=== PATIENT | male | born 1945 | race Caucasian/White ===

== ENCOUNTER → 2016-09-11 | Outpatient (CLI) | payer OTHER ==
[~2016-09-11] MED LIST: ACT/35 PO; ASPI81TA82 PO; CALC-20 PO; FINA5TAB PO; HYDR25TA4 PO; MULT-506 PO; OMEG10007 PO; SIMV20TA2 PO; TAMS0.4C59 PO
[2016-09-11 13:09] LABS: ALT/SGPT 21 U/L (12-78); BLOOD UREA NITROGEN 7 mg/dl (7-18); BUN/CREATININE RATIO 10.6 (10-20); CALCIUM 8.9 mg/dl (8.5-10.1); CARBON DIOXIDE 30 mmol/L (21-32); CHLORIDE 98 mmol/L (98-107); CHOLESTEROL 126 mg/dl (0-200); GLUCOSE 91 mg/dl (70-99); SODIUM 134 mmol/L (136-145)
[2016-09-11 13:13] LABS: ALB/GLOB RATIO 1.1 (0.9-2); ALKALINE PHOSPHATASE 44 U/L (45-117); AST/SGOT 21 U/L (15-37); CHOLESTEROL/HDL RATIO 2.4; HDL CHOLESTEROL 53 mg/dl; LDL CHOLESTEROL CALCULATED 59 mg/dl; TRIGLYCERIDES 71 mg/dl (0-150); VERY LOW DENSITY LIPOPROT CALC 14 mg/dl
== END | disposition home or self-care (01) ==
LOC: C.LABPVFM 07:01
PROVIDERS: ATTEND Family Medicine
DX: E78.5 Hyperlipidemia, unspecified (principal); I10 Essential (primary) hypertension; M85.80 Other specified disorders of bone density and structure, unspecified site; E87.1 Hypo-osmolality and hyponatremia

== ENCOUNTER → 2016-10-23 | Outpatient (CLI) | payer OTHER ==
[2016-10-23 13:39] LABS: BLOOD UREA NITROGEN 8 mg/dl (7-18); BUN/CREATININE RATIO 9.8 (10-20); CREATININE 0.81 mg/dl (0.60-1.40)
[2016-10-23 13:45] LABS: PROSTATE SPECIFIC ANTIGEN 0.441 ng/ml (0.000-4.000)
--- NOTE | 2016-10-27 11:46 | CODING QUERY MEDICAL NECESSITY ---
CQSUPPORTING DIAGNOSIS NEEDED A supporting diagnosis is required for the test/procedure performed on this patient in order for us to be reimbursed by the patient's insurance. Please provide a supporting diagnosis for the following test/procedure listed below next to the test name along with your signature. *If there is no additional diagnosis for this patient that would support the following test/procedure please document that below next to the test/procedure. Test(s)/Procedure(s) that require a supporting diagnosis: DOS 10/23/16 PROSTATE SPECIFIC Provider Signature: Date: Thank you Suzanna Walker [employer] Once completed, please kindly fax back to [phone] For questions please call [phone]
== END | disposition home or self-care (01) ==
LOC: C.LABPVFM 09:04
PROVIDERS: ATTEND Neuromusculoskeletal Medicine & OMM
DX: R39.198 Other difficulties with micturition (principal); Z12.5 Encounter for screening for malignant neoplasm of prostate

== ENCOUNTER → 2016-11-27 | Outpatient (CLI) | payer OTHER | END | disposition home or self-care (01) | LOC: C.LABPVFM 10:37 | PROVIDERS: ATTEND Family Medicine | DX: J02.9 Acute pharyngitis, unspecified (principal) ==

== ENCOUNTER → 2017-03-21 | Outpatient (CLI) | payer OTHER ==
[2017-03-21 13:04] LABS: ALT/SGPT 21 U/L (12-78); AST/SGOT 20 U/L (15-37); BLOOD UREA NITROGEN 8 mg/dl (7-18); BUN/CREATININE RATIO 10.3 (10-20); CALCIUM 8.9 mg/dl (8.5-10.1); CARBON DIOXIDE 28 mmol/L (21-32); CHLORIDE 100 mmol/L (98-107); CREATININE 0.74 mg/dl (0.60-1.40); GLUCOSE 88 mg/dl (70-99); POTASSIUM 4.1 mmol/L (3.5-5.1); SODIUM 134 mmol/L (136-145)
[2017-03-21 13:06] LABS: ALB/GLOB RATIO 0.9 (0.9-2); ALKALINE PHOSPHATASE 43 U/L (45-117); CHOLESTEROL 117 mg/dl (0-200); CHOLESTEROL/HDL RATIO 2.1; HDL CHOLESTEROL 57 mg/dl; LDL CHOLESTEROL CALCULATED 46 mg/dl; TRIGLYCERIDES 68 mg/dl (0-150); VERY LOW DENSITY LIPOPROT CALC 14 mg/dl
== END | disposition home or self-care (01) ==
LOC: C.LABPVFM 07:22
PROVIDERS: ATTEND Family Medicine
DX: R06.00 Dyspnea, unspecified (principal)

== ENCOUNTER → 2017-09-24 | Outpatient (CLI) | payer OTHER ==
[2017-09-24 13:35] LABS: ALBUMIN 3.8 gm/dl (3.4-5.0); ALT/SGPT 21 U/L (12-78); AST/SGOT 20 U/L (15-37); BLOOD UREA NITROGEN 13 mg/dl (7-18); CALCIUM 9.2 mg/dl (8.5-10.1); CARBON DIOXIDE 30 mmol/L (21-32); CREATININE 0.84 mg/dl (0.60-1.40); GLUCOSE 79 mg/dl (70-99); POTASSIUM 4.4 mmol/L (3.5-5.1); SODIUM 134 mmol/L (136-145)
[2017-09-24 13:46] LABS: ALKALINE PHOSPHATASE 44 U/L (45-117); TOTAL PROTEIN 7.4 gm/dl (6.4-8.2)
== END | disposition home or self-care (01) ==
LOC: C.LABPVFM 07:58
PROVIDERS: ATTEND Family Medicine
DX: M85.80 Other specified disorders of bone density and structure, unspecified site (principal); I10 Essential (primary) hypertension; E87.1 Hypo-osmolality and hyponatremia

== ENCOUNTER → 2017-10-30 | Outpatient (CLI) | payer OTHER ==
[2017-10-30 13:24] LABS: BLOOD UREA NITROGEN 9 mg/dl (7-18); CARBON DIOXIDE 28 mmol/L (21-32); CREATININE 0.83 mg/dl (0.60-1.40); GLUCOSE 106 mg/dl (70-99); POTASSIUM 4.2 mmol/L (3.5-5.1); SODIUM 133 mmol/L (136-145)
== END | disposition home or self-care (01) ==
LOC: C.LABPVFM 09:49
PROVIDERS: ATTEND Urology
DX: R39.198 Other difficulties with micturition (principal); I10 Essential (primary) hypertension; M85.80 Other specified disorders of bone density and structure, unspecified site; E03.9 Hypothyroidism, unspecified; R06.00 Dyspnea, unspecified; E87.1 Hypo-osmolality and hyponatremia; R79.89 Other specified abnormal findings of blood chemistry

== ENCOUNTER 2024-03-14 10:23 | Inpatient (IN) ==
--- NOTE | 2024-03-14 10:51 | Emergency Department Note ---
History of Present Illness General Chief complaint: Syncope (Near Syncope) Stated complaint: SYNCOPE, FALL Time Seen by Provider: 03/14/24 10:37 Source: patient, family (Daughter and did show up and I talked to them at length), RN notes reviewed and old records reviewed (08/03/23- [facility]- Mild MR, Mild ) Mode of arrival: EMS Limitations: no limitations History of Present Illness This patient is a 78-year-old male who comes in after having a syncopal episode. He is not exactly sure what happened. He was putting some cereal way and was on the ground he had no trauma he said he eased down he feels fine at present no chest pain or shortness of breath no blood or melena stool. he did have blood in his stool in the past and is scheduled for colonoscopy in the rust.e he is on aspirin but no other blood thinners .no recent illness or fever or chills . no headache ,neck pain or stiffness no abdominal pain. No urinary symptoms. No focal numbness or weakness Home Medications Medication Instructions Recorded Confirmed Type calcium carbonate (Calcium 600) 600 mg PO BID 02/25/19 03/11/24 History multivitamin 1 tab PO DAILY 02/25/19 03/11/24 History cholecalciferol (vitamin D3) 10 800 units PO BID #30 caps 04/04/19 03/11/24 Rx mcg (400 unit) capsule nystatin 100,000 unit/gram topical 1 applic topical TID PRN Jock itch 02/15/21 03/11/24 Rx powder #60 grams diclofenac sodium 1 % topical gel 2 g topical QID #100 grams 12/01/21 03/11/24 Rx (Arthritis Pain (diclofenac)) ketoconazole 2 % topical cream 1 applic topical BID PRN jock itch 11/10/22 03/11/24 Rx #60 grams psyllium husk 0.4 gram capsule 0.4 g PO QDL 03/23/23 03/11/24 History (Metamucil) simvastatin 20 mg tablet 20 mg PO QPM #90 tabs 07/11/23 03/11/24 Rx memantine 10 mg tablet 10 mg PO BID #180 tabs 09/21/23 03/11/24 Rx fluticasone propionate 50 2 spray intranasal DAILY PRN 12/05/23 03/11/24 History mcg/actuation nasal Congestion spray,suspension (Flonase Allergy Relief) peg 3350-sod sulf,[id number] See Rx Instructions PO .COMPLEX #2 03/07/24 Rx 178.7-7.3-0.5-1.12-0.9 gram oral mL soln (Suflave) amlodipine 5 mg tablet 5 mg PO QAM 03/11/24 03/11/24 History donepezil 5 mg tablet 5 mg PO QAM 03/11/24 03/11/24 History finasteride 5 mg tablet 5 mg PO QAM 03/11/24 03/11/24 History levothyroxine 88 mcg tablet 88 mcg PO QAM 03/11/24 03/11/24 History lisinopril 10 mg tablet 10 mg PO QAM 03/11/24 03/11/24 History tamsulosin 0.4 mg capsule 0.4 mg PO HS 03/11/24 03/11/24 History Allergies Allergy/AdvReac Type Severity Reaction Status Date / Time azithromycin [From Zithromax] Allergy Unknown Unknown Verified 03/11/24 08:32 ciprofloxacin AdvReac Mild Diarrhea Verified 03/11/24 08:33 codeine AdvReac Mild Hallucinati Verified 03/11/24 08:33 ng Past Med/Surg History Problem List (Updated 03/14/24 @ 14:47 by López Pretty MD) Diaphoresis (Acute) History of aortic valvular stenosis (Acute) COVID-19 virus antibody negative (Acute) Syncope (Acute) Tremor Memory impairment of gradual onset Arthritis of both hands Allergic rhinitis Vitamin D deficiency Benign localized prostatic hyperplasia with lower urinary tract symptoms (LUTS) Hearing loss History of squamous cell carcinoma in situ Hyponatremia Murmur Tinea cruris Osteoporosis Hypothyroidism Dyslipidemia Benign hypertension Medical History Hearing loss Memory impairment of gradual onset HTN (hypertension) Dyslipidemia Hypothyroidism Murmur pt unaware Tremor Osteoporosis BPH (benign prostatic hyperplasia) Cyclic citrullinated peptide (CCP) antibody positive Surgical History History of colonoscopy History of tooth extraction History of squamous cell carcinoma excision Hx of hernia repair Hx of adenoidectomy Hx of tonsillectomy Family History Grandfather (Paternal) Colorectal cancer Father Myocardial infarction Mother Cancer Denies family history of Ovarian cancer Prostate cancer Breast cancer Social History Smoking Status: Never smoker Second Hand Exposure: No; Do You Dip or Chew Tobacco: No; Hx Alcohol Use: No Hx Substance Use: No Preferred Language: Beninese Communication Ability: Effective Visual Impairment: Limited Hearing Ability: Normal Coordinator Cardiopulmonary Services Required: No Beliefs That Will Affect Care: None marital status: Current Living Situation: Spouse current occupational status: retired How many Children do You have: 1 Feels Safe at Home: Yes Childhood Exposure to Second-Hand Smoke: Yes Diet: regular caffeine: No during the past year weight has: remained stable Dental Care, Regularly: Yes Physical Activity Frequency: 3-4 Times per Week Seatbelt Use: always Sunscreen Use: Yes Assistive Devices: Glasses Review of Systems A total of 10 systems reviewed and were otherwise negative Physical Exam Vital Signs Vital Signs - 24 hr 03/14/24 10:31 03/14/24 10:46 03/14/24 10:48 Temperature 36.4 C L Temperature Source Oral Pulse Rate 66 70 Pulse Rate from SpO2 Sensor 70 Respiratory Rate 15 18 Respiratory Effort / Characteristics Non-Labored Spontaneous Respiratory Depth Normal Blood Pressure 156/74 H Blood Pressure Mean 101 Pulse Oximetry 98 97 100 Oxygen Delivery Method Room Air Room Air Sepsis Recent Fever Within 48 Hours No Sepsis New/Unexplained Change in Mental Status N/A Sepsis Action Taken by Nursing No Action Required 03/14/24 11:00 03/14/24 11:01 03/14/24 11:21 Temperature Temperature Source Pulse Rate 69 63 Pulse Rate from SpO2 Sensor 73 64 Respiratory Rate 19 19 Respiratory Effort / Characteristics Respiratory Depth Blood Pressure 136/107 H Blood Pressure Mean 115 Pulse Oximetry 97 96 Oxygen Delivery Method Sepsis Recent Fever Within 48 Hours Sepsis New/Unexplained Change in Mental Status Sepsis Action Taken by Nursing 03/14/24 11:30 03/14/24 11:33 03/14/24 12:00 Temperature Temperature Source Pulse Rate 62 72 Pulse Rate from SpO2 Sensor 61 70 Respiratory Rate 14 16 Respiratory Effort / Characteristics Respiratory Depth Blood Pressure 121/64 Blood Pressure Mean 95 Pulse Oximetry 98 99 Oxygen Delivery Method Sepsis Recent Fever Within 48 Hours Sepsis New/Unexplained Change in Mental Status Sepsis Action Taken by Nursing 03/14/24 12:00 03/14/24 12:00 03/14/24 12:02 Temperature Temperature Source Pulse Rate 71 Pulse Rate from SpO2 Sensor Respiratory Rate Respiratory Effort / Characteristics Respiratory Depth Blood Pressure 148/78 H 148/78 H Blood Pressure Mean 91 91 Pulse Oximetry Oxygen Delivery Method Sepsis Recent Fever Within 48 Hours Sepsis New/Unexplained Change in Mental Status Sepsis Action Taken by Nursing 03/14/24 12:24 03/14/24 12:30 03/14/24 12:39 Temperature Temperature Source Pulse Rate 76 73 Pulse Rate from SpO2 Sensor 76 72 Respiratory Rate 23 17 Respiratory Effort / Characteristics Respiratory Depth Blood Pressure 140/84 Blood Pressure Mean 101 Pulse Oximetry 98 99 Oxygen Delivery Method Sepsis Recent Fever Within 48 Hours Sepsis New/Unexplained Change in Mental Status Sepsis Action Taken by Nursing 03/14/24 12:48 03/14/24 12:59 03/14/24 13:00 Temperature Temperature Source Pulse Rate 73 Pulse Rate from SpO2 Sensor 75 Respiratory Rate 17 Respiratory Effort / Characteristics Respiratory Depth Blood Pressure 155/77 H 149/86 H Blood Pressure Mean 117 89 Pulse Oximetry 98 Oxygen Delivery Method Sepsis Recent Fever Within 48 Hours Sepsis New/Unexplained Change in Mental Status Sepsis Action Taken by Nursing 03/14/24 13:09 Temperature Temperature Source Pulse Rate 79 Pulse Rate from SpO2 Sensor 79 Respiratory Rate 18 Respiratory Effort / Characteristics Respiratory Depth Blood Pressure Blood Pressure Mean Pulse Oximetry 97 Oxygen Delivery Method Sepsis Recent Fever Within 48 Hours Sepsis New/Unexplained Change in Mental Status Sepsis Action Taken by Nursing General: Well developed well nourished older male who appears in no acute distress, breathing comfortably on room air. Normal speech HEENT: Normal cephalic atraumatic. Pupils are equal round and reactive to light. Sclera anicteric. Extraocular movements are intact. Oropharynx is pink with moist mucous membranes. No swelling of the mouth lips or tongue. Neck: Supple with a midline trachea. No meningeal signs or stiffness, no JVD or bruits. No Stridor. Chest: Clear to auscultation bilaterally. No wheezes or rhonchi. No increased work of breathing. Heart: Regular rate and rhythm.he does have a 2 out of 6 systolic murmur heard in the right sternal border Abdomen: Soft nontender, nondistended without rebound guarding or rigidity. Extremities: No cyanosis clubbing or edema. No calf tenderness or assymetry Spine/Back. Non tender to palpation. No CVA tenderness Skin: Good turgor without rashes. Neurologic exam: Cranial nerves two through 12 are intact. Motor and sensation are intact and symmetrical throughout. Course Administered Medications Discontinued Medications Sodium Chloride (Nss) 500 mls @ 999 mls/hr IV .Q31M ONE Stop: 03/14/24 13:05 Last Infusion: 03/14/24 13:27 Dose: Infused Documented By: Admin: 03/14/24 12:41 Dose: 999 mls/hr Documented By: ROSANNE Medical Decision Making Differential Diagnosis Syncope, arrhythmia, valvular heart disease, anemia, dehydration Medical Records Attestation: I reviewed the patient's medical records. Home Medications Current Medication List: was personally reviewed by me Laboratory Data Attestation: I reviewed the patient's lab results. 03/14/24 10:37 03/14/24 10:37 Lab Results 03/14/24 03/14/24 03/14/24 Range/Units 10:37 11:00 12:25 WBC 10.64 (4.8-10.8) K/ul RBC 4.62 L (4.70-6.10) M/uL Hgb 14.7 (14.0-18.0) g/dl Hct 43.1 (42.0-52.0) % MCV 93.3 (80.0-100.0) fL MCH 31.8 (25.0-34.0) pg MCHC 34.1 (32.0-36.0) g/dL RDW Std Deviation 45.4 (36.4-46.3) fL RDW Coeff of Tiny 13.3 (11.5-14.5) % Plt Count 248 (130-400) K/uL MPV 10.0 (9.4-12.4) fL Immature Gran % (Auto) 0.8 % Neut % (Auto) 80.5 % Lymph % (Auto) 8.0 % [place] % (Auto) 8.4 % Eos % (Auto) 1.9 % Baso % (Auto) 0.4 % Neut # (Auto) 8.58 H (1.40-6.50) K/uL Lymph # (Auto) 0.85 L (1.20-3.40) K/uL [place] # (Auto) 0.89 H (0.11-0.59) K/uL Eos # (Auto) 0.20 (0.00-0.50) K/uL Baso # (Auto) 0.04 (0.00-0.20) K/uL Immature Gran # (Auto) 0.08 (0.01-0.20) K/uL Sodium 132 L (136-145) mmol/L Potassium 4.1 (3.5-5.1) mmol/L Chloride 97 L (98-107) mmol/L Carbon Dioxide 28 (21-32) mmol/L Anion Gap 7 (3-11) BUN 13 (6-23) mg/dl Creatinine 0.93 (0.6-1.4) mg/dl Est Cr Clr Drug Dosing 62.3 ml/min eGFR 83.53 BUN/Creatinine Ratio 14.0 (10-20) Glucose 117 H (70-99(Fasting)) mg/dl Calcium 9.6 (8.6-10.3) mg/dl Total Bilirubin 0.6 (0.2-1.0) mg/dl AST 17 (13-39) U/L ALT 10 (7-52) U/L Alkaline Phosphatase 47 (34-104) U/L Troponin I High Sens 7.0 (0-20) pg/ml B-Natriuretic Peptide 69 (0-100) pg/ml Total Protein 7.4 (6.0-8.3) gm/dl Albumin 4.3 (3.4-5.0) gm/dl Globulin 3.1 (2.5-4.0) gm/dl Albumin/Globulin Ratio 1.4 (0.9-2) Lipase 6 L (11-82) U/L TSH 11.715 H (0.300-4.500) uIu/ml Free T4 0.89 (0.61-1.60) ng/dl Adenovirus (PCR) Not Detected (NotDetected) B. pertussis DNA (PCR) Not Detected (NotDetected) B.parapertussis DNA PCR Not Detected (NotDetected) C. pneumoniae DNA (PCR) Not Detected (NotDetected) Coronavirus OC43 (PCR) Not Detected (NotDetected) Coronavirus HKU1 (PCR) Not Detected (NotDetected) Coronavirus 229E (PCR) Not Detected (NotDetected) SARS-CoV-2 (PCR) Not Detected (NotDetected) Coronavirus NL63 (PCR) Not Detected (NotDetected) Human Metapneumovir PCR Not Detected (NotDetected) Influenza Type A (PCR) Not Detected (NotDetected) Influenza Type B (PCR) Not Detected (NotDetected) M. pneumoniae (PCR) Not Detected (NotDetected) Parainfluenza 1 (PCR) Not Detected (NotDetected) Parainfluenza 2 (PCR) Not Detected (NotDetected) Parainfluenza 3 (PCR) Not Detected (NotDetected) Parainfluenza 4 (PCR) Not Detected (NotDetected) RSV (PCR) Not Detected (NotDetected) Entero/Rhino (PCR) Not Detected (NotDetected) 03/14/24 Range/Units 12:30 WBC (4.8-10.8) K/ul RBC (4.70-6.10) M/uL Hgb (14.0-18.0) g/dl Hct (42.0-52.0) % MCV (80.0-100.0) fL MCH (25.0-34.0) pg MCHC (32.0-36.0) g/dL RDW Std Deviation (36.4-46.3) fL RDW Coeff of Tiny (11.5-14.5) % Plt Count (130-400) K/uL MPV (9.4-12.4) fL Immature Gran % (Auto) % Neut % (Auto) % Lymph % (Auto) % [place] % (Auto) % Eos % (Auto) % Baso % (Auto) % Neut # (Auto) (1.40-6.50) K/uL Lymph # (Auto) (1.20-3.40) K/uL [place] # (Auto) (0.11-0.59) K/uL Eos # (Auto) (0.00-0.50) K/uL Baso # (Auto) (0.00-0.20) K/uL Immature Gran # (Auto) (0.01-0.20) K/uL Sodium (136-145) mmol/L Potassium (3.5-5.1) mmol/L Chloride (98-107) mmol/L Carbon Dioxide (21-32) mmol/L Anion Gap (3-11) BUN (6-23) mg/dl Creatinine (0.6-1.4) mg/dl Est Cr Clr Drug Dosing ml/min eGFR BUN/Creatinine Ratio (10-20) Glucose (70-99(Fasting)) mg/dl Calcium (8.6-10.3) mg/dl Total Bilirubin (0.2-1.0) mg/dl AST (13-39) U/L ALT (7-52) U/L Alkaline Phosphatase (34-104) U/L Troponin I High Sens 8.0 (0-20) pg/ml B-Natriuretic Peptide (0-100) pg/ml Total Protein (6.0-8.3) gm/dl Albumin (3.4-5.0) gm/dl Globulin (2.5-4.0) gm/dl Albumin/Globulin Ratio (0.9-2) Lipase (11-82) U/L TSH (0.300-4.500) uIu/ml Free T4 (0.61-1.60) ng/dl Adenovirus (PCR) (NotDetected) B. pertussis DNA (PCR) (NotDetected) B.parapertussis DNA PCR (NotDetected) C. pneumoniae DNA (PCR) (NotDetected) Coronavirus OC43 (PCR) (NotDetected) Coronavirus HKU1 (PCR) (NotDetected) Coronavirus 229E (PCR) (NotDetected) SARS-CoV-2 (PCR) (NotDetected) Coronavirus NL63 (PCR) (NotDetected) Human Metapneumovir PCR (NotDetected) Influenza Type A (PCR) (NotDetected) Influenza Type B (PCR) (NotDetected) M. pneumoniae (PCR) (NotDetected) Parainfluenza 1 (PCR) (NotDetected) Parainfluenza 2 (PCR) (NotDetected) Parainfluenza 3 (PCR) (NotDetected) Parainfluenza 4 (PCR) (NotDetected) RSV (PCR) (NotDetected) Entero/Rhino (PCR) (NotDetected) Imaging Data Attestation: I personally reviewed and interpreted this imaging study as follows: My Impression: Chest x-rayno acute infiltrate, failure, pneumothorax seen Head CTno hemorrhage or mass effect seen Radiologist's Impression: Chest X-Ray 03/14/24 10:46 XR chest 1V portable HISTORY: 78 years-old Male Chest pain, nonspecific COMPARISON: 09/27/2012 TECHNIQUE: AP view of the chest FINDINGS: Cardiomediastinal and hilar silhouettes are within normal limits. Atherosclerosis of the aorta. No pneumothorax, pleural effusion or airspace consolidation. Spondylitic spurring of the spine. IMPRESSION: No acute process. ACT 112: Negative or not required by law. The above report was generated using voice recognition software. It may contain grammatical, syntax or spelling errors. Electronically signed by: Jarred Quintanilla M.D. 03/14/2024 12:[address] 03/14/24 12:35 CT head/brain wo con CLINICAL HISTORY: 78 years-old Male with syncope/fall. Acute head trauma TECHNIQUE: Multiple axial CT images of the head were obtained without contrast. A dose lowering technique was utilized adhering to the principles of ALARA. CT DOSE: 547.75 mGy.cm COMPARISON: None. FINDINGS: No acute intracranial hemorrhage, midline shift, intracranial mass, hydrocephalus, territorial ischemia or abnormal extra-axial collection. Involutional changes with probable mild chronic microvascular ischemic disease. The calvarium is intact. The paranasal sinuses, mastoid air cells, and middle ear cavities are clear. IMPRESSION: No acute intracranial abnormality or calvarial fracture. ACT 112: Negative or not required by law. The above report was generated using voice recognition software. It may contain grammatical, syntax or spelling errors. Electronically signed by: Jarred Quintanilla M.D. 03/14/2024 1:36 PM ECG Data Attestation: I personally reviewed and interpreted this ECG as follows: Indication: + syncope Rate (beats per minute): 72 Rhythm: + normal sinus ECG Intervals/blocks: + Normal QRS, + Normal QT and + Normal IL ECG [place]: + Normal ECG ST segments: + Normal ST segments ECG Findings: no PACs or no PVCs Comparison ECG Date: from (10/27/2012) Change: no significant change Additional Comments: EKG #2: Normal sinus rhythm rate of 70 no acute ischemic changes or ectopy no change compared EKG #1 MDM Narrative This patient comes in as described above. He was placed in room A10. He apparently had a syncopal episode he is asymptomatic he looks well. IV access established he was given gentle rehydration with a 500 cc normal saline bolus. Multiple blood testing was obtained EKG shows no ischemic changes or ectopy. He had no trauma. He has no headache he is on no blood thinners. His initial EKG was unremarkable he was stable on the personnel monitor. His second EKG shows no change compared to the first his initial troponin was negative we ordered a second. He has no significant electrolyte or metabolic abnormality. His family showed up and said that he was very diaphoretic after this happened and they are not sure about trauma or not so we did order CAT scan of his head. He does have a normal neurologic exam and is on no blood thinners. CAT scan of his head was unremarkable. Bio fire was also negative. Second EKG was unchanged compared to first troponin was also negative. Talking to family he was very diaphoretic after passing out he was shaky I do not think is likely seizure. Reviewing the echo, he he did have an echo earlier this year which showed mild aortic stenosis and mild MR which makes valvular heart disease less likely but still possible. I do think given his age and his comorbidities he would benefit from observation and monitoring. I have consulted Dr. Beckham , and the [facility] hospitalist team, to see this patient in the ER for these measures. Continuous cardiac monitoring: Orders placed in EMR for continuous cardiac monitoring: Upon my evaluation patient was noted to be in normal sinus rhythm rate 72 Impression & Plan Syncope, COVID-19 virus antibody negative, History of aortic valvular stenosis, Diaphoresis Discharge Plan Visit Data Chief Complaint: Syncope (Near Syncope) Stated Complaint: SYNCOPE, FALL ED Provider: López Pretty Discharge Problem: Syncope, COVID-19 virus antibody negative, History of aortic valvular stenosis, Diaphoresis Forms Stand Alone Forms: My [facility] Prescriptions Prescriptions: No Action cholecalciferol (vitamin D3) 400 unit capsule 800 units PO BID Qty: 30 0RF nystatin 100,000 unit/gram powder 1 applic TOP TID PRN (Reason: Jock itch) Qty: 60 11RF ketoconazole 2 % cream 1 applic topical BID PRN (Reason: jock itch) Qty: 60 11RF simvastatin 20 mg tablet 20 mg PO QPM Qty: 90 3RF Suflave 178.7-7.3-0.5 gram recon soln See Rx Instructions PO .COMPLEX Qty: 2 0RF Rx Instructions: orally; TAKE FIRST DOSE AT 6 PM AND SECOND DOSE 6 HOURS PRIOR TO PROCEDURE BIN: [id number] PCN: [id number] GROUP: [id number] psyllium husk [Metamucil] 0.4 gram capsule 0.4 g PO QDL memantine 10 mg tablet 10 mg PO BID Qty: 180 3RF fluticasone propionate [Flonase Allergy Relief] 50 mcg/actuation spray,suspension 2 spray intranasal DAILY PRN (Reason: Congestion) Rx Instructions: administer into each nostril calcium carbonate [Calcium 600] 600 mg calcium (1,500 mg) tablet 600 mg PO BID multivitamin tablet 1 tab PO DAILY diclofenac sodium [Arthritis Pain (diclofenac)] 1 % gel 2 g topical QID Qty: 100 5RF Rx Instructions: apply to single elbow, wrist or hand; for hand includes palm/fingers/back of hand donepezil 5 mg tablet 5 mg PO QAM amlodipine 5 mg tablet 5 mg PO QAM Rx Instructions: TAKE 1 TABLET EVERY MORNING levothyroxine 88 mcg tablet 88 mcg PO QAM tamsulosin 0.4 mg capsule 0.4 mg PO HS Rx Instructions: Take 30 minutes after a meal lisinopril 10 mg tablet 10 mg PO QAM finasteride 5 mg tablet 5 mg PO QAM Referrals Referrals: Gigi Smiley DO [Primary Care Provider] - Discharge Problem: Syncope Qualifiers: Syncope type: unspecified Qualified Code(s): R55 - Syncope and collapse
[2024-03-14 11:13] LABS: Basophils # (auto) 0.04 K/uL (0.00-0.20); Basophils % (auto) 0.4 %; Eosinophils % (auto) 1.9 %; Hematocrit (blood only) 43.1 % (42.0-52.0); Hemoglobin 14.7 g/dl (14.0-18.0); Immature Granulocytes # (auto) 0.08 K/uL (0.01-0.20); Immature Granulocytes % (auto) 0.8 %; Lymphocytes # (auto) 0.85 K/uL (1.20-3.40); Mean Corpuscular Hemoglobin 31.8 pg (25.0-34.0); Mean Corpuscular Hgb Conc 34.1 g/dL (32.0-36.0); Mean Corpuscular Volume 93.3 fL (80.0-100.0); Monocytes # (auto) 0.89 K/uL (0.11-0.59); Monocytes % (auto) 8.4 %; Neutrophils # (auto) 8.58 K/uL (1.40-6.50); Neutrophils % (auto) 80.5 %; Platelet Count 248 K/uL (130-400); RDW Coefficient of Variation 13.3 % (11.5-14.5); RDW Standard Deviation 45.4 fL (36.4-46.3); Red Blood Count 4.62 M/uL (4.70-6.10); White Blood Count 10.64 K/ul (4.8-10.8)
[2024-03-14 11:30] LABS: Albumin Globulin Ratio 1.4 (0.9-2); Albumin Level 4.3 gm/dl (3.4-5.0); Bilirubin,Total 0.6 mg/dl (0.2-1.0); Calcium 9.6 mg/dl (8.6-10.3); Creatinine Clr Calc Pharmacy 62.3 ml/min; Globulin 3.1 gm/dl (2.5-4.0); Potassium 4.1 mmol/L (3.5-5.1); Total Protein 7.4 gm/dl (6.0-8.3)
[2024-03-14 11:45] LABS: Thyroid Stimulating Hormone 11.715 uIu/ml (0.300-4.500)
--- NOTE | 2024-03-14 12:03 | XRay Report ---
XR chest 1V portable HISTORY: 78 years-old Male Chest pain, nonspecific COMPARISON: 09/27/2012 TECHNIQUE: AP view of the chest FINDINGS: Cardiomediastinal and hilar silhouettes are within normal limits. Atherosclerosis of the aorta. No pn eumothorax, pleural effusion or airspace consolidation. Spondylitic spurring of the spine. IMPRESSION: No acute process. ACT 112: Negative or not required by law. The above report was generated using voice recognition software. It may contain grammatical, syntax o r spelling errors. Electronically signed by: Jarred Quintanilla M.D. 03/14/2024 12:02 PM
[2024-03-14 12:19] LABS: T4 Free Thyroxine 0.89 ng/dl (0.61-1.60)
[2024-03-14] MEDS: SODIUM CHLORIDE 0.9% 500 ML IV ONE (12:41)
--- NOTE | 2024-03-14 13:37 | CT Scan Report ---
CT head/brain wo con CLINICAL HISTORY: 78 years-old Male with syncope/fall. Acute head trauma TECHNIQUE: Multiple axial CT images of the head were obtained without contrast. A dose lowering tech nique was utilized adhering to the principles of ALARA. CT DOSE: 547.75 mGy.cm COMPARISON: None. FINDINGS: No acute intracranial hemorrhage, midline shift, intracranial mass, hydrocephalus, territorial ischem ia or abnormal extra-axial collection. Involutional changes with probable mild chronic microvascular ischemic disease. The calvarium is intact. The paranasal sinuses, mastoid air cells, and middle ear cavities are clear . IMPRESSION: No acute intracranial abnormality or calvarial fracture. ACT 112: Negative or not required by law. The above report was generated using voice recognition software. It may contain grammatical, syntax o r spelling errors. Electronically signed by: Jarred Quintanilla M.D. 03/14/2024 1:36 PM
[2024-03-14 13:41] LABS: Adenovirus PCR Not Detected (NotDetected); Bordetella parapertussis PCR Not Detected (NotDetected); Bordetella pertussis PCR Not Detected (NotDetected); Chlamydia pneumoniae PCR Not Detected (NotDetected); Coronavirus 229E PCR Not Detected (NotDetected); Coronavirus CoV-2 (COVID19)PCR Not Detected (NotDetected); Coronavirus HKU1 PCR Not Detected (NotDetected); Coronavirus NL63 PCR Not Detected (NotDetected); Coronavirus OC43PCR Not Detected (NotDetected); Human Metapneumovirus PCR Not Detected (NotDetected); Influenza A PCR Not Detected (NotDetected); Influenza B PCR Not Detected (NotDetected); Mycoplasma pneumoniae PCR Not Detected (NotDetected); Parainfluenza Virus 1 PCR Not Detected (NotDetected); Parainfluenza Virus 2 PCR Not Detected (NotDetected); Parainfluenza Virus 3 PCR Not Detected (NotDetected); Parainfluenza Virus 4 PCR Not Detected (NotDetected); Respiratory Syncytial VirusPCR Not Detected (NotDetected); Rhinovirus/Enterovirus PCR Not Detected (NotDetected)
--- NOTE | 2024-03-14 14:09 | History & Physical Report ---
Date of Service March 14, 2024 Assessment & Plan (1) Syncope: Plan: No symptoms prior and appears back to his normal self. Somewhat concerning for cardiac arrhythmia. Plan to monitor overnight on telemetry but if no abnormal rhythm consider monitoring analyst as outpatient. Murmur on exam although this has been present for many years with only mild aortic stenosis on echo in July - due to new syncope however we will repeat this Continue his usual antihypertensives with amlodipine, lisinopril - monitor for orthostatics in a.m. Plan Hypothyroidism - TSH elevated but free T4 normal, continue his usual levothyro xine VTE prophylaxis - SCDs Diet - regular Disposition - observation to med/tele Admission and Anticipated Discharge Date Admission Date: March 14, 2024 History of Present Illness Chief Complaint: Syncope Primary Care Provider: Gigi Smiley DO Randall Bailey is a 78 year old male who presents to the ER following a syncopal event earlier today. He is unsure exactly what happened. He was at a countertop in his kitchen. He felt fine prior to the event but does not remember falling to the ground. No lightheadedness, shortness of breath or chest pain prior to f alling. He woke up on the floor and was found by his . No postictal phase. No seizure-like activity noticed by his . He is currently feeling back to his normal self. Allergies Allergy/AdvReac Type Severity Reaction Status Date / Time azithromycin [From Zithromax] Allergy Unknown Unknown Verified 03/11/24 08:32 ciprofloxacin AdvReac Mild Diarrhea Verified 03/11/24 08:33 codeine AdvReac Mild Hallucinati Verified 03/11/24 08:33 ng Home Medications Medication Instructions Recorded Confirmed Type calcium carbonate (Calcium 600) 600 mg PO BID 02/25/19 03/11/24 History multivitamin 1 tab PO DAILY 02/25/19 03/11/24 History cholecalciferol (vitamin D3) 10 800 units PO BID #30 caps 04/04/19 03/11/24 Rx mcg (400 unit) capsule nystatin 100,000 unit/gram topical 1 applic topical TID PRN Jock itch 02/15/21 03/11/24 Rx powder #60 grams diclofenac sodium 1 % topical gel 2 g topical QID #100 grams 12/01/21 03/11/24 Rx (Arthritis Pain (diclofenac)) ketoconazole 2 % topical cream 1 applic topical BID PRN jock itch 11/10/2207/04 Rx #60 grams psyllium husk 0.4 gram capsule 0.4 g PO QDL 03/23/23 03/11/24 History (Metamucil) simvastatin 20 mg tablet 20 mg PO QPM #90 tabs 07/11/23 03/11/24 Rx memantine 10 mg tablet 10 mg PO BID #180 tabs 09/21/23 03/11/24 Rx fluticasone propionate 50 2 spray intranasal DAILY PRN 12/05/23 03/11/24 History mcg/actuation nasal Congestion spray,suspension (Flonase Allergy Relief) peg 3350-sod sulf,[id number] See Rx Instructions PO .COMPLEX #2 03/07/24 Rx 178.7-7.3-0.5-1.12-0.9 gram oral mL soln (Suflave) amlodipine 5 mg tablet 5 mg PO QAM 03/11/24 03/11/24 History donepezil 5 mg tablet 5 mg PO QAM 03/11/24 03/11/24 History finasteride 5 mg tablet 5 mg PO QAM 03/11/24 03/11/24 History levothyroxine 88 mcg tablet 88 mcg PO QAM 03/11/24 03/11/24 History lisinopril 10 mg tablet 10 mg PO QAM 03/11/24 03/11/24 History tamsulosin 0.4 mg capsule 0.4 mg PO HS 03/11/24 03/11/24 History Past Med/Surg History Problem List (Updated 03/14/24 @ 22:40 by Gurwinder Beckham MD) Diaphoresis (Acute) History of aortic valvular stenosis (Acute) Syncope (Acute) Tremor Memory impairment of gradual onset Arthritis of both hands Allergic rhinitis Vitamin D deficiency Benign localized prostatic hyperplasia with lower urinary tract symptoms (LUTS) Hearing loss History of squamous cell carcinoma in situ Hyponatremia Murmur Tinea cruris Osteoporosis Hypothyroidism Dyslipidemia Benign hypertension Medical History Hearing loss Memory impairment of gradual onset HTN (hypertension) Dyslipidemia Hypothyroidism Murmur pt unaware Tremor Osteoporosis BPH (benign prostatic hyperplasia) Cyclic citrullinated peptide (CCP) antibody positive Surgical History History of colonoscopy History of tooth extraction History of squamous cell carcinoma excision Hx of hernia repair Hx of adenoidectomy Hx of tonsillectomy Family History Grandfather (Paternal) Colorectal cancer Father Myocardial infarction Mother Cancer Denies family history of Ovarian cancer Prostate cancer Breast cancer Social History Smoking Status: Never smoker Second Hand Exposure: No; Do You Dip or Chew Tobacco: No; Hx Alcohol Use: No Hx Substance Use: No Preferred Language: Maltese Communication Ability: Effective Visual Impairment: Limited Hearing Ability: Normal Relationship Executive Required: No Beliefs That Will Affect Care: None marital status: Current Living Situation: Spouse current occupational status: retired How many Children do You have: 1 Other Information That Helps Us Care for You: No Feels Safe at Home: Yes Safety Concerns: Feels Safe At This Time Childhood Exposure to Second-Hand Smoke: Yes Diet: regular caffeine: No during the past year weight has: remained stable Dental Care, Regularly: Yes Physical Activity Frequency: 3-4 Times per Week Seatbelt Use: always Sunscreen Use: Yes Assistive Devices: Glasses Review of Systems Review of Systems: All systems reviewed & are unremarkable except as noted in HPI & below Physical Exam Constitutional: WD/WN, vitals as above Eyes: PERRL, conjunctivae normal, anicteric sclerae ENMT: external ear and nose normal, oropharynx normal Respiratory: normal respiratory effort, lungs clear to auscultation Cardiovascular: Rate/Rhythm: regular rate and regular rhythm Heart Sounds: + murmur (GIANCARLO loudest in LUSB) Gastrointestinal (Abdomen): normal bowel sounds, soft, nontender, no hepatosplenomegaly Musculoskeletal: no cyanosis or clubbing, extremities motor strength 5/5 Skin: no rashes, warm and dry Neurologic: moves all extremities and awake; not confused Psychiatric: A+Ox3, euthymic affect Results & Data Results & Data Vital Signs (Past 12 Hours) Vital Signs Temp Pulse Resp BP Pulse Ox O2 Del Method 03/14/24 13:09 79 18 97 03/14/24 13:00 149/86 H 10/04/24 12:59 155/77 H 03/14/24 12:48 73 17 98 03/14/24 12:39 73 17 99 03/14/24 12:30 140/84 03/14/24 12:24 76 23 98 03/14/24 12:02 71 03/14/24 12:00 148/78 H 03/14/24 12:00 148/78 H 03/14/24 12:00 72 16 99 03/14/24 11:33 62 14 98 03/14/24 11:30 121/64 03/14/24 11:21 63 19 96 03/14/24 11:01 136/107 H 03/14/24 11:00 69 19 97 03/14/24 10:48 70 18 100 03/14/24 10:46 97 Room Air 03/14/24 10:31 36.4 C L 66 15 156/74 H 98 Room Air Laboratory Results Abnormal lab results 03/14/24 Range/Units 10:37 RBC 4.62 L (4.70-6.10) M/uL Neut # (Auto) 8.58 H (1.40-6.50) K/uL Lymph # (Auto) 0.85 L (1.20-3.40) K/uL Churchill # (Auto) 0.89 H (0.11-0.59) K/uL Sodium 132 L (136-145) mmol/L Chloride 97 L (98-107) mmol/L Glucose 117 H (70-99(Fasting)) mg/dl Lipase 6 L (11-82) U/L TSH 11.715 H (0.300-4.500) uIu/ml Diagnostic Findings CT head/brain wo con CLINICAL HISTORY: 78 years-old Male with syncope/fall. Acute head trauma TECHNIQUE: Multiple axial CT images of the head were obtained without contrast. A dose lowering technique was utilized adhering to the principles of ALARA. CT DOSE: 547.75 mGy.cm COMPARISON: None. FINDINGS: No acute intracranial hemorrhage, midline shift, intracranial mass, hydrocephal us, territorial ischemia or abnormal extra-axial collection. Involutional changes with probable mild chronic microvascular ischemic disease. The calvarium is intact. The paranasal sinuses, mastoid air cells, and middle ear cavities are clear. IMPRESSION: No acute intracranial abnormality or calvarial fracture. XR chest 1V portable HISTORY: 78 years-old Male Chest pain, nonspecific COMPARISON: 09/27/2012 TECHNIQUE: AP view of the chest FINDINGS: Cardiomediastinal and hilar silhouettes are within normal limits. Atherosclerosis of the aorta. No pneumothorax, pleural effusion or airspace consolidation. Spondylitic spurring of the spine. IMPRESSION: No acute process. Medications Administered ER medications given: Normal saline 500 mg bolus ECG Rate (beats per minute): 72 Rhythm: normal sinus Findings: no acute ischemic change Comparison ECG Date: from (September 27, 2012) Change: no significant change Code Status & VTE Plan Code Status Full VTE Prophylaxis Plan VTE Prophylaxis will be ordered: Yes PG Care Time/CCT Total # of Minutes Spent Total Time Spent with Patient: Total time spent is greater than 50% in coordination of care (as documented) at patient's floor/unit and/or counseling patient: Coding Level of Care Code 32948 INT INP/OBS CARE 2/55MIN Diagnoses Syncope, unspecified syncope type R55 Syncope type: unspecified (1) Syncope Syncope type: unspecified Qualified Code(s): R55 - Syncope and collapse
[2024-03-14] MEDS: FINASTERIDE 5 MG TAB PO STA (15:55)
[2024-03-14] MEDS: amLODIPine BESYLATE 5 MG TAB PO STA (15:55)
[2024-03-14] MEDS: lisinopril 10 MG TAB PO STA (15:55)
[2024-03-14 16:07] LABS: Appearance Urine Cloudy (Clear); Bacteria Urine Automated None Seen (None Seen); Bilirubin Urine Negative (Negative); Blood Urine Negative (Negative); Color Urine Yellow; Epithelial Cell Urine Auto 0-2 /hpf (0-2); Glucose Urine UA Negative (Negative); Hyaline Casts Urine Present /lpf (None Presnt); Ketones Urine 1+ (Negative); Leukocyte Esterase Urine Negative (Negative); Nitrite Urine Negative (Negative); Protein Urine Trace (Negative); Specific Gravity Urine 1.013 (1.000-1.030); Urobilinogen Urine Negative (Negative); WBC Urine Automated 0-5 /hpf (0-5); pH Urine 8.5 (4.5-7.5)
[2024-03-14 16:17] LABS: Troponin I High Sensitivity 8.8 pg/ml (0-20)
[2024-03-14] MEDS: ACETAMINOPHEN 325 MG TAB PO PRN (18:18)
--- NOTE | 2024-03-14 18:40 | Electrocardiogram Report ---
Test Reason : Blood Pressure : */* mmHG Vent. Rate : 72 BPM Atrial Rate : 72 BPM P-R Int : 164 ms QRS Dur : 86 ms QT Int : 422 ms P-R-T Axes : 68 65 61 degrees QTcB Int : 462 ms Normal sinus rhythm Possible Left atrial enlargement Borderline ECG Confirmed by Reji Lopez ([id number]) on 03/14/2024 6:40:30 PM Referred By: REFERRED SELF Confirmed By: Reji Lopez
--- NOTE | 2024-03-14 18:45 | Electrocardiogram Report ---
Test Reason : Blood Pressure : */* mmHG Vent. Rate : 69 BPM Atrial Rate : 69 BPM P-R Int : 160 ms QRS Dur : 88 ms QT Int : 430 ms P-R-T Axes : 57 48 53 degrees QTcB Int : 460 ms Normal sinus rhythm Normal ECG When compared with ECG of 14-Mar-2024 10:41, (unconfirmed) No significant change was found Confirmed by Reji Lopez ([id number]) on 03/14/2024 6:45:06 PM Referred By: REFERRED SELF Confirmed By: Reji Lopez
[2024-03-14] MEDS: MEMANTINE HCL 10 MG TAB PO SCH (23:49)
[2024-03-14] MEDS: SIMVASTATIN 20 MG TAB PO SCH (23:49)
[2024-03-14] MEDS: TAMSULOSIN HCL 0.4 MG CAP PO SCH (23:49)
[2024-03-15] MEDS: LEVOTHYROXINE SODIUM 88 MCG TABLET PO SCH (05:37)
[2024-03-15] MEDS: FINASTERIDE 5 MG TAB PO SCH (07:45)
[2024-03-15] MEDS: lisinopril 10 MG TAB PO SCH (07:45)
[2024-03-15] MEDS: amLODIPine BESYLATE 5 MG TAB PO SCH (07:45)
[2024-03-15] MEDS: DONEPEZIL HCL 5 MG TAB PO SCH (07:45)
[2024-03-15] MEDS: DICLOFENAC SOD 1% GEL 100 GM TUBE EXT SCH (07:47)
[2024-03-15 09:30] LABS: Partial Thromboplastin Ratio 1.1; Partial Thromboplastin Time 30 Seconds (21-31); Prothrombin Time 11.1 Seconds (9.0-12.0)
[2024-03-15 09:34] LABS: D Dimer 520 ug/L FEU (0-500)
--- NOTE | 2024-03-15 11:49 | Hospitalist Progress Note ---
Date of Service March 15, 2024 Assessment & Plan (1) Syncope: (2) History of aortic valvular stenosis: (3) Benign hypertension: (4) Dyslipidemia: (5) Hypothyroidism: (6) Memory impairment of gradual onset: (7) Benign localized prostatic hyperplasia with lower urinary tract symptoms (LUTS): Plan 78-year-old male with past medical history of memory impairment, hypertension, hypothyroidism, BPH, aortic stenosis, hyperlipidemia presents to the ED after syncopal episode at home where he was found on the ground but does not member falling to the ground. He was found by his . #Syncope #Essential hypertension #Hyperlipidemia #Aortic stenosis Chest x-ray did not show any evidence of infection CT head was unremarkable EKG with no ischemic changes Troponin negative 2D echo done: Results pending Orthostatic vital signs were checked this morning: Patient is orthostatic Continue orthostatic vital signs 3 times daily for now Check D-dimer: If D-dimer elevated then will need CTA of the chest given syncope symptoms Hold amlodipine 5 mg daily for now Continue lisinopril 10 mg p.o. daily with hold parameters for orthostatic vital signs Continue statin Check B12 Continue telemetry monitoring: So far no events noted PT consult #Hypothyroidism Outpatient registered pharmacy technician is Dr. Moyer TSH is 11.715 Free T4 is 0.89 Continue levothyroxine 88 mcg daily Outpatient follow-up with registered pharmacy technician Dr. Moyer to recheck outpatient TFTs and adjust medication doses #Memory impairment Continue Namenda and Aricept Supportive care from nursing staff #BPH Continue Proscar 5 mg p.o. daily and Flomax 0.4 mg p.o. nightly Flomax can also cause orthostatic hypotension Monitor vital signs CODE STATUS: Full code DVT prophylaxis: Start Lovenox 40 mg subcutaneous daily Await PT consult for recommendations for discharge planning Discharge planning likely in the next 24 to 48 hours based on clinical improvement and PT recommendations and further testing Care plan discussed with patient, nursing staff Admission and Anticipated Discharge Date Admission Date: March 14, 2024 Subjective Patient seen and examined H&P reviewed Labs reviewed Radiology reviewed Telemetry reviewed Patient was orthostatic this morning with systolic blood pressure 164 lying down and standing systolic blood pressure 124 Patient currently feels better Denies any fever, chills headache, dizziness, lightheadedness, chest pain, shortness of breath, nausea, vomiting, diarrhea, abdominal pain, urinary symptoms Social history: Patient lives at home with his . Independent of ADLs. Does not drive. Denies tobacco use and alcohol use Review of Systems Review of Systems: As per HPI Physical Exam Physical Exam: General: No acute distress Psych: Awake and alert HEENT: Anicteric sclera, moist oral mucosa CVS: Regular rate and rhythm, systolic murmur audible Lungs: Bilateral air entry, no wheezing noted Abdomen: Soft, nontender, no rebound, no guarding Ext: No lower extremity edema, no calf tenderness Neuro: No focal motor deficits noted, able to move all 4 extremities Results & Data Results & Data Vital Signs (Past 12 Hours) Vital Signs Temp Pulse Pulse Resp BP Pulse Ox O2 Del Method 03/15/24 11:41 36.4 C L 74 18 144/67 H 98 Room Air 03/15/24 08:45 61 03/15/24 07:58 36.7 C 71 16 150/78 H 99 Room Air 03/15/24 02:17 36.5 C 60 18 132/78 98 Room Air 03/14/24 23:57 69 Laboratory Results Laboratory Results - last 24 hr 03/14/24 03/14/24 03/14/24 10:37 12:25 12:30 PT INR APTT PTT Ratio D-Dimer Total Creatine Kinase Troponin I High Sens 8.0 Free T4 0.89 Urine Color Urine Appearance Urine pH Ur Specific Huggins Urine Protein Urine Glucose (UA) Urine Ketones Urine Blood Urine Nitrite Urine Bilirubin Urine Urobilinogen Ur Leukocyte Esterase Urine WBC (Auto) Urine RBC (Auto) U Hyaline Cast (Auto) U Epithel Cells (Auto) Urine Bacteria (Auto) Hyaline Casts Adenovirus (PCR) Not Detected B. pertussis DNA (PCR) Not Detected B.parapertussis DNA PCR Not Detected C. pneumoniae DNA (PCR) Not Detected Coronavirus OC43 (PCR) Not Detected Coronavirus HKU1 (PCR) Not Detected Coronavirus 229E (PCR) Not Detected SARS-CoV-2 (PCR) Not Detected Coronavirus NL63 (PCR) Not Detected Human Metapneumovir PCR Not Detected Influenza Type A (PCR) Not Detected Influenza Type B (PCR) Not Detected M. pneumoniae (PCR) Not Detected Parainfluenza 1 (PCR) Not Detected Parainfluenza 2 (PCR) Not Detected Parainfluenza 3 (PCR) Not Detected Parainfluenza 4 (PCR) Not Detected RSV (PCR) Not Detected Entero/Rhino (PCR) Not Detected 03/14/24 03/14/24 03/15/24 15:00 15:36 08:33 PT 11.1 INR 1.0 APTT 30 PTT Ratio 1.1 D-Dimer 520 H* Total Creatine Kinase 90 Troponin I High Sens 8.8 Free T4 Urine Color Yellow Urine Appearance Cloudy A Urine pH 8.5 H Ur Specific Huggins 1.013 Urine Protein Trace H Urine Glucose (UA) Negative Urine Ketones 1+ H Urine Blood Negative Urine Nitrite Negative Urine Bilirubin Negative Urine Urobilinogen Negative Ur Leukocyte Esterase Negative Urine WBC (Auto) 0-5 Urine RBC (Auto) 3-5 H U Hyaline Cast (Auto) 11-20 H U Epithel Cells (Auto) 0-2 Urine Bacteria (Auto) None Seen Hyaline Casts Present A Adenovirus (PCR) B. pertussis DNA (PCR) B.parapertussis DNA PCR C. pneumoniae DNA (PCR) Coronavirus OC43 (PCR) Coronavirus HKU1 (PCR) Coronavirus 229E (PCR) SARS-CoV-2 (PCR) Coronavirus NL63 (PCR) Human Metapneumovir PCR Influenza Type A (PCR) Influenza Type B (PCR) M. pneumoniae (PCR) Parainfluenza 1 (PCR) Parainfluenza 2 (PCR) Parainfluenza 3 (PCR) Parainfluenza 4 (PCR) RSV (PCR) Entero/Rhino (PCR) Diagnostic Findings Chest X-Ray 03/14/24 10:46 XR chest 1V portable HISTORY: 78 years-old Male Chest pain, nonspecific COMPARISON: 09/27/2012 TECHNIQUE: AP view of the chest FINDINGS: Cardiomediastinal and hilar silhouettes are within normal limits. Atherosclerosis of the aorta. No pneumothorax, pleural effusion or airspace consolidation. Spondylitic spurring of the spine. IMPRESSION: No acute process. ACT 112: Negative or not required by law. The above report was generated using voice recognition software. It may contain grammatical, syntax or spelling errors. Electronically signed by: Jarred Quintanilla M.D. 03/14/2024 12:[address] 03/14/24 12:35 CT head/brain wo con CLINICAL HISTORY: 78 years-old Male with syncope/fall. Acute head trauma TECHNIQUE: Multiple axial CT images of the head were obtained without contrast. A dose lowering technique was utilized adhering to the principles of ALARA. CT DOSE: 547.75 mGy.cm COMPARISON: None. FINDINGS: No acute intracranial hemorrhage, midline shift, intracranial mass, hydrocephalus, territorial ischemia or abnormal extra-axial collection. Involutional changes with probable mild chronic microvascular ischemic disease. The calvarium is intact. The paranasal sinuses, mastoid air cells, and middle ear cavities are clear. IMPRESSION: No acute intracranial abnormality or calvarial fracture. ACT 112: Negative or not required by law. The above report was generated using voice recognition software. It may contain grammatical, syntax or spelling errors. Electronically signed by: Jarred Quintanilla M.D. 03/14/2024 1:36 PM PG Care Time/CCT Total # of Minutes Spent Total Time Spent with Patient: Total time spent is greater than 50% in coordination of care (as documented) at patient's floor/unit and/or counseling patient: Coding Level of Care Code 83092 SUB INP/OBS CARE 3/50MIN Diagnoses Syncope, unspecified syncope type R55 Syncope type: unspecified History of aortic valvular stenosis Z86.79 Benign hypertension I10 Dyslipidemia E78.5 Hypothyroidism E03.9 Memory impairment of gradual onset R41.3 Benign localized prostatic hyperplasia with lower urinary tract symptoms (LUTS) N40.1 (1) Syncope Syncope type: unspecified Qualified Code(s): R55 - Syncope and collapse
[2024-03-15] MEDS: OPTIRAY 320 125ml IV ONE ×2 (12:14→22:00)
--- NOTE | 2024-03-15 12:34 | CT Scan Report ---
CT ANGIOGRAPHY OF THE CHEST, PULMONARY EMBOLUS PROTOCOL CLINICAL HISTORY: syncope, elevated d dimer ?PE COMPARISON STUDY: Chest radiograph March 14, 2024. TECHNIQUE: Following IV administration of 112 mL of Optiray, helical axial images of the chest were o btained utilizing the pulmonary embolus protocol. Maximal intensity projections and sagittal and cor onal reformats were viewed on an independent 3D workstation. IV contrast was administered without co mplication. Automated exposure control was utilized for the study. A dose lowering technique was ut ilized adhering to the principles of ALARA. CT DOSE: 518.71 mGy.cm FINDINGS: No pulmonary emboli are identified. There is no thoracic aortic dissection. There is no pe ricardial effusion. Moderate aortic valvular calcification is present. There is mild coronary calcifi cation. Prominent mediastinal and hilar lymph nodes are partially calcified. These are likely benign. There is no pneumothorax or pleural effusion. No consolidation to suggest pneumonia. Multiple scatte red calcified pulmonary nodules are benign. There are no suspicious pulmonary nodules. No acute rib o r thoracic spine fracture is identified. Visualized portions of the upper abdomen are unremarkable. IMPRESSION: 1. No pulmonary emboli identified. 2. No acute intrathoracic findings. 3. Evidence for a previous granulomatous process. ACT 112: Negative or not required by law. Electronically signed by: Deng Castaneda M.D. 03/15/2024 12:32 PM
--- NOTE | 2024-03-15 19:18 | XCELERA ---
[id number] \\[id number]
--- NOTE | 2024-03-15 22:02 | Communication Note ---
Date of Service: March 15, 2024 Stroke alert called 2129. Randall is a 78M w/ PMH of HTN, HLD, hypothyroidism, hyponatremia, BPH w/ LUTs, progressive memory impairment, aortic stenosis, and tremor. HPI: Patient presented for unwitnessed syncopal event, CT head negative on presentation. Orthostasis noted on vitals. CTA chest obtained d/t elevated d- dimer in setting of syncope, was negative 03/15. Echocardiogram w/ EF 55-60%, grade II diastolic dysfunction, and mild aortic stenosis. Nursing noted right sided upper and lower extremity weakness with pinpoint pupils and left facial droop. Patient denies symptoms, states he has no new concerns, denies cheat pain, dyspnea, headaches, vision changes, or difficulty speaking. Exam 2129: Pleasant, fluent speech w/o confusion. Heart RRR w/o MRG, lungs CTAB. Strength 5/5 in upper and lower extremities. No pronator drift. Unable to follow commands fully to complete CN exam, could not smile or hold air in cheeks. No obvious facial asymmetry. No tongue deviation. Pupils constricted bilaterally with minimal accommodation. Exam 2229: Pleasant, fluent speech w/o confusion, AO x 3+. Heart RRR w/o MRG, lungs CTAB. Strength 5/5 in upper and lower extremities. No pronator drift. CN II-XII intact, negative cerebellar testing. No obvious facial asymmetry. No tongue deviation. Pupils constricted bilaterally with full accommodation. Assessment/Plan: - CT Head/CTA Head/CTA Neck obtained - all w/o acute anomaly - CBC, CMP, PT/INR, Magnesium obtained - CT Head w/o acute abnormality per STAT Rad, though MRI Brain recommended d/t artifact if ongoing sx - Suspect patient groggy/disoriented from sleep when originally examined, known baseline dementia - Examination above not c/w stroke, though continue Q4h neuro checks, MRI Brain ordered routine given artifact on CT Scans - Patient followed in ICU for 2 hours then returned to med-telemetry Resident Activity Tracking Resident Involvement: Resident Care Provided Care Provided: [facility] Medicine
--- NOTE | 2024-03-15 22:35 | CT Scan Report ---
Exam(s): CT HEAD Without Contrast EXAM: CT Head Without Intravenous Contrast CLINICAL HISTORY: Reason for exam: new right weakness. TECHNIQUE: Axial computed tomography images of the head/brain without intravenous contrast. CTDI is 44 mGy and DLP is 774 mGy-cm. Automated exposure control was utilized for the study. A dose lowering technique was utilized adhering to the principles of ALARA. COMPARISON: CT brain: 03/14/2024 FINDINGS: Image diagnostic quality reduced due to motion artifact. Brain: Again noted a 1.2 cm rounded focal zone with decreased attenuation in the left basal ganglia/old infarct (series 4 image 98). There is no acute intracranial hemorrhage, mass-effect or midline shift. Reynoso-white matter differentiation is maintained. Moderate cortical atrophy with widening of the extra-axial spaces and ventricular dilatation. Areas of decreased attenuation within the white matter tracts, most likely from chronic microvascular disease. Bones/joints: Unremarkable. No acute fracture. Soft tissues: Unremarkable. Sinuses: Unremarkable as visualized. No acute sinusitis. Mastoid air cells: Unremarkable as visualized. No mastoid effusion. Other findings: . Atherosclerotic intracranial arteries. IMPRESSION: No definite acute intracranial abnormality noted. If there is continued clinical concern for an acute CVA, recommend brain MRI exam.. Chronic involutional and ischemic changes of the brain. Old lacunar infarct in the left basal ganglia Communications: Call Doctor Stroke Electronically signed by: Arleen Mendez MD, DABR 03/15/24 22:34 PM
--- NOTE | 2024-03-15 22:50 | CT Scan Report ---
Exam(s): CTA HEAD With Contrast IV Amt: 118 cc opti 320 EXAM: CT Angiography Head With Intravenous Contrast CLINICAL HISTORY: Reason for exam: new weakness, stroke alert. TECHNIQUE: Axial computed tomographic angiography images of the head with intravenous contrast. CTDI is 45 mGy and DLP is 774 mGy-cm. Automated exposure control was utilized for the study. A dose lowering technique was utilized adhering to the principles of ALARA. MIP reconstructed images were created and reviewed. CONTRAST: Patient received 118 cc opti 320 of IV contrast COMPARISON: No relevant prior studies available. FINDINGS: The dural venous sinuses are patent. Right internal carotid artery: No acute findings. Intracranial segment is patent with no significant stenosis. No aneurysm. Right anterior cerebral artery: Unremarkable. No occlusion or significant stenosis. No aneurysm. Right middle cerebral artery: Unremarkable. No occlusion or significant stenosis. No aneurysm. Right posterior cerebral artery: Unremarkable. No occlusion or significant stenosis. No aneurysm. Right vertebral artery: Unremarkable as visualized. Left internal carotid artery: No acute findings. Intracranial segment is patent with no significant stenosis. No aneurysm. Left anterior cerebral artery: Unremarkable. No occlusion or significant stenosis. No aneurysm. Left middle cerebral artery: Unremarkable. No occlusion or significant stenosis. No aneurysm. Left posterior cerebral artery: Unremarkable. No occlusion or significant stenosis. No aneurysm. Left vertebral artery: Unremarkable as visualized. Basilar artery: Unremarkable. No occlusion or significant stenosis. No aneurysm. IMPRESSION: Negative CT angiogram of the head. Communications: Verify Receipt Call Doctor Stroke Electronically signed by: Asia Cedeño MD 03/15/24 22:49 PM
--- NOTE | 2024-03-15 22:52 | CT Scan Report ---
Exam(s): CTA NECK With Contrast IV Amt: 118 cc opti 320 EXAM: CT Angiography Neck With Intravenous Contrast CLINICAL HISTORY: Reason for exam: new weakness, stroke alert. TECHNIQUE: Routine carotid CT angiography protocol was performed with intravenous contrast. NASCET criteria using the distal ICAs for comparison were used for evaluation of stenoses. CTDI is 45 mGy and DLP is 774 mGy-cm. Automated exposure control was utilized for the study. A dose lowering technique was utilized adhering to the principles of ALARA. MIP reconstructed images were created and reviewed. CONTRAST: Patient received 118 cc opti 320 of IV contrast COMPARISON: None. FINDINGS: VASCULATURE: Right common carotid artery: Unremarkable. No occlusion or significant stenosis. No dissection. Right internal carotid artery: Unremarkable. Extracranial segment is patent with no occlusion or significant stenosis. No dissection. Right external carotid artery: Unremarkable. No occlusion. Right vertebral artery: Unremarkable. No occlusion or significant stenosis. No dissection. Left common carotid artery: Unremarkable. No occlusion or significant stenosis. No dissection. Left internal carotid artery: Unremarkable. Extracranial segment is patent with no occlusion or significant stenosis. No dissection. Left external carotid artery: Unremarkable. No occlusion. Left vertebral artery: Unremarkable. No occlusion or significant stenosis. No dissection. NECK: Bones/joints: Unremarkable. No acute fracture. Soft tissues: Prominent mediastinal lymph nodes. Lung apices: Clear. CAROTID STENOSIS REFERENCE USING NASCET CRITERIA: % ICA stenosis = (1 - narrowest ICA diameter/diameter of distal cervical ICA) x 100. Mild - <50% stenosis. Moderate - 50-69% stenosis. Severe - 70-94% stenosis. Near occlusion - 95-99% stenosis. Occluded - 100% stenosis. IMPRESSION: Negative CTA neck. Communications: Verify Receipt Call Doctor Stroke Electronically signed by: Asia Cedeño MD 03/15/24 22:51 PM
[2024-03-15 22:54] LABS: Hematocrit (blood only) 39.9 % (42.0-52.0); Hemoglobin 13.6 g/dl (14.0-18.0); Mean Corpuscular Hemoglobin 31.3 pg (25.0-34.0); Mean Corpuscular Hgb Conc 34.1 g/dL (32.0-36.0); Mean Corpuscular Volume 91.7 fL (80.0-100.0); Mean Platelet Volume 9.9 fL (9.4-12.4); Platelet Count 243 K/uL (130-400); RDW Coefficient of Variation 13.2 % (11.5-14.5); RDW Standard Deviation 44.5 fL (36.4-46.3); Red Blood Count 4.35 M/uL (4.70-6.10); White Blood Count 8.93 K/ul (4.8-10.8)
[2024-03-15 23:09] LABS: Albumin Globulin Ratio 1.4 (0.9-2); Albumin Level 3.9 gm/dl (3.4-5.0); BUN Creatinine Ratio 18.8 (10-20); Bilirubin,Total 0.6 mg/dl (0.2-1.0); Calcium 8.8 mg/dl (8.6-10.3); Creatinine Clr Calc Pharmacy 60.4 ml/min; Globulin 2.8 gm/dl (2.5-4.0); Magnesium 1.9 mg/dl (1.7-2.4); Potassium 3.9 mmol/L (3.5-5.1); Total Protein 6.7 gm/dl (6.0-8.3)
[2024-03-15 23:23] LABS: Prothrombin Time 11.3 Seconds (9.0-12.0)
[2024-03-16 06:15] LABS: BUN Creatinine Ratio 18.9 (10-20); Calcium 8.9 mg/dl (8.6-10.3); Creatinine Clr Calc Pharmacy 64.4 ml/min; Magnesium 2.1 mg/dl (1.7-2.4); Potassium 3.7 mmol/L (3.5-5.1)
[2024-03-16 07:06] LABS: Estimated Average Glucose 108 mg/dl; Hemoglobin A1C 5.4 % (4.5-5.6)
[2024-03-16 07:47] VITALS: RESP 18
[2024-03-16] MEDS: ENOXAPARIN INJ 40 MG/0.4 ML SYR SQ SCH (07:54)
[2024-03-16] MEDS: ASPIRIN 81 MG ECTAB PO SCH (08:29)
[2024-03-16 08:45] LABS: Chol HDL Ratio 3.2 (0-5)
--- NOTE | 2024-03-16 09:24 | Magnetic Resonance Report ---
MRI OF THE BRAIN WITHOUT CONTRAST CLINICAL HISTORY: Syncopal episode. COMPARISON STUDY: MRI of the brain March 30, 2023. Head CT and CTA of the head March 15, 2024. TECHNIQUE: Utilizing a 1.5 Stephany magnet and dedicated coil, multiplanar, multiecho imaging of the bra in was performed without IV contrast. FINDINGS: There are no foci of restricted diffusion to suggest acute infarct. No acute intracranial h emorrhage, midline shift or mass effect is present. Mild ventricular dilatation is due to atrophy. Th is is unchanged since MRI of March 30, 2023. The appearance of the brain is unchanged. No intracran ial masses are identified on unenhanced exam. Mild white matter T2 hyperintense foci are unchanged si nce previous MRI and suggest mild small vessel disease. Calvarial signal is normal. There are no extr a-axial collections. Basal cisterns are patent. Prominent perivascular space within the left basal ga nglia is incidentally noted. IMPRESSION: 1. No acute intracranial findings. 2. No change in appearance of the brain since MRI of March 30, 2023. ACT 112: Negative or not required by law. Electronically signed by: Deng Castaneda M.D. 03/16/2024 9:21 AM
--- NOTE | 2024-03-16 12:06 | Hospitalist Progress Note ---
Date of Service March 16, 2024 Assessment & Plan (1) Syncope: (2) History of aortic valvular stenosis: (3) Benign hypertension: (4) Dyslipidemia: (5) Hypothyroidism: (6) Memory impairment of gradual onset: (7) Benign localized prostatic hyperplasia with lower urinary tract symptoms (LUTS): Plan 78-year-old male with past medical history of memory impairment, hypertension, hypothyroidism, BPH, aortic stenosis, hyperlipidemia presents to the ED after syncopal episode at home where he was found on the ground but does not member falling to the ground. He was found by his . #Syncope #Essential hypertension #Hyperlipidemia # Mild aortic stenosis #Mild mitral regurgitation Chest x-ray did not show any evidence of infection CT head was unremarkable EKG with no ischemic changes Troponin negative 2D echo showed left ventricular systolic function is normal, grade 2 diastolic dysfunction, the left atrium is mildly dilated, mild aortic stenosis, mild mitral regurgitation Orthostatic vital signs were checked this morning: Patient is orthostatic Continue orthostatic vital signs 3 times daily for now D-dimer was elevated: CT of the chest did not show any evidence of PE CT of the head, CTA of the head and neck, MRI of the brain were unremarkable for CVA Hold amlodipine 5 mg daily for now Reduce lisinopril to 5 mg daily with hold parameters for orthostatic vital signs Continue statin B12 683 Continue telemetry monitoring: So far no events noted PT consult #Hypothyroidism Outpatient assembler insulator is Dr. Moyer TSH is 11.715 Free T4 is 0.89 Continue levothyroxine 88 mcg daily Outpatient follow-up with assembler insulator Dr. Moyer to recheck outpatient TFTs and adjust medication doses #Memory impairment Continue Namenda and Aricept Supportive care from nursing staff #BPH Continue Proscar 5 mg p.o. daily and Flomax 0.4 mg p.o. nightly Flomax can also cause orthostatic hypotension Monitor vital signs CODE STATUS: Full code DVT prophylaxis: Continue Lovenox 40 mg subcutaneous daily Await PT consult for recommendations for discharge planning Discharge planning likely in the next 24 hours based on clinical improvement and PT recommendations I suspect patient may need home health for discharge: Spoke with case management in person Care plan discussed with patient, nursing staff, message left for patient's Kathryn Bailey ([phone]) on voicemail Admission and Anticipated Discharge Date Admission Date: March 14, 2024 Subjective Patient seen and examined Overnight events reviewed Labs and radiology reviewed with patient Patient had a stroke alert called: CTA of the head and neck and MRI of the brain were unremarkable Patient reports improvement in his dizziness. Blood pressure medications were held as he is still orthostatic He is awaiting physical therapy consult Denies any chest pain, shortness of breath, nausea, vomiting, diarrhea, Haroon pain Tolerating oral diet Physical Exam Physical Exam: General: No acute distress Psych: Awake and alert, oriented to place and person HEENT: Anicteric sclera, moist oral mucosa CVS: Regular rate and rhythm, systolic murmur audible Lungs: Bilateral air entry, no wheezing noted Abdomen: Soft, nontender, no rebound, no guarding Ext: No lower extremity edema, no calf tenderness Neuro: No focal motor deficits noted, able to move all 4 extremities Results & Data Results & Data Vital Signs (Past 12 Hours) Vital Signs Temp Pulse Pulse Resp BP Pulse Ox O2 Del Method 03/16/24 11:19 36.4 C L 71 18 124/70 97 Room Air 03/16/24 07:46 36.6 C 66 18 122/73 96 Room Air 03/16/24 07:15 58 L 03/16/24 02:28 36.5 C 67 16 135/69 98 Room Air 03/16/24 01:20 76 Laboratory Results Laboratory Results - last 24 hr 03/15/24 03/15/24 03/16/24 21:44 22:40 05:19 WBC 8.93 RBC 4.35 L Hgb 13.6 L Hct 39.9 L MCV 91.7 MCH 31.3 MCHC 34.1 RDW Std Deviation 44.5 RDW Coeff of Tiny 13.2 Plt Count 243 MPV 9.9 PT 11.3 INR 1.0 Sodium 126 L 128 L Potassium 3.9 3.7 Chloride 95 L 97 L Carbon Dioxide 24 25 Anion Gap 7 6 BUN 18 17 Creatinine 0.96 0.90 Est Cr Clr Drug Dosing 60.4 64.4 eGFR 80.40 86.88 BUN/Creatinine Ratio 18.8 18.9 Glucose 94 89 POC Glucose 96 Estimat Average Glucose 108 Hemoglobin A1c 5.4 Calcium 8.8 8.9 Magnesium 1.9 2.1 Total Bilirubin 0.6 AST 25 ALT 12 Alkaline Phosphatase 44 Total Protein 6.7 Albumin 3.9 Globulin 2.8 Albumin/Globulin Ratio 1.4 Triglycerides 55 Cholesterol 158 LDL Cholesterol, Calc 97 VLDL Cholesterol, Calc 11 HDL Cholesterol 50 Cholesterol/HDL Ratio 3.2 Vitamin B12 683 Diagnostic Findings Chest CTA 03/15/24 11:49 CT ANGIOGRAPHY OF THE CHEST, PULMONARY EMBOLUS PROTOCOL CLINICAL HISTORY: syncope, elevated d dimer ?PE COMPARISON STUDY: Chest radiograph March 14, 2024. TECHNIQUE: Following IV administration of 112 mL of Optiray, helical axial images of the chest were obtained utilizing the pulmonary embolus protocol. Maximal intensity projections and sagittal and coronal reformats were viewed on an independent 3D workstation. IV contrast was administered without complication. Automated exposure control was utilized for the study. A dose lowering technique was utilized adhering to the principles of ALARA. CT DOSE: 518.71 mGy.cm FINDINGS: No pulmonary emboli are identified. There is no thoracic aortic dissection. There is no pericardial effusion. Moderate aortic valvular calcification is present. There is mild coronary calcification. Prominent mediastinal and hilar lymph nodes are partially calcified. These are likely benign. There is no pneumothorax or pleural effusion. No consolidation to suggest pneumonia. Multiple scattered calcified pulmonary nodules are benign. There are no suspicious pulmonary nodules. No acute rib or thoracic spine fracture is identified. Visualized portions of the upper abdomen are unremarkable. IMPRESSION: 1. No pulmonary emboli identified. 2. No acute intrathoracic findings. 3. Evidence for a previous granulomatous process. ACT 112: Negative or not required by law. Electronically signed by: Deng Castaneda M.D. 03/15/2024 12:32 PM Brain MRI 03/15/24 21:49 MRI OF THE BRAIN WITHOUT CONTRAST CLINICAL HISTORY: Syncopal episode. COMPARISON STUDY: MRI of the brain March 30, 2023. Head CT and CTA of the head March 15, 2024. TECHNIQUE: Utilizing a 1.5 Stephany magnet and dedicated coil, multiplanar, multiecho imaging of the brain was performed without IV contrast. FINDINGS: There are no foci of restricted diffusion to suggest acute infarct. No acute intracranial hemorrhage, midline shift or mass effect is present. Mild ventricular dilatation is due to atrophy. This is unchanged since MRI of March 30, 2023. The appearance of the brain is unchanged. No intracranial masses are identified on unenhanced exam. Mild white matter T2 hyperintense foci are unc hanged since previous MRI and suggest mild small vessel disease. Calvarial signal is normal. There are no extra-axial collections. Basal cisterns are patent. Prominent perivascular space within the left basal ganglia is incidentally noted. IMPRESSION: 1. No acute intracranial findings. 2. No change in appearance of the brain since MRI of March 30, 2023. ACT 112: Negative or not required by law. Electronically signed by: Deng Castaneda M.D. 03/16/2024 9:[address] 03/15/24 21:49 CR Exam(s): CT HEAD Without Contrast EXAM: CT Head Without Intravenous Contrast CLINICAL HISTORY: Reason for exam: new right weakness. TECHNIQUE: Axial computed tomography images of the head/brain without intravenous contrast. CTDI is 44 mGy and DLP is 774 mGy-cm. Automated exposure control was utilized for the study. A dose lowering technique was utilized adhering to the principles of ALARA. COMPARISON: CT brain: 03/14/2024 FINDINGS: Image diagnostic quality reduced due to motion artifact. Brain: Again noted a 1.2 cm rounded focal zone with decreased attenuation in the left basal ganglia/old infarct (series 4 image 98). There is no acute intracranial hemorrhage, mass-effect or midline shift. Reynoso-white matter differentiation is maintained. Moderate cortical atrophy with widening of the extra-axial spaces and ventricular dilatation. Areas of decreased attenuation within the white matter tracts, most likely from chronic microvascular disease. Bones/joints: Unremarkable. No acute fracture. Soft tissues: Unremarkable. Sinuses: Unremarkable as visualized. No acute sinusitis. Mastoid air cells: Unremarkable as visualized. No mastoid effusion. Other findings: . Atherosclerotic intracranial arteries. IMPRESSION: No definite acute intracranial abnormality noted. If there is continued clinical concern for an acute CVA, recommend brain MRI exam.. Chronic involutional and ischemic changes of the brain. Old lacunar infarct in the left basal ganglia Communications: Call Doctor Stroke Electronically signed by: Arleen Mendez MD, DABR 03/15/24 22:34 PM Head CTA 03/15/24 21:49 CR Exam(s): CTA HEAD With Contrast IV Amt: 118 cc opti 320 EXAM: CT Angiography Head With Intravenous Contrast CLINICAL HISTORY: Reason for exam: new weakness, stroke alert. TECHNIQUE: Axial computed tomographic angiography images of the head with intravenous contrast. CTDI is 45 mGy and DLP is 774 mGy-cm. Automated exposure control was utilized for the study. A dose lowering technique was utilized adhering to the principles of ALARA. MIP reconstructed images were created and reviewed. CONTRAST: Patient received 118 cc opti 320 of IV contrast COMPARISON: No relevant prior studies available. FINDINGS: The dural venous sinuses are patent. Right internal carotid artery: No acute findings. Intracranial segment is patent with no significant stenosis. No aneurysm. Right anterior cerebral artery: Unremarkable. No occlusion or significant stenosis. No aneurysm. Right middle cerebral artery: Unremarkable. No occlusion or significant stenosis. No aneurysm. Right posterior cerebral artery: Unremarkable. No occlusion or significant stenosis. No aneurysm. Right vertebral artery: Unremarkable as visualized. Left internal carotid artery: No acute findings. Intracranial segment is patent with no significant stenosis. No aneurysm. Left anterior cerebral artery: Unremarkable. No occlusion or significant stenosis. No aneurysm. Left middle cerebral artery: Unremarkable. No occlusion or significant stenosis. No aneurysm. Left posterior cerebral artery: Unremarkable. No occlusion or significant stenosis. No aneurysm. Left vertebral artery: Unremarkable as visualized. Basilar artery: Unremarkable. No occlusion or significant stenosis. No aneurysm. IMPRESSION: Negative CT angiogram of the head. Communications: Verify Receipt Call Doctor Stroke Electronically signed by: Asia Cedeño MD 03/15/24 22:49 PM Neck CTA 03/15/24 21:49 CR Exam(s): CTA NECK With Contrast IV Amt: 118 cc opti 320 EXAM: CT Angiography Neck With Intravenous Contrast CLINICAL HISTORY: Reason for exam: new weakness, stroke alert. TECHNIQUE: Routine carotid CT angiography protocol was performed with intravenous contrast. NASCET criteria using the distal ICAs for comparison were used for evaluation of stenoses. CTDI is 45 mGy and DLP is 774 mGy-cm. Automated exposure control was utilized for the study. A dose lowering technique was utilized adhering to the principles of ALARA. MIP reconstructed images were created and reviewed. CONTRAST: Patient received 118 cc opti 320 of IV contrast COMPARISON: None. FINDINGS: VASCULATURE: Right common carotid artery: Unremarkable. No occlusion or significant stenosis. No dissection. Right internal carotid artery: Unremarkable. Extracranial segment is patent with no occlusion or significant stenosis. No dissection. Right external carotid artery: Unremarkable. No occlusion. Right vertebral artery: Unremarkable. No occlusion or significant stenosis. No dissection. Left common carotid artery: Unremarkable. No occlusion or significant stenosis. No dissection. Left internal carotid artery: Unremarkable. Extracranial segment is patent with no occlusion or significant stenosis. No dissection. Left external carotid artery: Unremarkable. No occlusion. Left vertebral artery: Unremarkable. No occlusion or significant stenosis. No dissection. NECK: Bones/joints: Unremarkable. No acute fracture. Soft tissues: Prominent mediastinal lymph nodes. Lung apices: Clear. CAROTID STENOSIS REFERENCE USING NASCET CRITERIA: % ICA stenosis = (1 - narrowest ICA diameter/diameter of distal cervical ICA) x 100. Mild - <50% stenosis. Moderate - 50-69% stenosis. Severe - 70-94% stenosis. Near occlusion - 95-99% stenosis. Occluded - 100% stenosis. IMPRESSION: Negative CTA neck. Communications: Verify Receipt Call Doctor Stroke Electronically signed by: Asia Cedeño MD 03/15/24 22:51 PM PG Care Time/CCT Total # of Minutes Spent Total Time Spent with Patient: Total time spent is greater than 50% in coordination of care (as documented) at patient's floor/unit and/or counseling patient: Coding Level of Care Code 36630 SUB INP/OBS CARE 3/50MIN Diagnoses Syncope, unspecified syncope type R55 Syncope type: unspecified History of aortic valvular stenosis Z86.79 Benign hypertension I10 Dyslipidemia E78.5 Hypothyroidism E03.9 Memory impairment of gradual onset R41.3 Benign localized prostatic hyperplasia with lower urinary tract symptoms (LUTS) N40.1 (1) Syncope Syncope type: unspecified Qualified Code(s): R55 - Syncope and collapse
--- NOTE | 2024-03-16 14:11 | Electrocardiogram Report ---
Test Reason : Blood Pressure : */* mmHG Vent. Rate : 77 BPM Atrial Rate : 77 BPM P-R Int : 164 ms QRS Dur : 90 ms QT Int : 394 ms P-R-T Axes : 72 59 56 degrees QTcB Int : 445 ms Normal sinus rhythm Normal ECG When compared with ECG of 14-Mar-2024 12:30, Nonspecific T wave abnormality no longer evident in Anterior leads Confirmed by Nando Naik ([id number]) on 03/16/2024 2:10:40 PM Referred By: REFERRED SELF Confirmed By: Nando Naik
[2024-03-17] MEDS ORDERED: lisinopril 5 MG TAB PO SCH (09:00)
--- NOTE | 2024-03-17 10:45 | Hospitalist Progress Note ---
Date of Service March 17, 2024 Assessment & Plan (1) Syncope: (2) History of aortic valvular stenosis: (3) Benign hypertension: (4) Dyslipidemia: (5) Hypothyroidism: (6) Memory impairment of gradual onset: (7) Benign localized prostatic hyperplasia with lower urinary tract symptoms (LUTS): Plan 78-year-old male with past medical history of memory impairment, hypertension, hypothyroidism, BPH, aortic stenosis, hyperlipidemia presents to the ED after syncopal episode at home where he was found on the ground but does not member falling to the ground. He was found by his . #Syncope #Essential hypertension #Hyperlipidemia # Mild aortic stenosis #Mild mitral regurgitation Chest x-ray did not show any evidence of infection CT head was unremarkable EKG with no ischemic changes Troponin negative 2D echo showed left ventricular systolic function is normal, grade 2 diastolic dysfunction, the left atrium is mildly dilated, mild aortic stenosis, mild mitral regurgitation Orthostatic vital signs were checked this morning: Patient is orthostatic Continue orthostatic vital signs 3 times daily for now D-dimer was elevated: CT of the chest did not show any evidence of PE CT of the head, CTA of the head and neck, MRI of the brain were unremarkable for CVA Hold amlodipine 5 mg daily for now Reduce lisinopril to 5 mg daily with hold parameters for orthostatic vital signs Continue statin B12 683 Continue telemetry monitoring: So far no events noted PT consult #Hypothyroidism Outpatient spot welder line is Dr. Moyer TSH is 11.715 Free T4 is 0.89 Continue levothyroxine 88 mcg daily Outpatient follow-up with spot welder line Dr. Moyer to recheck outpatient TFTs and adjust medication doses #Memory impairment Continue Namenda and Aricept Supportive care from nursing staff #BPH Continue Proscar 5 mg p.o. daily and Flomax 0.4 mg p.o. nightly Flomax can also cause orthostatic hypotension Monitor vital signs CODE STATUS: Full code DVT prophylaxis: Continue Lovenox 40 mg subcutaneous daily Await PT consult for recommendations for discharge planning Discharge planning likely in the next 24 hours based on clinical improvement and PT recommendations I suspect patient may need home health for discharge: Spoke with case management in person Care plan discussed with patient, nursing staff, message left for patient's Kathryn Bailey ([phone]) on voicemail Admission and Anticipated Discharge Date Admission Date: March 16, 2024 Physical Exam Physical Exam: General: No acute distress Psych: Awake and alert, oriented to place and person HEENT: Anicteric sclera, moist oral mucosa CVS: Regular rate and rhythm, systolic murmur audible Lungs: Bilateral air entry, no wheezing noted Abdomen: Soft, nontender, no rebound, no guarding Ext: No lower extremity edema, no calf tenderness Neuro: No focal motor deficits noted, able to move all 4 extremities Results & Data Results & Data Vital Signs (Past 12 Hours) Vital Signs Temp Pulse Pulse Resp BP Pulse Ox O2 Del Method 03/17/24 08:15 Room Air 03/17/24 07:50 36.5 C 71 18 151/90 H 98 Room Air 03/17/24 07:00 60 03/17/24 03:32 36.4 C L 58 L 18 120/69 98 Room Air 03/17/24 00:07 62 PG Care Time/CCT Total # of Minutes Spent Total Time Spent with Patient: Total time spent is greater than 50% in coordination of care (as documented) at patient's floor/unit and/or counseling patient: Coding Diagnoses Syncope, unspecified syncope type R55 Syncope type: unspecified History of aortic valvular stenosis Z86.79 Benign hypertension I10 Dyslipidemia E78.5 Hypothyroidism E03.9 Memory impairment of gradual onset R41.3 Benign localized prostatic hyperplasia with lower urinary tract symptoms (LUTS) N40.1 (1) Syncope Syncope type: unspecified Qualified Code(s): R55 - Syncope and collapse
[2024-03-17 11:35] VITALS: BP 138/75; TEMP 97.5; O2SAT 95
[2024-03-17 12:20] LABS: BUN Creatinine Ratio 20.5 (10-20); Blood Urea Nitrogen 17 mg/dl (6-23); Calcium 8.9 mg/dl (8.6-10.3); Carbon Dioxide 27 mmol/L (21-32); Chloride 95 mmol/L (98-107); Creatinine Clr Calc Pharmacy 69.8 ml/min; Glucose 96 mg/dl (70-99(Fasting))
[2024-03-17 13:14] LABS: Potassium 4.2 mmol/L (3.5-5.1)
[2024-03-17 14:48] VITALS: PULSE 56
--- NOTE | 2024-03-17 14:54 | Discharge Summary ---
Discharge Summary Date of Service March 17, 2024 Principal Dx & Hospital Course #1 = Principal Diagnosis (1) Syncope: (2) History of aortic valvular stenosis: (3) Benign hypertension: (4) Dyslipidemia: (5) Hypothyroidism: (6) Memory impairment of gradual onset: (7) Benign localized prostatic hyperplasia with lower urinary tract symptoms (LUTS): Plan 78-year-old male with past medical history of memory impairment, hypertension, hypothyroidism, BPH, aortic stenosis, hyperlipidemia presents to the ED after syncopal episode at home where he was found on the ground but does not member falling to the ground. He was found by his . #Syncope #Essential hypertension #Hyperlipidemia # Mild aortic stenosis #Mild mitral regurgitation Chest x-ray did not show any evidence of infection CT head was unremarkable EKG with no ischemic changes Troponin negative 2D echo showed left ventricular systolic function is normal, grade 2 diastolic dysfunction, the left atrium is mildly dilated, mild aortic stenosis, mild mitral regurgitation Orthostatic vital signs were checked this morning: Patient is orthostatic with a systolic blood pressure being 151 lying down and then on standing 815. Patient denies any dizziness or lightheadedness D-dimer was elevated: CT of the chest did not show any evidence of PE CT of the head, CTA of the head and neck, MRI of the brain were unremarkable for CVA Amlodipine and lisinopril have been stopped He will need monitoring of his orthostatic vital signs and if his standing blood pressure is elevated greater than 150 on more than 2 occasions in would recommend follow-up with PCP for initiation of low-dose lisinopril 5 mg daily Patient also has aortic stenosis and would benefit from his systolic blood pressure running in the 140s to avoid hypotension Continue statin B12 683 No telemetry events were noted on telemetry monitoring Outpatient follow-up with PCP #Hypothyroidism Outpatient corporate safety manager is Dr. Moyer TSH is 11.715 Free T4 is 0.89 Continue levothyroxine 88 mcg daily Outpatient follow-up with corporate safety manager Dr. Moyer to recheck outpatient TFTs and adjust medication doses #Memory impairment/dementia Continue Namenda and Aricept #BPH Continue Proscar 5 mg p.o. daily and Flomax 0.4 mg p.o. nightly Flomax can also cause orthostatic hypotension #Hyponatremia Patient is at his baseline mentation Regular diet, regular salt in diet Outpatient follow-up with PCP for repeat blood test in 1 week Patient seen and examined today. He denies any chest pain, shortness of breath, dizziness or lightheadedness. He is ambulating with a walker. I have gone over the discharge care plan with the patient and his Kathryn Bailey who is at the bedside in great detail and answered all the questions Patient and are in agreement with home health: Did [id number] assessment with patient and his regarding home health This discharge to greater than 30 minutes to coordinate Admission HPI Per Admitting Provider Randall Bailey is a 78 year old male who presents to the ER following a syncopal event earlier today. He is unsure exactly what happened. He was at a countertop in his kitchen. He felt fine prior to the event but does not remember falling to the ground. No lightheadedness, shortness of breath or chest pain prior to falling. He woke up on the floor and was found by his . No postictal phase. No seizure-like activity noticed by his . He is currently feeling back to his normal self. Discharge Exam General: No acute distress Psych: Awake and alert, oriented to place and person HEENT: Anicteric sclera, moist oral mucosa CVS: Regular rate and rhythm, systolic murmur audible Lungs: Bilateral air entry, no wheezing noted Abdomen: Soft, nontender, no rebound, no guarding Ext: No lower extremity edema, no calf tenderness Neuro: No focal motor deficits noted, able to move all 4 extremities Discharge Plan Discharge Items Patient Disposition: Home - Home Health Services Reason For Visit: SYNCOPE Discharge Diagnosis: #Syncope #Essential hypertension #Hyperlipidemia # Mild aortic stenosis #Mild mitral regurgitation #Hypothyroidism #Memory impairment/dementia #BPH #Hyponatremia Condition on Discharge: Fair Activity: As commented below Activity Comment: As tolerated with assistance Driving/Machine Use: No driving Non-emergency contact: Primary Care Provider Call non-emergency contact if: you have any medication questions, your symptoms worsen and you have a fever Follow-up/Referrals: Pacnho Moyer MD [Physician] - Gigi Smiley DO [Primary Care Provider] - 03/25/24 12:00 pm Diet: Regular Addtl Attending Provider Instructions: DISCHARGE INSTRUCTION TO PATIENT/FAMILY: Follow-up with your primary care provider within 1 week regarding: Posthospital discharge, medication review, medication refills and follow-up on all your medical problems, blood pressure monitoring and orthostatic vital sign monitoring Please take all your discharge medications, discharge information and discharge instructions to all your doctors appointments. Avoid all NSAIDs including ibuprofen, Motrin, Advil, Aleve, naproxen, meloxicam, Toradol, diclofenac You were admitted for syncope: You had a thorough workup done. The reason for syncope is your blood pressure drops when you stand up. I have stopped your blood pressure medications currently. Please check your blood pressure readings at home lying down, sitting and standing up. Your true blood pressure is your blood pressure reading standing up. If you are standing blood pressure readings are greater than 150 on more than 2 readings, please follow-up with your PCP for resuming blood pressure medication at low-dose. Your TSH level is elevated 11.715. Please follow-up with your outpatient corporate safety manager Dr. Moyer for repeat thyroid function check and adjustment of medications as outpatient. Labs through PCP in 1 week: CBC, CMP, mag, vitamin D Pending Studies at Discharge: No Stand-Alone Forms: My [facility] [employer], Smoking Cessation Medications and DC Order Prescriptions: Continued cholecalciferol (vitamin D3) 400 unit capsule 800 units PO BID Qty: 30 0RF nystatin 100,000 unit/gram powder 1 applic TOP TID PRN (Reason: Jock itch) Qty: 60 11RF ketoconazole 2 % cream 1 applic topical BID PRN (Reason: jock itch) Qty: 60 11RF simvastatin 20 mg tablet 20 mg PO QPM Qty: 90 3RF Suflave 178.7-7.3-0.5 gram recon soln See Rx Instructions PO .COMPLEX Qty: 2 0RF Rx Instructions: orally; TAKE FIRST DOSE AT 6 PM AND SECOND DOSE 6 HOURS PRIOR TO PROCEDURE BIN: [id number] PCN: [id number] GROUP: [id number] psyllium husk [Metamucil] 0.4 gram capsule 0.4 g PO QDL Rx Instructions: Unable to verify OTC med at this date/time. memantine 10 mg tablet 10 mg PO BID Qty: 180 3RF fluticasone propionate [Flonase Allergy Relief] 50 mcg/actuation spray,suspension 2 spray intranasal DAILY PRN (Reason: Congestion) Rx Instructions: Unable to verify OTC med at this date/time. calcium carbonate [Calcium 600] 600 mg calcium (1,500 mg) tablet 600 mg PO BID multivitamin tablet 1 tab PO DAILY diclofenac sodium [Arthritis Pain (diclofenac)] 1 % gel 2 g topical QID Qty: 100 5RF Rx Instructions: Unable to verify OTC med at this date/time. Apply to single elbow, wrist or hand; for hand includes palm/fingers/back of hand donepezil 5 mg tablet 5 mg PO QAM levothyroxine 88 mcg tablet 88 mcg PO QAM tamsulosin 0.4 mg capsule 0.4 mg PO HS Rx Instructions: Take 30 minutes after a meal finasteride 5 mg tablet 5 mg PO QAM Discontinued amlodipine 5 mg tablet 5 mg PO QAM Rx Instructions: TAKE 1 TABLET EVERY MORNING lisinopril 10 mg tablet 10 mg PO QAM Discharge Orders: Discharge Order (Routine); Ordered 03/17/24 Ordered By: John Mcmahon Admission Data Admit Date/Time: 03/16/24 08:24 Attending Provider: John Mcmahon Admit Provider: Gurwinder Beckham Primary Care Provider: Gigi Smiley Other Providers: Gruwinder Beckham Hospital Stay Data Consultations 03/14/24 13:30 ED Decision to Admit Stat Diagnostic Imagining Performed 03/14/24 12:35 CT head/brain wo con Stat 03/15/24 11:49 CT angio chest PE protocol Stat 03/15/24 21:49 CT angio head w con Stat CT angio neck with con Stat CT head/brain wo con Stat MRI Brain [MR brain wo con] Routine Chest X-Ray 03/14/24 10:46 XR chest 1V portable HISTORY: 78 years-old Male Chest pain, nonspecific COMPARISON: 09/27/2012 TECHNIQUE: AP view of the chest FINDINGS: Cardiomediastinal and hilar silhouettes are within normal limits. Atherosclerosis of the aorta. No pneumothorax, pleural effusion or airspace consolidation. Spondylitic spurring of the spine. IMPRESSION: No acute process. ACT 112: Negative or not required by law. The above report was generated using voice recognition software. It may contain grammatical, syntax or spelling errors. Electronically signed by: Jarred Quintanilla M.D. 03/14/2024 12:[address] 03/14/24 12:35 CT head/brain wo con CLINICAL HISTORY: 78 years-old Male with syncope/fall. Acute head trauma TECHNIQUE: Multiple axial CT images of the head were obtained without contrast. A dose lowering technique was utilized adhering to the principles of ALARA. CT DOSE: 547.75 mGy.cm COMPARISON: None. FINDINGS: No acute intracranial hemorrhage, midline shift, intracranial mass, hydrocephalus, territorial ischemia or abnormal extra-axial collection. Involutional changes with probable mild chronic microvascular ischemic disease. The calvarium is intact. The paranasal sinuses, mastoid air cells, and middle ear cavities are clear. IMPRESSION: No acute intracranial abnormality or calvarial fracture. ACT 112: Negative or not required by law. The above report was generated using voice recognition software. It may contain grammatical, syntax or spelling errors. Electronically signed by: Jarred Quintanilla M.D. 03/14/2024 1:36 PM Chest CTA 03/15/24 11:49 CT ANGIOGRAPHY OF THE CHEST, PULMONARY EMBOLUS PROTOCOL CLINICAL HISTORY: syncope, elevated d dimer ?PE COMPARISON STUDY: Chest radiograph March 14, 2024. TECHNIQUE: Following IV administration of 112 mL of Optiray, helical axial images of the chest were obtained utilizing the pulmonary embolus protocol. Maximal intensity projections and sagittal and coronal reformats were viewed on an independent 3D workstation. IV contrast was administered without complication. Automated exposure control was utilized for the study. A dose lowering technique was utilized adhering to the principles of ALARA. CT DOSE: 518.71 mGy.cm FINDINGS: No pulmonary emboli are identified. There is no thoracic aortic dissection. There is no pericardial effusion. Moderate aortic valvular calcification is present. There is mild coronary calcification. Prominent mediastinal and hilar lymph nodes are partially calcified. These are likely benign. There is no pneumothorax or pleural effusion. No consolidation to suggest pneumonia. Multiple scattered calcified pulmonary nodules are benign. There are no suspicious pulmonary nodules. No acute rib or thoracic spine fracture is identified. Visualized portions of the upper abdomen are unremarkable. IMPRESSION: 1. No pulmonary emboli identified. 2. No acute intrathoracic findings. 3. Evidence for a previous granulomatous process. ACT 112: Negative or not required by law. Electronically signed by: Deng Castaneda M.D. 03/15/2024 12:32 PM Brain MRI 03/15/24 21:49 MRI OF THE BRAIN WITHOUT CONTRAST CLINICAL HISTORY: Syncopal episode. COMPARISON STUDY: MRI of the brain March 30, 2023. Head CT and CTA of the head March 15, 2024. TECHNIQUE: Utilizing a 1.5 Stehpany magnet and dedicated coil, multiplanar, multiecho imaging of the brain was performed without IV contrast. FINDINGS: There are no foci of restricted diffusion to suggest acute infarct. No acute intracranial hemorrhage, midline shift or mass effect is present. Mild ventricular dilatation is due to atrophy. This is unchanged since MRI of March 30, 2023. The appearance of the brain is unchanged. No intracranial masses are identified on unenhanced exam. Mild white matter T2 hyperintense foci are unchanged since previous MRI and suggest mild small vessel disease. Calvarial signal is normal. There are no extra-axial collections. Basal cisterns are patent. Prominent perivascular space within the left basal ganglia is incidentally noted. IMPRESSION: 1. No acute intracranial findings. 2. No change in appearance of the brain since MRI of March 30, 2023. ACT 112: Negative or not required by law. Electronically signed by: Deng Castaneda M.D. 03/16/2024 9:[address] 03/15/24 21:49 CR Exam(s): CT HEAD Without Contrast EXAM: CT Head Without Intravenous Contrast CLINICAL HISTORY: Reason for exam: new right weakness. TECHNIQUE: Axial computed tomography images of the head/brain without intravenous contrast. CTDI is 44 mGy and DLP is 774 mGy-cm. Automated exposure control was utilized for the study. A dose lowering technique was utilized adhering to the principles of ALARA. COMPARISON: CT brain: 03/14/2024 FINDINGS: Image diagnostic quality reduced due to motion artifact. Brain: Again noted a 1.2 cm rounded focal zone with decreased attenuation in the left basal ganglia/old infarct (series 4 image 98). There is no acute intracranial hemorrhage, mass-effect or midline shift. Reynoso-white matter differentiation is maintained. Moderate cortical atrophy with widening of the extra-axial spaces and ventricular dilatation. Areas of decreased attenuation within the white matter tracts, most likely from chronic microvascular disease. Bones/joints: Unremarkable. No acute fracture. Soft tissues: Unremarkable. Sinuses: Unremarkable as visualized. No acute sinusitis. Mastoid air cells: Unremarkable as visualized. No mastoid effusion. Other findings: . Atherosclerotic intracranial arteries. IMPRESSION: No definite acute intracranial abnormality noted. If there is continued clinical concern for an acute CVA, recommend brain MRI exam.. Chronic involutional and ischemic changes of the brain. Old lacunar infarct in the left basal ganglia Communications: Call Doctor Stroke Electronically signed by: Arleen Mendez MD, DABR 03/15/24 22:34 PM Head CTA 03/15/24 21:49 CR Exam(s): CTA HEAD With Contrast IV Amt: 118 cc opti 320 EXAM: CT Angiography Head With Intravenous Contrast CLINICAL HISTORY: Reason for exam: new weakness, stroke alert. TECHNIQUE: Axial computed tomographic angiography images of the head with intravenous contrast. CTDI is 45 mGy and DLP is 774 mGy-cm. Automated exposure control was utilized for the study. A dose lowering technique was utilized adhering to the principles of ALARA. MIP reconstructed images were created and reviewed. CONTRAST: Patient received 118 cc opti 320 of IV contrast COMPARISON: No relevant prior studies available. FINDINGS: The dural venous sinuses are patent. Right internal carotid artery: No acute findings. Intracranial segment is patent with no significant stenosis. No aneurysm. Right anterior cerebral artery: Unremarkable. No occlusion or significant stenosis. No aneurysm. Right middle cerebral artery: Unremarkable. No occlusion or significant stenosis. No aneurysm. Right posterior cerebral artery: Unremarkable. No occlusion or significant stenosis. No aneurysm. Right vertebral artery: Unremarkable as visualized. Left internal carotid artery: No acute findings. Intracranial segment is patent with no significant stenosis. No aneurysm. Left anterior cerebral artery: Unremarkable. No occlusion or significant stenosis. No aneurysm. Left middle cerebral artery: Unremarkable. No occlusion or significant stenosis. No aneurysm. Left posterior cerebral artery: Unremarkable. No occlusion or significant stenosis. No aneurysm. Left vertebral artery: Unremarkable as visualized. Basilar artery: Unremarkable. No occlusion or significant stenosis. No aneurysm. IMPRESSION: Negative CT angiogram of the head. Communications: Verify Receipt Call Doctor Stroke Electronically signed by: Asia Cedeño MD 03/15/24 22:49 PM Neck CTA 03/15/24 21:49 CR Exam(s): CTA NECK With Contrast IV Amt: 118 cc opti 320 EXAM: CT Angiography Neck With Intravenous Contrast CLINICAL HISTORY: Reason for exam: new weakness, stroke alert. TECHNIQUE: Routine carotid CT angiography protocol was performed with intravenous contrast. NASCET criteria using the distal ICAs for comparison were used for evaluation of stenoses. CTDI is 45 mGy and DLP is 774 mGy-cm. Automated exposure control was utilized for the study. A dose lowering technique was utilized adhering to the principles of ALARA. MIP reconstructed images were created and reviewed. CONTRAST: Patient received 118 cc opti 320 of IV contrast COMPARISON: None. FINDINGS: VASCULATURE: Right common carotid artery: Unremarkable. No occlusion or significant stenosis. No dissection. Right internal carotid artery: Unremarkable. Extracranial segment is patent with no occlusion or significant stenosis. No dissection. Right external carotid artery: Unremarkable. No occlusion. Right vertebral artery: Unremarkable. No occlusion or significant stenosis. No dissection. Left common carotid artery: Unremarkable. No occlusion or significant stenosis. No dissection. Left internal carotid artery: Unremarkable. Extracranial segment is patent with no occlusion or significant stenosis. No dissection. Left external carotid artery: Unremarkable. No occlusion. Left vertebral artery: Unremarkable. No occlusion or significant stenosis. No dissection. NECK: Bones/joints: Unremarkable. No acute fracture. Soft tissues: Prominent mediastinal lymph nodes. Lung apices: Clear. CAROTID STENOSIS REFERENCE USING NASCET CRITERIA: % ICA stenosis = (1 - narrowest ICA diameter/diameter of distal cervical ICA) x 100. Mild - <50% stenosis. Moderate - 50-69% stenosis. Severe - 70-94% stenosis. Near occlusion - 95-99% stenosis. Occluded - 100% stenosis. IMPRESSION: Negative CTA neck. Communications: Verify Receipt Call Doctor Stroke Electronically signed by: Asia Cedeño MD 03/15/24 22:51 PM Laboratory Results - last 48 hr 03/15/24 03/15/24 03/16/24 21:44 22:40 05:19 WBC 8.93 RBC 4.35 L Hgb 13.6 L Hct 39.9 L MCV 91.7 MCH 31.3 MCHC 34.1 RDW Std Deviation 44.5 RDW Coeff of Tiny 13.2 Plt Count 243 MPV 9.9 PT 11.3 INR 1.0 Sodium 126 L 128 L Potassium 3.9 3.7 Chloride 95 L 97 L Carbon Dioxide 24 25 Anion Gap 7 6 BUN 18 17 Creatinine 0.96 0.90 Est Cr Clr Drug Dosing 60.4 64.4 eGFR 80.40 86.88 BUN/Creatinine Ratio 18.8 18.9 Glucose 94 89 POC Glucose 96 Estimat Average Glucose 108 Hemoglobin A1c 5.4 Calcium 8.8 8.9 Magnesium 1.9 2.1 Total Bilirubin 0.6 AST 25 ALT 12 Alkaline Phosphatase 44 Total Protein 6.7 Albumin 3.9 Globulin 2.8 Albumin/Globulin Ratio 1.4 Triglycerides 55 Cholesterol 158 LDL Cholesterol, Calc 97 VLDL Cholesterol, Calc 11 HDL Cholesterol 50 Cholesterol/HDL Ratio 3.2 Vitamin B12 683 03/17/24 03/17/24 10:52 12:30 WBC RBC Hgb Hct MCV MCH MCHC RDW Std Deviation RDW Coeff of Tiny Plt Count MPV PT INR Sodium TNP 127 L Potassium TNP 4.2 Chloride 95 L Carbon Dioxide 27 Anion Gap TNP BUN 17 Creatinine 0.83 Est Cr Clr Drug Dosing 69.8 eGFR 89.03 BUN/Creatinine Ratio 20.5 H Glucose 96 POC Glucose Estimat Average Glucose Hemoglobin A1c Calcium 8.9 Magnesium TNP 2.0 Total Bilirubin AST ALT Alkaline Phosphatase Total Protein Albumin Globulin Albumin/Globulin Ratio Triglycerides Cholesterol LDL Cholesterol, Calc VLDL Cholesterol, Calc HDL Cholesterol Cholesterol/HDL Ratio Vitamin B12 03/17/24 03/17/24 Pending Results Patient Have Any Pending Studies at Discharge: No Discharge Instructions Given to Patient (Per Discharging Provider) DISCHARGE INSTRUCTION TO PATIENT/FAMILY: Follow-up with your primary care provider within 1 week regarding: Posthospital discharge, medication review, medication refills and follow-up on all your medical problems, blood pressure monitoring and orthostatic vital sign monitoring Please take all your discharge medications, discharge information and discharge instructions to all your doctors appointments. Avoid all NSAIDs including ibuprofen, Motrin, Advil, Aleve, naproxen, meloxicam, Toradol, diclofenac You were admitted for syncope: You had a thorough workup done. The reason for syncope is your blood pressure drops when you stand up. I have stopped your blood pressure medications currently. Please check your blood pressure readings at home lying down, sitting and standing up. Your true blood pressure is your blood pressure reading standing up. If you are standing blood pressure readings are greater than 150 on more than 2 readings, please follow-up with your PCP for resuming blood pressure medication at low-dose. Your TSH level is elevated 11.715. Please follow-up with your outpatient corporate safety manager Dr. Moyer for repeat thyroid function check and adjustment of medications as outpatient. Labs through PCP in 1 week: CBC, CMP, mag, vitamin D Total Time Total Time Spent Total Time Spent (In Minutes): 40 minutes Total Time Includes: Examination of the Patient, Discharge Planning, Medication Reconciliation and Other Coding Level of Care Code 57560 INP/OBS DISCH >30 MIN Diagnoses Syncope, unspecified syncope type R55 Syncope type: unspecified History of aortic valvular stenosis Z86.79 Benign hypertension I10 Dyslipidemia E78.5 Hypothyroidism E03.9 Memory impairment of gradual onset R41.3 Benign localized prostatic hyperplasia with lower urinary tract symptoms (LUTS) N40.1 Home Health Attestation I certify that this patient is under my care and that I, or a physicians podiatric assistant working with me, had a face to-face encounter that meets the home health [id number] encounter requirements with this patient. The encounter with the patient was in whole, or in part, for the following medical condition, which is the primary reason for home health care (list medical condition): syncope, orthostatic hypotension, dementia, hypothyroidism, BPH I certify that, based on my findings, the following services are medically necessary home health services: PT/OT/nursing: Orthostatic blood pressure monitoring, home safety evaluation My clinical findings support the need for the above services because: OT Assess ADL Status and Restore Function w ADLs PT Assessment for Endurance / Balance / Strength PT Eval for Safety and Mobility PT Eval for Safety, Gait Training, Assistive Devices PT Gait and Balance Training, Strengthening and Safety Skilled Nsg Assessment Skilled Nsg Instruction New Medications Further, I certify that my clinical findings support that this patient is homebound (i.e. absences from home require considerable and taxing effort and are for medical reasons or confucianism services or infrequently or of short duration when for other reasons) because: Transportation Assistance/Unable to Leave Home Unassisted Certification for Home Health Services: Based on the above findings, I certify that this patient is confined to the home and needs intermittent alf care, physical therapy and/or speech therapy or continues to need occupational therapy. The patient is under my care, and I have initiated the establishment of the plan of care. This patient will be followed by a physician who will periodically review the plan of care.
== END 2024-03-17 15:25 | disposition home health service (06) | DRG 312 ==
LOC: 2N 10:23 → ED 10:23 → SUATTDRO 14:11 → 2N 16:09

== ENCOUNTER 2024-06-07 12:32 | Inpatient (IN) ==
--- NOTE | 2024-06-07 12:48 | Emergency Department Note ---
Impression & Plan Influenza A Admission ED Provider Note HPI: History obtained from patient. The patient is a 78-year-old gentleman with history of memory impairment, hearing loss, aortic valve stenosis, who presents the emergency department with a chief complaint of fall. Patient was also noted to have a fever on arrival at 38 C, patient is a poor historian, he states he fell earlier today "slowly". Patient states that he believes he fell on his buttocks. He otherwise does not provide any details in regards to the fall. Patient states that he does think he had fevers over the past several days but "nothing to get excited about". On arrival here to the ED the patient is otherwise hemodynamically stable, he appears to be in no acute distress. Patient does ambulate all extremity spontaneously on arrival without issue. ROS: - Per HPI Differential Diagnosis: Viral upper respiratory infection to include COVID-19, influenza A, urinary tract infection, pneumonia, intracranial injury to include subdural hematoma, epidural hematoma, amongst other potential pathologies. *Outpatient medications and allergy history reviewed. PE: General: Alert, frail-appearing, no acute distress HEENT: Normocephalic, trachea midline Eyes: Extraocular eye movement is intact, no scleral erythema Pulmonary: Clear to auscultation bilaterally, no wheezing Cardio: Regular rate and rhythm GI: Abdomen is soft to palpation : No suprapubic tenderness MSK: No evidence of trauma or malformation of the extremities, no edema Skin: No evidence of rash Neuro: Alert, no focal deficits Psychiatric: Cooperative INDEPENDENT INTERPRETATIONS: supervisor elementary education: (As interpreted by myself): - An order was placed for continuous cardiac monitoring - Patient was noted to be in sinus rhythm with a rate of 85 EKG: (As interpreted by myself): Rate: 83 Rhythm: Sinus rhythm Intervals: Within normal limits ST changes: No ST elevation Time: 1240 Chest x-ray: (As interpreted by myself): No acute disease Interventions provided in ED: -IV fluid bolus Medical Decision Making: IV was established and lab work obtained, patient was placed on brain picker. Blood cultures were drawn in the ED given the patient's presenting fever. Lab work shows no leukocytosis, hemoglobin is normal, platelet count is normal, CMP shows a mild hyponatremia 130, otherwise no acute findings are noted. Troponin is negative. EKG shows sinus rhythm without any acute ischemic changes. Viral panel testing was obtained and the patient's positive for influenza A. I suspect this is the source of his weakness, generalized fatigue and illness, and fever. CT imaging of the head was obtained and is negative. Urinalysis shows 2+ ketones and 1+ blood but no evidence of any obvious infection. On my reassessment the patient remained stable, his daughter is now at the bedside. She states that the patient lives at home with his and she is unable to take care of him at home. He frequently misses his medications and he has not been eating and drinking very well. They are requesting the patient be admitted and they would like consideration for long-term placement or inpatient PT. [facility] hospitalist service was consulted for admission and the patient was placed for admission in stable condition. Consultants/Discussions held with other healthcare providers: -Hospitalist, Dr. Vasquez Disposition discussion held by myself with: -Patient's daughter at the bedside. Diagnosis: 1. Influenza A infection, acute 2. Fever, acute 3. Ambulatory dysfunction with mechanical fall, acute 4. History of cognitive impairment/memory impairment 5. Inability to care for self at home 6. 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 Allergic rhinitis Vitamin D deficiency Benign localized prostatic hyperplasia with lower urinary tract symptoms (LUTS) Hearing loss History of squamous cell carcinoma in situ Hyponatremia Murmur Tinea cruris Osteoporosis Hypothyroidism Dyslipidemia Benign hypertension Medical History Hearing loss Memory impairment of gradual onset HTN (hypertension) Dyslipidemia Hypothyroidism Murmur Tremor Osteoporosis BPH (benign prostatic hyperplasia) Cyclic citrullinated peptide (CCP) antibody positive Surgical History History of colonoscopy History of tooth extraction History of squamous cell carcinoma excision Hx of hernia repair Hx of adenoidectomy Hx of tonsillectomy Family History Grandfather (Paternal) Colorectal cancer Father Myocardial infarction Mother Cancer Denies family history of Ovarian cancer Prostate cancer Breast cancer Social History Smoking Status: Never smoker Second Hand Exposure: No; Do You Dip or Chew Tobacco: No; Hx Alcohol Use: No Hx Substance Use: No Preferred Language: Armenian Communication Ability: Effective Visual Impairment: Limited Hearing Ability: Normal Security Installation Sales Technician Required: No Beliefs That Will Affect Care: None marital status: Current Living Situation: Spouse current occupational status: retired How many Children do You have: 1 Feels Safe at Home: Yes Childhood Exposure to Second-Hand Smoke: Yes Diet: regular caffeine: No during the past year weight has: remained stable Dental Care, Regularly: Yes Physical Activity Frequency: 3-4 Times per Week Seatbelt Use: always Sunscreen Use: Yes Assistive Devices: None Allergies Allergies Allergy/AdvReac Type Severity Reaction Status Date / Time azithromycin [From Zithromax] Allergy Unknown Unknown Verified 05/14/24 13:22 ciprofloxacin AdvReac Mild Diarrhea Verified 05/14/24 13:22 codeine AdvReac Mild Hallucinati Verified 05/14/24 13:22 ng Home Meds Home Medications Medication Instructions Recorded Confirmed multivitamin 1 tab PO DAILY 02/25/19 05/14/24 donepezil 5 mg tablet 5 mg PO QAM 03/11/24 05/14/24 finasteride 5 mg tablet 5 mg PO QAM 03/11/24 05/14/24 levothyroxine 88 mcg tablet 88 mcg PO QAM 03/11/24 05/14/24 tamsulosin 0.4 mg capsule 0.4 mg PO HS 03/11/24 05/14/24 Previous Rx's Medication Instructions Recorded cholecalciferol (vitamin D3) 10 800 units PO BID #30 caps 04/04/19 mcg (400 unit) capsule diclofenac sodium 1 % topical gel 2 g topical QID #100 grams 12/01/21 (Arthritis Pain (diclofenac)) simvastatin 20 mg tablet 20 mg PO QPM #90 tabs 07/11/23 memantine 10 mg tablet 10 mg PO BID #180 tabs 09/21/23 peg [id number] See Rx Instructions PO .COMPLEX #2 03/07/24 178.7-7.3-0.5-1.12-0.9 gram oral mL soln (Suflave) calcium citrate 600 mg (2.4 x 250 mg calcium) PO 04/28/24 DAILY #30 tabs lisinopril 20 mg tablet 20 mg PO DAILY #90 tabs 05/14/24 Results & Data (ED) Vital Signs Vital Signs - 24 hr 06/07/24 12:44 06/07/24 13:53 06/07/24 14:43 Temperature 38 C H Temperature Source Oral Pulse Rate 85 85 Pulse Rate [Apical] 81 Pulse Strength [Apical] Normal Respiratory Rate 18 17 Respiratory Effort / Characteristics Non-Labored Spontaneous Non-Labored Spontaneous Respiratory Depth Normal Normal Respiratory Pattern Regular Regular Blood Pressure 158/90 H Blood Pressure [Right Arm] 162/99 H Blood Pressure Mean 112 Blood Pressure Mean [Right Arm] 120 Pulse Oximetry 96 94 Oxygen Delivery Method Room Air Room Air Sepsis Recent Fever Within 48 Hours No Sepsis New/Unexplained Change in Mental Status N/A Sepsis Action Taken by Nursing No Action Required 06/07/24 14:44 06/07/24 14:44 Temperature 37.6 C H Temperature Source Oral Pulse Rate Pulse Rate [Apical] 82 Pulse Strength [Apical] Normal Respiratory Rate 18 Respiratory Effort / Characteristics Non-Labored Spontaneous Respiratory Depth Normal Respiratory Pattern Regular Blood Pressure Blood Pressure [Right Arm] 162/99 H Blood Pressure Mean Blood Pressure Mean [Right Arm] 120 Pulse Oximetry 94 94 Oxygen Delivery Method Room Air Room Air Sepsis Recent Fever Within 48 Hours Sepsis New/Unexplained Change in Mental Status Sepsis Action Taken by Nursing Laboratory Data 06/07/24 12:55 06/07/24 12:55 Lab Results 06/07/24 06/07/24 06/07/24 Range/Units 12:50 12:55 14:42 WBC 8.75 (4.8-10.8) K/ul RBC 4.54 L (4.70-6.10) M/uL Hgb 14.4 (14.0-18.0) g/dl Hct 41.3 L (42.0-52.0) % MCV 91.0 (80.0-100.0) fL MCH 31.7 (25.0-34.0) pg MCHC 34.9 (32.0-36.0) g/dL RDW Std Deviation 43.2 (36.4-46.3) fL RDW Coeff of Tiny 13.0 (11.5-14.5) % Plt Count 215 (130-400) K/uL MPV 9.9 (9.4-12.4) fL Immature Gran % (Auto) 0.5 % Neut % (Auto) 84.7 % Lymph % (Auto) 3.1 % Wilcox % (Auto) 11.0 % Eos % (Auto) 0.5 % Baso % (Auto) 0.2 % Neut # (Auto) 7.42 H (1.40-6.50) K/uL Lymph # (Auto) 0.27 L (1.20-3.40) K/uL Wilcox # (Auto) 0.96 H (0.11-0.59) K/uL Eos # (Auto) 0.04 (0.00-0.50) K/uL Baso # (Auto) 0.02 (0.00-0.20) K/uL Immature Gran # (Auto) 0.04 (0.01-0.20) K/uL PT 11.6 (9.0-12.0) Seconds INR 1.1 (0.9-1.1) APTT 31 (21-31) Seconds PTT Ratio 1.2 Sodium 130 L (136-145) mmol/L Potassium 4.3 (3.5-5.1) mmol/L Chloride 97 L (98-107) mmol/L Carbon Dioxide 26 (21-32) mmol/L Anion Gap 7 (3-11) BUN 20 (6-23) mg/dl Creatinine 0.84 (0.6-1.4) mg/dl Est Cr Clr Drug Dosing 66.7 ml/min eGFR 88.71 BUN/Creatinine Ratio 23.8 H (10-20) Glucose 92 (70-99(Fasting)) mg/dl Lactate 1.1 (0.4-2.0) mmol/L Calcium 9.0 (8.6-10.3) mg/dl Magnesium 2.0 (1.7-2.4) mg/dl Total Bilirubin 0.4 (0.2-1.0) mg/dl Direct Bilirubin 0.0 (0-0.2) mg/dl AST 32 (13-39) U/L ALT 15 (7-52) U/L Alkaline Phosphatase 51 (34-104) U/L Troponin I High Sens 18.2 (0-20) pg/ml Total Protein 7.2 (6.0-8.3) gm/dl Albumin 4.0 (3.4-5.0) gm/dl Procalcitonin 0.06 (0-0.5) ng/ml Urine Color Yellow Urine Appearance Clear (Clear) Urine pH 5.5 (4.5-7.5) Ur Specific [place] 1.023 (1.000-1.030) Urine Protein 1+ H (Negative) Urine Glucose (UA) Negative (Negative) Urine Ketones 2+ H (Negative) Urine Blood 1+ H (Negative) Urine Nitrite Negative (Negative) Urine Bilirubin Negative (Negative) Urine Urobilinogen Negative (Negative) Ur Leukocyte Esterase Negative (Negative) Urine WBC (Auto) 0-5 (0-5) /hpf Urine RBC (Auto) 0-2 (0-2) /hpf U Hyaline Cast (Auto) 0-2 (0-2) /lpf U Epithel Cells (Auto) 0-2 (0-2) /hpf Urine Bacteria (Auto) None Seen (None Seen) Adenovirus (PCR) Not Detected (NotDetected) B. pertussis DNA (PCR) Not Detected (NotDetected) B.parapertussis DNA PCR Not Detected (NotDetected) C. pneumoniae DNA (PCR) Not Detected (NotDetected) Coronavirus OC43 (PCR) Not Detected (NotDetected) Coronavirus HKU1 (PCR) Not Detected (NotDetected) Coronavirus 229E (PCR) Not Detected (NotDetected) SARS-CoV-2 (PCR) Not Detected (NotDetected) Coronavirus NL63 (PCR) Not Detected (NotDetected) Human Metapneumovir PCR Not Detected (NotDetected) Influenza A (H3) PCR DETECTED A (NotDetected) Influenza Type B (PCR) Not Detected (NotDetected) M. pneumoniae (PCR) Not Detected (NotDetected) Parainfluenza 1 (PCR) Not Detected (NotDetected) Parainfluenza 2 (PCR) Not Detected (NotDetected) Parainfluenza 3 (PCR) Not Detected (NotDetected) Parainfluenza 4 (PCR) Not Detected (NotDetected) RSV (PCR) Not Detected (NotDetected) Entero/Rhino (PCR) Not Detected (NotDetected) Administered Medications Discontinued Medications Sodium Chloride (Nss) 1,000 mls @ 999 mls/hr IV .Q1H1M ONE Stop: 06/07/24 13:45 Last Infusion: 06/07/24 14:59 Dose: Infused Documented By: Admin: 06/07/24 13:38 Dose: 999 mls/hr Documented By: [facility] Imaging Data Radiologist's Impression: Chest X-Ray 06/07/24 12:44 XR chest 1V portable CLINICAL HISTORY: Sepsis TECHNIQUE: Single frontal radiograph of the chest was obtained. Comparison: Comparison is made to chest radiograph 03/14/2024 FINDINGS: No lines and tubes are seen. Calcified aortic knob is seen. The lungs are clear. No evidence of pleural effusion or pneumothorax. IMPRESSION: No acute abnormalities and in particular no radiographic evidence of pneumonia. ACT 112: Negative or not required by law. Electronically signed by: Diaz Guerra M.D. 06/07/2024 2:[address] 06/07/24 12:46 INDICATION: Headache. COMPARISON: CT from 03/15/2024. TECHNIQUE: Axial CT images of the head were obtained without IV contrast. Coronal and sagittal reformations were reviewed. FINDINGS: Reynoso-white differentiation is relatively preserved. No mass, mass effect or midline shift. Mild chronic ischemic white matter changes. No evidence of acute large territorial infarction or acute intracranial hemorrhage. Ventricles appear normal in size. Basal cisterns are patent. No depressed calvarial fracture. IMPRESSION: No acute intracranial process. Electronically signed by Elan Velasco 06-07-2024 2:57 PM Discharge Plan Visit Data Chief Complaint: Fall ED Provider: Sharan Baumann Discharge Problem: Influenza A Forms Stand Alone Forms: My [facility] Prescriptions Prescriptions: No Action cholecalciferol (vitamin D3) 400 unit capsule 800 units PO BID Qty: 30 0RF simvastatin 20 mg tablet 20 mg PO QPM Qty: 90 3RF Suflave 178.7-7.3-0.5 gram recon soln See Rx Instructions PO .COMPLEX Qty: 2 0RF Rx Instructions: orally; TAKE FIRST DOSE AT 6 PM AND SECOND DOSE 6 HOURS PRIOR TO PROCEDURE BIN: [id number] N: 2000 GROUP: [id number] memantine 10 mg tablet 10 mg PO BID Qty: 180 3RF multivitamin tablet 1 tab PO DAILY diclofenac sodium [Arthritis Pain (diclofenac)] 1 % gel 2 g topical QID Qty: 100 5RF Rx Instructions: Unable to verify OTC med at this date/time. Apply to single elbow, wrist or hand; for hand includes palm/fingers/back of hand lisinopril 20 mg tablet 20 mg PO DAILY Qty: 90 3RF calcium citrate 250 mg calcium tablet 600 mg PO DAILY Qty: 30 0RF donepezil 5 mg tablet 5 mg PO QAM levothyroxine 88 mcg tablet 88 mcg PO QAM tamsulosin 0.4 mg capsule 0.4 mg PO HS Rx Instructions: Take 30 minutes after a meal finasteride 5 mg tablet 5 mg PO QAM Referrals Referrals: Gigi Smiley DO [Primary Care Provider] -
[2024-06-07 13:16] LABS: Basophils # (auto) 0.02 K/uL (0.00-0.20); Basophils % (auto) 0.2 %; Eosinophils # (auto) 0.04 K/uL (0.00-0.50); Eosinophils % (auto) 0.5 %; Hematocrit (blood only) 41.3 % (42.0-52.0); Hemoglobin 14.4 g/dl (14.0-18.0); Immature Granulocytes # (auto) 0.04 K/uL (0.01-0.20); Immature Granulocytes % (auto) 0.5 %; Lymphocytes # (auto) 0.27 K/uL (1.20-3.40); Lymphocytes % (auto) 3.1 %; Mean Corpuscular Hemoglobin 31.7 pg (25.0-34.0); Mean Corpuscular Hgb Conc 34.9 g/dL (32.0-36.0); Mean Platelet Volume 9.9 fL (9.4-12.4); Monocytes # (auto) 0.96 K/uL (0.11-0.59); Neutrophils # (auto) 7.42 K/uL (1.40-6.50); Neutrophils % (auto) 84.7 %; Platelet Count 215 K/uL (130-400); RDW Standard Deviation 43.2 fL (36.4-46.3); Red Blood Count 4.54 M/uL (4.70-6.10); White Blood Count 8.75 K/ul (4.8-10.8)
[2024-06-07 13:30] LABS: BUN Creatinine Ratio 23.8 (10-20); Bilirubin,Total 0.4 mg/dl (0.2-1.0); Creatinine Clr Calc Pharmacy 66.7 ml/min; Potassium 4.3 mmol/L (3.5-5.1); Total Protein 7.2 gm/dl (6.0-8.3)
[2024-06-07 13:36] LABS: Troponin I High Sensitivity 18.2 pg/ml (0-20)
[2024-06-07] MEDS: SODIUM CHLORIDE 0.9% 1,000 ML IV ONE (13:38)
[2024-06-07 13:44] LABS: INR 1.1 (0.9-1.1); Partial Thromboplastin Ratio 1.2; Partial Thromboplastin Time 31 Seconds (21-31); Prothrombin Time 11.6 Seconds (9.0-12.0)
--- NOTE | 2024-06-07 14:03 | XRay Report ---
XR chest 1V portable CLINICAL HISTORY: Sepsis TECHNIQUE: Single frontal radiograph of the chest was obtained. Comparison: Comparison is made to chest radiograph 03/14/2024 FINDINGS: No lines and tubes are seen. Calcified aortic knob is seen. The lungs are clear. No evidence of pleur al effusion or pneumothorax. IMPRESSION: No acute abnormalities and in particular no radiographic evidence of pneumonia. ACT 112: Negative or not required by law. Electronically signed by: Diaz Guerra M.D. 06/07/2024 2:01 PM
[2024-06-07 14:52] LABS: Adenovirus PCR Not Detected (NotDetected); Bordetella parapertussis PCR Not Detected (NotDetected); Bordetella pertussis PCR Not Detected (NotDetected); Chlamydia pneumoniae PCR Not Detected (NotDetected); Coronavirus 229E PCR Not Detected (NotDetected); Coronavirus CoV-2 (COVID19)PCR Not Detected (NotDetected); Coronavirus HKU1 PCR Not Detected (NotDetected); Coronavirus NL63 PCR Not Detected (NotDetected); Coronavirus OC43PCR Not Detected (NotDetected); Human Metapneumovirus PCR Not Detected (NotDetected); Influenza A (H3) PCR DETECTED (NotDetected); Influenza B PCR Not Detected (NotDetected); Mycoplasma pneumoniae PCR Not Detected (NotDetected); Parainfluenza Virus 1 PCR Not Detected (NotDetected); Parainfluenza Virus 2 PCR Not Detected (NotDetected); Parainfluenza Virus 3 PCR Not Detected (NotDetected); Parainfluenza Virus 4 PCR Not Detected (NotDetected); Respiratory Syncytial VirusPCR Not Detected (NotDetected); Rhinovirus/Enterovirus PCR Not Detected (NotDetected)
--- NOTE | 2024-06-07 14:57 | CT Scan Report ---
INDICATION: Headache. COMPARISON: CT from 03/15/2024. TECHNIQUE: Axial CT images of the head were obtained without IV contrast. Coronal and sagittal reformations were reviewed. FINDINGS: Reynoso-white differentiation is relatively preserved. No mass, mass effect or midline shift. Mild chronic ischemic white matter changes. No evidence of acute large territorial infarction or acute intracranial hemorrhage. Ventricles appear normal in size. Basal cisterns are patent. No depressed calvarial fracture. IMPRESSION: No acute intracranial process. Electronically signed by Elan Velasco 06-07-2024 2:57 PM
[2024-06-07 15:02] LABS: Appearance Urine Clear (Clear); Bacteria Urine Automated None Seen (None Seen); Bilirubin Urine Negative (Negative); Blood Urine 1+ (Negative); Cast Urine Automated 0-2 /lpf (0-2); Color Urine Yellow; Epithelial Cell Urine Auto 0-2 /hpf (0-2); Glucose Urine UA Negative (Negative); Ketones Urine 2+ (Negative); Leukocyte Esterase Urine Negative (Negative); Nitrite Urine Negative (Negative); Protein Urine 1+ (Negative); RBC Urine Automated 0-2 /hpf (0-2); Specific Gravity Urine 1.023 (1.000-1.030); Urobilinogen Urine Negative (Negative); WBC Urine Automated 0-5 /hpf (0-5); pH Urine 5.5 (4.5-7.5)
[2024-06-07] MEDS: OSELTAMIVIR PHOSPHATE 75 MG CAP PO STA (15:47)
--- NOTE | 2024-06-07 16:50 | History & Physical Report ---
Date of Service June 07, 2024 Assessment & Plan (1) Influenza A: (2) Recurrent falls: Plan 78-year-old male PMHx aortic stenosis, BPH, hypothyroidism, HTN, dyslipidemia, and OP who presents to ED for recurrent falls. Noted to have fever upon arrival, influenza A positive. Patient is a poor historian; States that this morning, he was walking to the bathroom when he had a little bit of dizziness and felt weak so he fell to the ground. States that he slowly went down and caught himself on his hands and knees. Family reports many more falls over the past few weeks, almost daily, and unsafe living environment at home between the patient and his ; unable to care for self. #Influenza A/Fever Influenza A diagnosed on admission, CXR negative for pneumonia; Pt w/o current complaints of URI symptoms, abdominal pain, N/V/D/C. States that he is cold, and reported to have fever upon arrival to ED. Has been having increase in falls over the past few weeks, with at least 2 the morning of arrival. Pt concerned for patient's safety and instability. Suspect that influenza has exacerbated symptoms to some degree. Hemodynamically stable; Received 1 dose Tamiflu in ED. - Admit med/sx - CBC grossly WNL without leukocytosis/leukopenia - CXR w/o acute findings; Head CT w/o acute findings - Tamiflu daily, renally dosed; Acetaminophen prn #Recurrent falls Ongoing falls x months, per family. Pt denies symptoms prior to falls and no pain. Family states the pt was complaining of back pain after sliding down stairs ~ 4 days ago then patient admits that he has some back pain. No tenderness to palpation of spine, some tenderness to palpation mid-lower paraspinal muscles, no areas of ecchymosis or open wounds. - Pain management + Kpad to back, prn - H/o OP but w/o spinal tenderness to palpation--> CT back ordered of thoracic and lumbar spine - PT/OT consult placed - Case management consulted #Hyponatremia Likely secondary to poor oral intake over the past few days, family states that the patient does not eat or drink enough, sometimes not even having an entire meal per day. Received 1L NSS in ED. - Asymptomatic, clinically euvolemic. - Na 130, no hypoglycemia - UA w/o signs of infection; Pending Serum osmol, Urine Na, Urine Osmol - Promote oral hydration - BMP am #BPH- Bladder scan prn; Finasteride, tamsulosin #Hypothyroidism- Levothyroxine #HTN- Lisinopril #Dementia- Donepezil, memantine #HLD- Simvastatin Dispo: Admit VTE Prophylaxis: Lovenox This document was dictated utilizing [employer]. Please excuse any grammatical errors that may be secondary to use of this software. Admission and Anticipated Discharge Date Admission Date: 06/07/2024 History of Present Illness Chief Complaint: Falls, ambulatory dysfunction Primary Care Provider: iGgi Smiley DO 78-year-old male PMHx aortic stenosis, BPH, hypothyroidism, HTN, dyslipidemia, and OP who presents to ED for recurrent falls. Noted to have fever upon arrival. Patient is a poor historian, only able to provide some history, mainly answer yes and no to questions or going off topic. States that this morning, he was walking to the bathroom when he had a little bit of dizziness and felt weak so he fell to the ground. States that he slowly went down and caught himself on his hands and knees. Not complaining of any current pain. States that he did not have chest pain, shortness of breath, or palpitations prior to the event. Overall, states he is feeling well. Denying chest pain, shortness of breath, palpitations, abdominal pain, N/V/D/C, or URI symptoms. Was found to be flu A positive on exam, otherwise labs are fairly unremarkable except for mild hyponatremia and UA with evidence of dehydration. Patient's family is in the room at the time of visit and helps provide additional history aside from the patient. States that there is concern for his increased falls, as he had 2 on the day of arrival, and multiple on the days before. Approximately 4 days prior to arrival, patient had a fall on the steps in which he landed on his back and had been complaining of back pain. The patient did not relay this information to me, but the family states that he has been complaining of at home. Additionally, there is concerns that the patient is not taking his medications as they are prescribed. He and his live alone in a home and have been have a difficult time taking care of themselves. Family informs me that the house is unclean and that there is not even enough room within the house that the patient can use a walker, so he just walks without assistance and then ends up falling. Has not hit his head throughout these falls that they are aware of. There have been episodes where he has tripped over the dog, and been unable to get up. The patient's family is very concerned about the safety of the patient and his ambulatory dysfunction given that he is fallen multiple times per day over the past few months. Unsure the patient took his a.m. medications. Please see Dr. Vasquez's attestation for adjustments/additions to treatment plan. Allergies Allergy/AdvReac Type Severity Reaction Status Date / Time azithromycin [From Zithromax] Allergy Unknown Unknown Verified 05/14/24 13:22 ciprofloxacin AdvReac Mild Diarrhea Verified 05/14/24 13:22 codeine AdvReac Mild Hallucinati Verified 05/14/24 13:22 ng Home Medications Medication Instructions Recorded Confirmed Type multivitamin 1 tab PO DAILY 02/25/19 06/07/24 History cholecalciferol (vitamin D3) 10 800 units PO BID #30 caps 04/04/19 06/07/24 Rx mcg (400 unit) capsule diclofenac sodium 1 % topical gel 2 g topical QID #100 grams 12/01/21 06/07/24 Rx (Arthritis Pain (diclofenac)) simvastatin 20 mg tablet 20 mg PO QPM #90 tabs 07/11/23 06/07/24 Rx memantine 10 mg tablet 10 mg PO BID #180 tabs 09/21/23 06/07/24 Rx peg 3350-sod [id number] See Rx Instructions PO .COMPLEX #2 03/07/24 06/07/24 Rx 178.7-7.3-0.5-1.12-0.9 gram oral mL soln (Suflave) donepezil 5 mg tablet 5 mg PO QAM 03/11/24 06/07/24 History finasteride 5 mg tablet 5 mg PO QAM 03/11/24 06/07/24 History levothyroxine 88 mcg tablet 88 mcg PO QAM 03/11/24 06/07/24 History tamsulosin 0.4 mg capsule 0.4 mg PO HS 03/11/24 06/07/24 History calcium citrate 600 mg (2.4 x 250 mg calcium) PO 04/28/24 06/07/24 Rx DAILY #30 tabs lisinopril 20 mg tablet 20 mg PO DAILY #90 tabs 05/14/24 06/07/24 Rx Past Med/Surg History Problem List (Updated 06/07/24 @ 17:29 by Sami Madrid PA-C) Recurrent falls Influenza A (Acute) Diaphoresis (Acute) History of aortic valvular stenosis (Acute) Syncope (Acute) Tremor Memory impairment of gradual onset Arthritis of both hands Allergic rhinitis Vitamin D deficiency Benign localized prostatic hyperplasia with lower urinary tract symptoms (LUTS) Hearing loss History of squamous cell carcinoma in situ Hyponatremia Murmur Tinea cruris Osteoporosis Hypothyroidism Dyslipidemia Benign hypertension Medical History Hearing loss Memory impairment of gradual onset HTN (hypertension) Dyslipidemia Hypothyroidism Murmur pt unaware Tremor Osteoporosis BPH (benign prostatic hyperplasia) Cyclic citrullinated peptide (CCP) antibody positive Surgical History History of colonoscopy History of tooth extraction History of squamous cell carcinoma excision Hx of hernia repair Hx of adenoidectomy Hx of tonsillectomy Family History Grandfather (Paternal) Colorectal cancer Father Myocardial infarction Mother Cancer Denies family history of Ovarian cancer Prostate cancer Breast cancer Social History Smoking Status: Never smoker Second Hand Exposure: No; Do You Dip or Chew Tobacco: No; Hx Alcohol Use: No Hx Substance Use: No Preferred Language: Marshallese Communication Ability: Effective Visual Impairment: Limited Hearing Ability: Normal Director Of Nursing Required: No Beliefs That Will Affect Care: None marital status: Current Living Situation: Spouse current occupational status: retired How many Children do You have: 1 Feels Safe at Home: Yes Childhood Exposure to Second-Hand Smoke: Yes Diet: regular caffeine: No during the past year weight has: remained stable Dental Care, Regularly: Yes Physical Activity Frequency: 3-4 Times per Week Seatbelt Use: always Sunscreen Use: Yes Assistive Devices: None Review of Systems Review of Systems: All systems reviewed & are unremarkable except as noted in Subjective Physical Exam Physical Exam: General: No acute distress Skin: Warm and dry, without rashes or lesions Head: Normocephalic, atraumatic Eyes: PERRL, conjunctivae clear, sclera non-icteric ENT: External ear and ear canal without swelling; nose atraumatic; good dentition, tongue normal appearance Neck: Supple, no LAD Cardio: RRR, no M/G/R, S1 and S2 normal Resp: No respiratory distress, Lungs CTA in all lobes bilaterally, no wheezes, rales, or rhonchi Abdomen: Soft, symmetric, nontender; No visible lesions or scars; no distention; No masses or hepatosplenomegaly; Bowel sounds normoactive MSK: No tenderness to palpation of spine, some tenderness to palpation of paraspinal muscles, mid-lower back; No deformities, full ROM throughout; pulses palpable and equal; no edema. Neuro: Awake, alert; CN grossly intact Psych: Appropriate mood and affect Family members present in room at time of visit. Results & Data Results & Data Vital Signs (Past 12 Hours) Vital Signs Temp Pulse Pulse Resp BP BP Pulse Ox 06/07/24 14:44 37.6 C H 82 18 162/99 H 94 06/07/24 14:44 94 06/07/24 14:43 81 17 162/99 H 94 06/07/24 13:53 85 06/07/24 12:44 38 C H 85 18 158/90 H 96 O2 Del Method 06/07/24 14:44 Room Air 06/07/24 14:44 Room Air 06/07/24 14:43 Room Air 06/07/24 13:53 06/07/24 12:44 Room Air Laboratory Results 06/07/24 13:09 Aerobic Blood Culture - Pending Blood Anaerobic Blood Culture - Pending 06/07/24 12:55 Aerobic Blood Culture - Pending Blood Anaerobic Blood Culture - Pending 06/07/24 06/07/24 06/07/24 14:42 12:55 12:50 WBC 8.75 RBC 4.54 L Hgb 14.4 Hct 41.3 L MCV 91.0 MCH 31.7 MCHC 34.9 RDW Std Deviation 43.2 RDW Coeff of Tiny 13.0 Plt Count 215 MPV 9.9 Immature Gran % (Auto) 0.5 Neut % (Auto) 84.7 Lymph % (Auto) 3.1 [place] % (Auto) 11.0 Eos % (Auto) 0.5 Baso % (Auto) 0.2 Neut # (Auto) 7.42 H Lymph # (Auto) 0.27 L [place] # (Auto) 0.96 H Eos # (Auto) 0.04 Baso # (Auto) 0.02 Immature Gran # (Auto) 0.04 PT 11.6 INR 1.1 APTT 31 PTT Ratio 1.2 Sodium 130 L Potassium 4.3 Chloride 97 L Carbon Dioxide 26 Anion Gap 7 BUN 20 Creatinine 0.84 Est Cr Clr Drug Dosing 66.7 eGFR 88.71 BUN/Creatinine Ratio 23.8 H Glucose 92 Lactate 1.1 Calcium 9.0 Magnesium 2.0 Total Bilirubin 0.4 Direct Bilirubin 0.0 AST 32 ALT 15 Alkaline Phosphatase 51 Troponin I High Sens 18.2 Total Protein 7.2 Albumin 4.0 Procalcitonin 0.06 Urine Color Yellow Urine Appearance Clear Urine pH 5.5 Ur Specific [place] 1.023 Urine Protein 1+ H Urine Glucose (UA) Negative Urine Ketones 2+ H Urine Blood 1+ H Urine Nitrite Negative Urine Bilirubin Negative Urine Urobilinogen Negative Ur Leukocyte Esterase Negative Urine WBC (Auto) 0-5 Urine RBC (Auto) 0-2 U Hyaline Cast (Auto) 0-2 U Epithel Cells (Auto) 0-2 Urine Bacteria (Auto) None Seen Adenovirus (PCR) Not Detected B. pertussis DNA (PCR) Not Detected B.parapertussis DNA PCR Not Detected C. pneumoniae DNA (PCR) Not Detected Coronavirus OC43 (PCR) Not Detected Coronavirus HKU1 (PCR) Not Detected Coronavirus 229E (PCR) Not Detected SARS-CoV-2 (PCR) Not Detected Coronavirus NL63 (PCR) Not Detected Human Metapneumovir PCR Not Detected Influenza A (H3) PCR DETECTED A Influenza Type B (PCR) Not Detected M. pneumoniae (PCR) Not Detected Parainfluenza 1 (PCR) Not Detected Parainfluenza 2 (PCR) Not Detected Parainfluenza 3 (PCR) Not Detected Parainfluenza 4 (PCR) Not Detected RSV (PCR) Not Detected Entero/Rhino (PCR) Not Detected Diagnostic Findings Chest X-Ray 06/07/24 12:44 XR chest 1V portable CLINICAL HISTORY: Sepsis TECHNIQUE: Single frontal radiograph of the chest was obtained. Comparison: Comparison is made to chest radiograph 03/14/2024 FINDINGS: No lines and tubes are seen. Calcified aortic knob is seen. The lungs are clear. No evidence of pleural effusion or pneumothorax. IMPRESSION: No acute abnormalities and in particular no radiographic evidence of pneumonia. ACT 112: Negative or not required by law. Electronically signed by: Diaz Guerra M.D. 06/07/2024 2:[address] 06/07/24 12:46 INDICATION: Headache. COMPARISON: CT from 03/15/2024. TECHNIQUE: Axial CT images of the head were obtained without IV contrast. Coronal and sagittal reformations were reviewed. FINDINGS: Reynoso-white differentiation is relatively preserved. No mass, mass effect or midline shift. Mild chronic ischemic white matter changes. No evidence of acute large territorial infarction or acute intracranial hemorrhage. Ventricles appear normal in size. Basal cisterns are patent. No depressed calvarial fracture. IMPRESSION: No acute intracranial process. Electronically signed by Elan Velasco 06-07-2024 2:57 PM Medications Administered NSS 1L IV Oseltamivir phosphate 75mg po ECG Additional Comments: DICTATED BY: Rosalva Marino, DO Test Reason : Blood Pressure : */* mmHG Vent. Rate : 83 BPM Atrial Rate : 83 BPM P-R Int : 160 ms QRS Dur : 90 ms QT Int : 368 ms P-R-T Axes : 70 43 35 degrees QTcB Int : 432 ms Sinus rhythm with Premature atrial complexes RSR' or QR pattern in V1 suggests right ventricular conduction delay Abnormal ECG When compared with ECG of 15-Mar-2024 21:47, Premature atrial complexes are now Present RSR' or QR pattern in V1 suggests right ventricular conduction delay is new Confirmed by Rosalva Marino (Darius) on 06/07/2024 4:48:18 PM Referred By: REFERRED SELF Confirmed By: Rosalva Marino Code Status & VTE Plan Code Status Full VTE Prophylaxis Plan VTE Prophylaxis will be ordered: Yes Supervising Physician Co-Signing Physician Notes PA Supervision Note: I personally saw and examined the patient. I verified all naidu points and agree with TEODORO Madrid with the following exceptions and/or additions: S-this patient is a 78-year-old male who presents with multiple falls, weakness, fever. Reports somewhat of a productive cough. Having some back pain after a fall recently down the stairs. Feels chills. O- Vitals reviewed Gen: AAOx2, NAD HEENT: Anicteric sclerae, EOMI CV: RRR 2/6 GIANCARLO at the RUSB nl S1S2 Pulm: CTAB no wcr Abd: +BS soft NT ND no masses or hernias Ext: No edema, 2+ DP pulses Skin: No rashes, warm/dry A/T-83-mvoi-old male here with falls, generalized weakness, in the setting of influenza A with febrile illness Supportive care, start Tamiflu PT/OT consults Check CT thoracic and lumbar spine for fracture given falls in the setting of osteoporosis PG Care Time/CCT Total # of Minutes Spent Total Time Spent with Patient: Total time spent is greater than 50% in coordination of care (as documented) at patient's floor/unit and/or counseling patient: Coding Level of Care Code 26313 INT INP/OBS CARE 3/75MIN Diagnoses Influenza A J10.1 Recurrent falls R29.6
[2024-06-07] MEDS ORDERED: MAGNESIUM HYDROXIDE SUSP 30 ML UDC PO PRN (19:14)
[2024-06-07] MEDS: ENOXAPARIN INJ 40 MG/0.4 ML SYR SQ SCH (20:51)
[2024-06-07] MEDS: TAMSULOSIN HCL 0.4 MG CAP PO SCH (20:51)
[2024-06-07] MEDS: CHOLECALCIFEROL 10 MCG (400 UNITS) TAB PO SCH (20:51)
[2024-06-07] MEDS: MEMANTINE HCL 10 MG TAB PO SCH (20:51)
[2024-06-07] MEDS: SIMVASTATIN 20 MG TAB PO SCH (20:51)
[2024-06-07] MEDS: SODIUM CHLORIDE 0.9% 1,000 ML IV SCH (20:51)
[2024-06-07] MEDS: MELATONIN 3 MG TAB PO PRN (20:52)
--- NOTE | 2024-06-07 21:15 | CT Scan Report ---
Exam(s): CT T SPINE EXAM: CT Thoracic Spine Without Intravenous Contrast CLINICAL HISTORY: Reason for exam: Fall, back pain. TECHNIQUE: Axial computed tomography images of the thoracic spine without intravenous contrast. CTDI is 38 mGy and DLP is 2210 mGy-cm. Automated exposure control was utilized for the study. A dose lowering technique was utilized adhering to the principles of ALARA. COMPARISON: No relevant prior studies available. FINDINGS: Vertebrae: Unremarkable. No acute fracture. No traumatic subluxation. Discs/spinal canal/neural foramina: Mild disc degeneration. No spinal canal stenosis. Soft tissues: Unremarkable. Lungs: Biapical pleural-parenchymal scarring. Bibasilar atelectasis. Calcified granulomas in the lungs. IMPRESSION: No acute findings in the thoracic spine. Electronically signed by: William Galeana M.D. 06/07/24 21:14 PM
--- NOTE | 2024-06-07 21:16 | CT Scan Report ---
Exam(s): CT L SPINE EXAM: CT Lumbar Spine Without Intravenous Contrast CLINICAL HISTORY: Reason for exam: Fall, back pain. TECHNIQUE: Axial computed tomography images of the lumbar spine without intravenous contrast. CTDI is 38 mGy and DLP is 2210 mGy-cm. Automated exposure control was utilized for the study. A dose lowering technique was utilized adhering to the principles of ALARA. COMPARISON: No relevant prior studies available. FINDINGS: Vertebrae: Osteopenia. No acute fracture. No traumatic subluxation. Discs/spinal canal/neural foramina: No acute findings. No spinal canal stenosis. Soft tissues: Unremarkable. IMPRESSION: No acute osseous findings. Electronically signed by: William Galeana M.D. 06/07/24 21:14 PM
[2024-06-07] MEDS: DICLOFENAC SOD 1% GEL 100 GM TUBE EXT SCH (22:51)
[2024-06-08] MEDS: MICONAZOLE NITRATE POWDER 85 GM EXT PRN (05:59)
[2024-06-08] MEDS: LEVOTHYROXINE SODIUM 88 MCG TABLET PO SCH (05:59)
[2024-06-08 06:41] LABS: Hematocrit (blood only) 40.9 % (42.0-52.0); Mean Corpuscular Hemoglobin 30.9 pg (25.0-34.0); Mean Corpuscular Hgb Conc 34.2 g/dL (32.0-36.0); Mean Corpuscular Volume 90.3 fL (80.0-100.0); Platelet Count 181 K/uL (130-400); RDW Coefficient of Variation 13.1 % (11.5-14.5); Red Blood Count 4.53 M/uL (4.70-6.10); White Blood Count 6.58 K/ul (4.8-10.8)
[2024-06-08 07:05] LABS: BUN Creatinine Ratio 20.8 (10-20); Calcium 8.2 mg/dl (8.6-10.3); Creatinine Clr Calc Pharmacy 72.7 ml/min; Potassium 4.1 mmol/L (3.5-5.1)
--- NOTE | 2024-06-08 07:53 | Hospitalist Progress Note ---
Date of Service June 08, 2024 Assessment & Plan (1) Influenza A: (2) Recurrent falls: Plan 78-year-old male PMHx aortic stenosis, BPH, hypothyroidism, HTN, dyslipidemia, and OP who presents to ED for recurrent falls. Noted to have fever upon arrival, influenza A positive. Patient is a poor historian; States that this morning, he was walking to the bathroom when he had a little bit of dizziness and felt weak so he fell to the ground. States that he slowly went down and caught himself on his hands and knees. Family reports many more falls over the past few weeks, almost daily, and unsafe living environment at home between the patient and his ; unable to care for self. CT head negative given reports of dizziness and weakness with fall to the ground. CXR negative for consolidative process and without hypoxia. Temp 38C on arrival. #Influenza A/Fever Stable/improving Continue Tamiflu Blood cultures sent/pending but does not appear to have bacterial infection at this time Remains on RA, 93% Added incentive spirometer and should be encouraged on use. Tylenol as needed Nutrition consult placed, supplements as needed but suspect great intake 2nd to choices (see subjective for discussion w/ sister Winnie this afternoon. PT/OT consults placed to ensure safe to return home but suspect benefit from additional services like PT as well as meals on wheels CM to follow Monitor hydration status, holding lisinopril and checking orthostatic VS given prior episodes of syncope w/ increasing lisinopril dose outpatient 5mg --> 10mg --> 20mg. Fluid restriction for suspected SIADH but could consider increasing solute as primarily water drinker at baseline. #Recurrent falls Ongoing falls x months, per family. Pt denies symptoms prior to falls and no pain. Family stated the pt was complaining of back pain after sliding down stairs ~ 4 days ago then patient admits that he has some back pain. No tenderness to palpation of spine, some tenderness to palpation mid-lower paraspinal muscles, no areas of ecchymosis or open wounds. CT thoracic/lumbar spine without acute fx/subluxation Heating pad/tylenol available Placed consultations for PT/OT as above as not initially ordered but suspect benefit from additional services at [facility]. See below under hyponatremia for further eval/investigation #Hyponatremia Likely secondary to poor oral intake over the past few days, family states that the patient does not eat or drink enough, sometimes not even having an entire meal per day. Received 1L NSS in ED however Na 128 on repeat Urine Osm ELEVATED 800s, fluid restriction placed and should be having fluids w/ increased solute intake, urine Na elevated to 200s, c/w SIADH. Not on significant medications to cause but could be worsened w/ meds for dementia and could be considered to hold. Does also appear to have had his lisinopril increased from 5mg to 10mg 04/28 with PCP. Did have + orthostatic VS last admission. Then in follow up with PCP 05/14, lisinopril further increased to 20mg -- Lisinopril placed on HOLD, orthostatic VS ordered. Does have murmur c/w aortic stenosis but no increased leg edema however suspect w/ hx orthostatic hypotension if not having adequate PO intake/dehydration issues at home this could have contributed to falls. Will also check cortisol w/ AM labs given chronic hyponatremia with such, TSH checked/wnl. Also is at risk for afib with his hypothyroidism, does appear communication order from prior req for holter monitor from PCP but has not been completed. Reports being backed up. Will need to have CM follow up on such. #BPH- retention x 2, schafer placed overnight Remains on flomax, finasteride. ?retention 2nd to constipation. Did have +BM this afternoon. Will place on colace BID to soften stools, increase activity with staff/therapy as tolerated. UA no bacteria Monitor UOP, voiding trial prior to dc. #Hypothyroidism- prior elevations w/ syncopal episodes req admission this year. concerns for underlying afib but denied palpitations and no afib on EKG but notes conduction delay. TSH repeated given Na level, was wnl and remains on current dose synthroid. Outpt f/u Dr Moyer #HTN- BP stable 142/75 BP was elevated on admission with BP 162/99, ?2nd to dehydration/pain/other As above, has been started/continued and increased lisinopril as outpatient with PCP to 20mg PO daily however with his underlying aortic stenosis on exam, ? if best medicine w/ orthostatic hypotension hx and falls. Did get his dose this morning, orthostatic VS ordered and will provide additional IVF if needed but avoiding for now as stable BP/ underling and not wanting to overload #Dementia -Donepezil, memantine. TSH wnl. B12 wnl earlier this year #HLD - Simvastatin VTE Prophylaxis: Lovenox Dispo: continued inpatient stay, tamiflu/incentive spirometer ordered, therapy consults placed and CM to follow up on needs prior to dc to ensure safe. Is [facility]/should be able to get plugged in. ?meals on wheels, HHPT, etc. Has been living on PB J sandwiches. Notable, currently home w/ flu as well and unable to reach. Was given ok to update sister Winnie Admission and Anticipated Discharge Date Admission Date: June 07, 2024 Supervising Physician Co-Signing Physician Notes The patient was not seen by me. The chart was reviewed. Case discussed with TEODORO Juarez. Agree with assessment and plan Subjective eval later in the morning, tired/resting. did eat breakfast for nursing, no aspiration noted. remains on tamiflu. was provided lisinopril this morning but recently increased by primary care and with falls.fractures and prior + orthostatic hypotension and underlying aortic stenosis may not be best medication for him. Will place on hold for tomorrow morning/monitor BP/orthostatic VS. Does appear with dry mm, Chest CT Already drank about 600cc fluids, on fluid restriction. 120cc milk, 120cc orange juice, 250cc water. Schafer in place and yellow but slightly concentrated urine. Will discuss w/ supervising provider given serum osm 269 c/w SIADH/excessive free water intake and placed on fluid restriction but does appear slightly dry on exam. This afternoon, appetite much improved/increased mentation/less fatigued. Updated sister Winnie per ok w patient as home ill with covid. Asked if increased falls at home w/ increased lisinopril when she talks w/ her sister to see if maybe contributing. She reports they have been caring for each other at home but that is unable to insurance verify rep kitchen for prepping meals and is worried about his nutrition status. Discussed albumin stable. She reports he has been living on peanut butter and jelly sandwiches for several weeks and that he is a [facility] and hoping to get some additional services when previously they tried to be as independent as they could. Support provided and will continue to update. She plans to update when able to reach but did discuss if concerns always police available for wellness check. Physical Exam 2 Physical Exam: General: fatigued appearing but NAD, occ cough, 93% on RA, diminished in the bases/faint bibasilar crackles. mm appear dry Resp: diminished in the bases with bibasilar crackles, occ cough but no tachypnea/distres and 93% on RA CV: RRR, + systolic murmur c/w aortic stenosis, NO pitting edema/calf pain. pulses present. GI: +BS, soft, slight distension but nontender :schafer with concentrated yellow urine MSK/Neuro: generalized weakness but nonfocal, fatigued but able to answer questions appropriately, alert/oriented to person/place Results & Data Results & Data Vital Signs (Past 12 Hours) Vital Signs Temp Pulse Resp BP Pulse Ox O2 Del Method 06/08/24 07:36 37.2 C 79 18 142/71 H 93 Room Air Laboratory Results 06/08/24 06:23 06/08/24 06:23 TSH 1.72 Urine osm 840 Urine Na 224 Diagnostic Findings Lumbar Spine CT 06/07/24 18:46 Exam(s): CT L SPINE EXAM: CT Lumbar Spine Without Intravenous Contrast CLINICAL HISTORY: Reason for exam: Fall, back pain. TECHNIQUE: Axial computed tomography images of the lumbar spine without intravenous contrast. CTDI is 38 mGy and DLP is 2210 mGy-cm. Automated exposure control was utilized for the study. A dose lowering technique was utilized adhering to the principles of ALARA. COMPARISON: No relevant prior studies available. FINDINGS: Vertebrae: Osteopenia. No acute fracture. No traumatic subluxation. Discs/spinal canal/neural foramina: No acute findings. No spinal canal stenosis. Soft tissues: Unremarkable. IMPRESSION: No acute osseous findings. Electronically signed by: William Galeana M.D. 06/07/24 21:[address] 06/07/24 18:50 Exam(s): CT T SPINE EXAM: CT Thoracic Spine Without Intravenous Contrast CLINICAL HISTORY: Reason for exam: Fall, back pain. TECHNIQUE: Axial computed tomography images of the thoracic spine without intravenous contrast. CTDI is 38 mGy and DLP is 2210 mGy-cm. Automated exposure control was utilized for the study. A dose lowering technique was utilized adhering to the principles of ALARA. COMPARISON: No relevant prior studies available. FINDINGS: Vertebrae: Unremarkable. No acute fracture. No traumatic subluxation. Discs/spinal canal/neural foramina: Mild disc degeneration. No spinal canal stenosis. Soft tissues: Unremarkable. Lungs: Biapical pleural-parenchymal scarring. Bibasilar atelectasis. Calcified granulomas in the lungs. IMPRESSION: No acute findings in the thoracic spine. Electronically signed by: William Galeana M.D. 06/07/24 21:14 PM PG Care Time/CCT Total # of Minutes Spent Total Time Spent with Patient: Total time spent is greater than 50% in coordination of care (as documented) at patient's floor/unit and/or counseling patient: Coding Level of Care Code 98972 SUB INP/OBS CARE 3/50MIN Diagnoses Influenza A J10.1 Recurrent falls R29.6
[2024-06-08] MEDS: FINASTERIDE 5 MG TAB PO SCH (08:42)
[2024-06-08] MEDS: MULTIVITAMIN TAB PO SCH (08:42)
[2024-06-08] MEDS: CALCIUM CITRATE 950 MG TAB PO SCH (08:42)
[2024-06-08] MEDS: DONEPEZIL HCL 5 MG TAB PO SCH (08:43)
[2024-06-08] MEDS: lisinopril 20 MG TAB PO SCH (08:43)
[2024-06-08] MEDS: OSELTAMIVIR PHOSPHATE 75 MG CAP PO SCH (08:44)
--- NOTE | 2024-06-08 10:23 | Electrocardiogram Report ---
Test Reason : Blood Pressure : */* mmHG Vent. Rate : 86 BPM Atrial Rate : 86 BPM P-R Int : 154 ms QRS Dur : 98 ms QT Int : 364 ms P-R-T Axes : 62 58 46 degrees QTcB Int : 435 ms Sinus rhythm with Premature atrial complexes Incomplete right bundle branch block Rightward axis Borderline ECG When compared with ECG of 07-Jun-2024 12:40, No significant change was found Confirmed by Rosalva Marino (Darius) on 06/08/2024 10:23:17 AM Referred By: REFERRED SELF Confirmed By: Rosalva Marino
[2024-06-08] MEDS: DOCUSATE SODIUM 100 MG CAP PO SCH (19:42)
--- NOTE | 2024-06-09 08:35 | Hospitalist Progress Note ---
<Statement entered by Maame Rangel MD - 06/09/24 19:13> it is likely the elevated cortisol is an appropriate response to infection with influenza A regarding his hyponatremia seems like he probably does have both low solute intake as well as SIADH. his serum albumin was normal if he does respond to urea, twice a day protein supplement ideally 30 g is a good substitute for use as an outpatient Date of Service June 09, 2024 Assessment & Plan (1) Influenza A: (2) Recurrent falls: Plan 78-year-old male PMHx aortic stenosis, BPH, hypothyroidism, HTN, dyslipidemia, and OP who presents to ED for recurrent falls. Noted to have fever upon arrival , influenza A positive. Patient is a poor historian; States that this morning, he was walking to the bathroom when he had a little bit of dizziness and felt weak so he fell to the ground. States that he slowly went down and caught himself on his hands and knees. Family reports many more falls over the past few weeks, almost daily, and unsafe living environment at home between the patient and his ; unable to care for self. CT head negative given reports of dizziness and weakness with fall to the ground. CXR negative for consolidative process and without hypoxia. Temp 38C on arrival. #Influenza A/Fever Continue Tamiflu Blood cx NGTD Supplemental O2 as needed, remains on RA Incentive spirometer ordered, encouraged. Adding mucinex/duonebs ly for CXR w/ opacity/infectious bronchiolitis. Will plan for C2V in AM, procal w/ AM labs to ensure not needing bacterial coverage but has been afebrile since 06/07 Tylenol prn PT/OT consulted, discuss w/ family and feel UNSAFE at current time. Did discuss BP and elevated at PCP but pt declined lightheaded/dizziness or falls but was falling and had this increased. WIll hold off further. #Recurrent falls Ongoing falls x months, per family. Pt denies symptoms prior to falls and no pain. Family stated the pt was complaining of back pain after sliding down stairs ~ 4 days ago then patient admits that he has some back pain. No tenderness to palpation of spine, some tenderness to palpation mid-lower paraspinal muscles, no areas of ecchymosis or open wounds. CT thoracic/lumbar spine without acute fx/subluxation Heating pad/Tylenol available HOLD LISINOPRIL, monitor BP OFF SUCH. suspect NOT best medication. Family did report holter monitor was done but no results yet. Will need f/u regarding such. TSH wnl Did check Cortisol w/ hx orthostatic hypotension, NOT low but surprisingly high 30, ?2nd to malnourshment at home vs other. Repeat w/ ACTH in AM/discuss w/ endo Also hx lyme in 2021, 2022, can repeat w/ AM labs Therapy evals as above #Hyponatremia acute on chronic, likes WATER HATES salt. Suspect 2nd to poor PO intake from above worsened usual lack of hydration, sometimes reporting not having entire meal per day, living off PB/J per his sister Winnie Urine Osm 800s, urine Na 200s, c/w SIADH. TSH wnl on check Not on any benzo/SSRI, no diuretics Placed on fluid restriction but have loosened parameters but encouraged incr eased solute intake. Na 128--129 with fluid restriction Have CHANGED from AHA to REGULAR diet Urea BID to see if effective Cortisol AM w/ ACTH for further eval given chronic nature above Monitor #BPH Retention x 2, schafer placed overnight 06/08 Flomax/proscar continued. ?2nd to constipation. +BM 06/08 on colacce BID. UA no bacteria but can send for repeat sample to ensure no issue Plan for voiding trial in AM vs prior to dc pending ambulation status #Hypothyroidism Prior elevations w/ syncopal episodes req admission this year and checked repeat TSH which was normal. Contiues current dose synthroid at this time. Outpt f/u Dr Gabriel as previously following. F/u holter monitor results from last admission as available #HTN Recent elevations and resumption of lisinopril by PCP however as outlined concerns BP elevation w/ dehydration and increased falls w/ increasing dose of lisinopril w/ PCP and have placed on HOLD BP 108/61 this afternoon, orthostatic VS as able to get #Dementia Donepezil, memantine. TSH wnl. B12 wnl earlier this year Frequent orientation/day sleep schedules encouraged #HLD Simvastatin continued Lovenox SQ while inpatient for DVT prophylaxis Dispo: continued inpatient stay on tamiflu, added mucinex/nebs, monitor for progression for superimposed bacterial infection. Continue pulmonary toilet. Updated daughter in house 06/09. PT/OT consults pending and at present time family with concerns about safely returning to current living situation. CM to follow Admission and Anticipated Discharge Date Admission Date: June 07, 2024 Subjective Eval this morning, sitting up in bed, +tremor/feeling cold, temp in room 55 degrees and turned up/provided warm blankets. Does endorse cough, occasional sputum but on room air. Decent appetite but needing help fed. No CP, nausea reported. Schafer with concentrated yellow urine. Discussed fluids, likes water primarily. Discussed w/ daughter outside of room as able to update per patient. She reports concerns for not taking care of patient/not checking BP/not providing meals, they sit in dirty/wet clothes at times and report having memory issues and will appear fine and then agree to things and then decline them. Discussed having wellness check and encouraged them to consider having such for mom at home. Discussed plan/status.They report issues w/ the well/water system in place and patient only drinking water, doesn't like salt. Discussed increasing solute but will try urea to see if able to improve. CM consult placed for safety concerns, therapy evaluations pending. Physical Exam Physical Exam: General: fatigued appearing but NAD, occ cough, 92% on RA, diminished in the bases/faint bibasilar crackles. mm appear dry, hydration encouraged Resp: diminished in the bases with bibasilar crackles, occ cough, exp wheezing RUL, 93% on RA CV: RRR, + systolic murmur c/w aortic stenosis, NO pitting edema/calf pain. pulses present. GI: +BS, soft, slight distension but nontender :schafer with concentrated yellow urine MSK/Neuro: generalized weakness but nonfocal, fatigued but able to answer questions appropriately, alert/oriented to person, intermittent to events, demen tia at baseline Results & Data Results & Data Vital Signs (Past 12 Hours) Vital Signs Pulse Resp BP Pulse Ox O2 Del Method 06/09/24 07:27 92 H 18 152/82 H 92 Room Air PG Care Time/CCT Total # of Minutes Spent Total Time Spent with Patient: Total time spent is greater than 50% in coordination of care (as documented) at patient's floor/unit and/or counseling patient: Coding Level of Care Code 44557 SUB INP/OBS CARE 3/50MIN Diagnoses Influenza A J10.1 Recurrent falls R29.6
[2024-06-09 09:24] LABS: Hematocrit (blood only) 38.8 % (42.0-52.0); Hemoglobin 13.8 g/dl (14.0-18.0); Mean Corpuscular Hemoglobin 30.9 pg (25.0-34.0); Mean Corpuscular Hgb Conc 35.6 g/dL (32.0-36.0); Mean Platelet Volume 10.1 fL (9.4-12.4); Platelet Count 187 K/uL (130-400); RDW Coefficient of Variation 12.8 % (11.5-14.5); RDW Standard Deviation 40.3 fL (36.4-46.3); Red Blood Count 4.46 M/uL (4.70-6.10)
[2024-06-09 09:38] LABS: BUN Creatinine Ratio 25.4 (10-20); Calcium 8.1 mg/dl (8.6-10.3); Creatinine Clr Calc Pharmacy 88.9 ml/min; Magnesium 1.6 mg/dl (1.7-2.4); Potassium 3.7 mmol/L (3.5-5.1)
[2024-06-09] MEDS: MAGNESIUM SULFATE / D5W 1 GM/100 ML BAG IV SCH (14:00)
--- NOTE | 2024-06-09 17:23 | XRay Report ---
EXAM: Portable AP chest radiograph TECHNIQUE: AP portable radiograph of the chest was obtained. INDICATION: Shortness of breath Comparison: Chest radiograph June 07, 2024 FINDINGS: LINES and TUBES: None. CARDIOVASCULAR: Cardiac silhouette is stably and mildly enlarged in size. LUNGS/PLEURA: New acute infiltrates are identified over the right upper and lower lobes of the lungs. Peribronchial cuffing likely representing infectious/inflammatory bronchiolitis. No significant pleural fluid. No discernible pneumothorax. OSSEOUS/OTHER: No displaced acute osseous process identified. IMPRESSION: New infiltrates of the right lung involving the upper and the lower lobes likely representing multifocal pneumonia with underlying infectious/inflammatory bronchiolitis. Electronically signed by Eligio Roberson 06-09-2024 5:23 PM
[2024-06-09 18:50] LABS: Appearance Urine Cloudy (Clear); Bacteria Urine Automated None Seen (None Seen); Bilirubin Urine Negative (Negative); Blood Urine 3+ (Negative); Color Urine Dark Yellow; Glucose Urine UA Negative (Negative); Ketones Urine 2+ (Negative); Leukocyte Esterase Urine Negative (Negative); Mucus Urine Present (None Prsent); Nitrite Urine Negative (Negative); Protein Urine 3+ (Negative); RBC Urine Automated >20 /hpf (0-2); Specific Gravity Urine 1.035 (1.000-1.030); Urobilinogen Urine Negative (Negative); WBC Urine Automated 0-5 /hpf (0-5); pH Urine 5.5 (4.5-7.5)
[2024-06-09] MEDS: ALBUT/IPRATROP 3MG/0.5MG NEB 3 ML VIAL NEB SCH (20:30)
[2024-06-09] MEDS: UREA (UREA-NA) 15 GM PACK PO SCH (22:36)
[2024-06-09] MEDS: guaiFENesin 600 MG TABCR PO SCH (22:56)
[2024-06-10 07:50] LABS: Basophils # (auto) 0.01 K/uL (0.00-0.20); Basophils % (auto) 0.1 %; Hematocrit (blood only) 36.5 % (42.0-52.0); Hemoglobin 12.9 g/dl (14.0-18.0); Immature Granulocytes # (auto) 0.04 K/uL (0.01-0.20); Immature Granulocytes % (auto) 0.5 %; Lymphocytes # (auto) 0.43 K/uL (1.20-3.40); Lymphocytes % (auto) 5.1 %; Mean Corpuscular Hemoglobin 30.8 pg (25.0-34.0); Mean Corpuscular Hgb Conc 35.3 g/dL (32.0-36.0); Mean Corpuscular Volume 87.1 fL (80.0-100.0); Mean Platelet Volume 10.1 fL (9.4-12.4); Monocytes # (auto) 0.51 K/uL (0.11-0.59); Neutrophils # (auto) 7.51 K/uL (1.40-6.50); Neutrophils % (auto) 88.3 %; Platelet Count 175 K/uL (130-400); RDW Coefficient of Variation 13.2 % (11.5-14.5); RDW Standard Deviation 41.3 fL (36.4-46.3); Red Blood Count 4.19 M/uL (4.70-6.10)
[2024-06-10 08:10] LABS: BUN Creatinine Ratio 28.8 (10-20); Calcium 8.1 mg/dl (8.6-10.3); Magnesium 2.2 mg/dl (1.7-2.4); Potassium 3.4 mmol/L (3.5-5.1)
--- NOTE | 2024-06-10 08:50 | XRay Report ---
XR chest 2V PA/lateral CLINICAL HISTORY: f/u opacity, PNA vs atelectasis TECHNIQUE: 2 views of the chest were obtained. Comparison: Comparison is made to chest radiograph 06/09/2024 FINDINGS: No lines and tubes are seen. Calcified aortic knob is seen. Airspace opacities are seen in the right mid and lower lungs, increased from prior exam. No evidence of pleural effusion or pneumothorax. IMPRESSION: Interval increase in airspace opacities in the right lung likely representing worsening pneumonia and /or aspiration. ACT 112: Negative or not required by law. Electronically signed by: Diaz Guerra M.D. 06/10/2024 8:48 AM
--- NOTE | 2024-06-10 09:09 | Hospitalist Progress Note ---
Date of Service June 10, 2024 Assessment & Plan (1) Influenza A: Plan: 78-year-old male PMHx aortic stenosis, BPH, hypothyroidism, HTN, dyslipidemia, and OP who presents to ED for recurrent falls with reported dizziness/weakness and fell to ground. No LOC/head trauma, but family reporting unsafe at home/living environment and unable to care for him. Malnourishment/maybe one meal daily. CT head negative on admission, CXR negative for consolidative process but temp 38C on arrival, no hypoxia. + influenza testing Tamiflu continued Blood cx NGTD, Procal 0.06 initially Incentive spirometer encouraged, added Mucinex/nebs for repeat CXR w/ opacity/infectious bronchiolitis with plans for repeat/procal to ensure not needing coverage for bacterial PNA WBC normal on repeat/no further fevers since admission, no choking with foods/diet reported but CXR w/ concerns for progression and procal 1.79, increased cough/sputum farmer in color per nursing and ZOSYN IV STARTED Continue pulmonary toilet, sputum cx if able to collect, nebs Speech eval -- no issues, but plan for video swallow given CXR/procal to ensure no issues. Tylenol prn PT/OT consulted but did discuss w/ patient and agreeable to rehab at dc if recommended. Updated sister 06/08, daughter at bedside 06/09 (2) Pneumonia: Plan: as above, concerns given elevated procal/CXR needing coverage for superimposed bacteria PNA. Blood cx were obtained from admission and remain NGTD Monitor repeat exam/imaging in f/u (3) Hyponatremia: Plan: acute on chronic, TSH wnl Urine Na HIGH 220s, not on diuretics/SSRI/benzos --> suspect SIADH. Also increased urine osm 800s, serum osm 269 Had been given NSS on admission, worsened not surprisingly. Doesn't eat any salt in diet Did check cortisol given hx +orthostatic hypotension and recent rx lisinopril/increased --> elevated. ?malnourishment vs other. Repeat improving w/ nutrition but sent for ACTH Urea BID started 06/09 and diet changed from AHA to REGULAR Na improved/stable 130 and will continue urea BID/monitor BMP in AM (4) Recurrent falls: Plan: Ongoing falls x months, per family. Pt denied symptoms prior to falls and no pain. Family stated the pt was complaining of back pain after sliding down stairs ~ 4 days ago then patient admits that he has some back pain. No tenderness to palpation of spine, some tenderness to palpation mid-lower paraspinal muscles, no areas of ecchymosis or open wounds. CT thoracic/lumbar spine without acute fx/subluxation Heating pad/Tylenol available Lisinopril as below, would likely NOT resume at dc (5) Hypothyroidism: Plan: Prior elevations w/ syncopal episodes req admission this year and checked repeat TSH which was normal. Continues current dose Synthroid at this time. Outpt f/u Dr Gabriel as previously following. F/u holter monitor results from last admission as available as daughter reported they were done but haven't heard back (6) Benign hypertension: Plan: Hx such, was on lisinopril/amlodipine which were held last admission and resumed low dose lisinopril in f/u but as above has been increased for BP in office but SUSPECT elevations from dehydration/compensatory response suspect NOT best medication for him, especially as has been doubled from 5mg--> 10mg --> 20mg daily by PCP w/ +orthostatic VS last admission. Likely would DC lisinopril, monitor for low dose amlodipine as needed vs other. (7) Tremor: Plan: resolved, temp in room changed/Na stable. no drinking/alcohol use hx (8) Benign localized prostatic hyperplasia with lower urinary tract symptoms (LUTS): Plan: Retention x 2, mata placed overnight 06/08 Flomax/proscar continued. ?2nd to constipation. +BM 06/08 on colacce BID. UA no bacteria, no fever/sx reported Plan for voiding trial in AM vs prior to dc pending ambulation status Plan Other problems: #Dementia -Donepezil, memantine continued. TSH wnl. B12 wnl earlier this year. Frequent orientation/day sleep schedules encouraged. Mental status appears stable/improved 06/10 #HLD-Simvastatin continued DVT proph: Lovenox SQ Dispo: continued inpatient stay, added abx for suspected bacterial pneumonia /speech consulted. Continue pulm toilet/O2 if needed. PT/OT consults pending but patient was agreeable to rehab if needing prior to returning home (also family w/ concerns re: safety at home, CM consult for needs palced) Admission and Anticipated Discharge Date Admission Date: June 07, 2024 Subjective Eval this afternoon, sitting up in the chair eating lunch. More awake/alert, less fatigued but ongoing cough, denied overt SOB and remains on RA with low normal O2 ~92%. Denies sputum production but nursing reporting farmer/brownish in color at times. Stable/good appetite, has been eating all meals. Mata with concentrated yellow urine, free water restriction in place. Denies issues with swallowing/choking on food however discussed CXR with concerns for need for coverage for bacterial infection, also checked procal and ELEVATED and abx started. Speech consulted for completeness. Incentive spirometry encouraged, on bedside table. He does ahve ongoing weakness w/ strength and he said he would be willing to consider rehab before going home if needed. Questions/concerns addressed at this time. Physical Exam Physical Exam: General: fatigued appearing but NAD, occ cough, 92% on RA, diminished in the bases/faint bibasilar crackles. mm appear dry, hydration encouraged Resp: diminished in the bases with bibasilar crackles, occ cough, exp wheezing RUL, 93% on RA CV: RRR, + systolic murmur c/w aortic stenosis, NO pitting edema/calf pain. pulses present. GI: +BS, soft, slight distension but nontender :mata with concentrated yellow urine MSK/Neuro: generalized weakness but nonfocal, fatigued but able to answer questions appropriately, alert/oriented to person, intermittent to events, dementia at baseline Results & Data Results & Data Vital Signs (Past 12 Hours) Vital Signs Temp Pulse Resp BP Pulse Ox O2 Del Method 06/10/24 07:41 63 20 90 Room Air 06/10/24 07:01 36.5 C 70 18 107/63 94 Room Air 06/10/24 02:24 66 16 94 Room Air PG Care Time/CCT Total # of Minutes Spent Total Time Spent with Patient: Total time spent is greater than 50% in coordination of care (as documented) at patient's floor/unit and/or counseling patient: Coding Level of Care Code 62383 SUB INP/OBS CARE 3/50MIN Diagnoses Influenza A J10.1 Pneumonia J18.9 Hyponatremia E87.1 Recurrent falls R29.6 Hypothyroidism E03.9 Benign hypertension I10 Tremor R25.1 Benign localized prostatic hyperplasia with lower urinary tract symptoms (LUTS) N40.1
[2024-06-10] MEDS: POTASSIUM CHLORIDE CRTAB 20 MEQ TABCR PO STA (11:18)
[2024-06-10] MEDS: PIPERACILLIN/TAZOBACTAM 4.5 GM/100 ML BAG IV ONE (13:00)
[2024-06-10] MEDS: PIPERACILLIN/TAZOBACTAM 4.5 GM/100 ML BAG IV SCH (18:00)
[2024-06-11 07:42] LABS: Basophils # (auto) 0.01 K/uL (0.00-0.20); Basophils % (auto) 0.1 %; Eosinophils # (auto) 0.02 K/uL (0.00-0.50); Eosinophils % (auto) 0.2 %; Hematocrit (blood only) 34.6 % (42.0-52.0); Hemoglobin 12.1 g/dl (14.0-18.0); Immature Granulocytes # (auto) 0.05 K/uL (0.01-0.20); Immature Granulocytes % (auto) 0.6 %; Lymphocytes # (auto) 0.63 K/uL (1.20-3.40); Lymphocytes % (auto) 7.7 %; Mean Corpuscular Hemoglobin 30.9 pg (25.0-34.0); Mean Corpuscular Volume 88.3 fL (80.0-100.0); Mean Platelet Volume 10.5 fL (9.4-12.4); Monocytes # (auto) 0.53 K/uL (0.11-0.59); Monocytes % (auto) 6.5 %; Neutrophils # (auto) 6.96 K/uL (1.40-6.50); Neutrophils % (auto) 84.9 %; Platelet Count 183 K/uL (130-400); RDW Coefficient of Variation 13.1 % (11.5-14.5); RDW Standard Deviation 42.7 fL (36.4-46.3); Red Blood Count 3.92 M/uL (4.70-6.10)
[2024-06-11 07:57] LABS: BUN Creatinine Ratio 35.5 (10-20); Calcium 7.9 mg/dl (8.6-10.3); Creatinine Clr Calc Pharmacy 73.7 ml/min; Magnesium 1.9 mg/dl (1.7-2.4); Potassium 3.8 mmol/L (3.5-5.1)
--- NOTE | 2024-06-11 08:35 | Hospitalist Progress Note ---
Date of Service June 11, 2024 Assessment & Plan (1) Influenza A: Plan: 78-year-old male PMHx aortic stenosis, BPH, hypothyroidism, HTN, dyslipidemia, and OP who presents to ED for recurrent falls with reported dizziness/weakness and fell to ground. No LOC/head trauma, but family reporting unsafe at home/living environment and unable to care for him. Malnourishment/maybe one meal daily. CT head negative on admission, CXR negative for consolidative process but temp 38C on arrival, no hypoxia. Procal initially 0.06 + influenza testing, placed on tamiflu and has been continued Pulmonary toilet, mucinex BID added, sputum cx if able to obtain WBC normalized however exam 06/10 appearing worse with increased cough/wheezing/rales on exam concerning for progression/superimposed bacterial infection Repeat CXR w/ increase in airspace opacities, PNA and/or aspiration but denied issues w/ swallowing and no choking reported by nursing Procal obtained for comparison --> 0.06--> 1.79 Started Zosyn IV 06/11 Blood cx from admission remain NGTD Improved lung exam 06/11 with Zosyn which has been continued Supplemental O2 as needed to maintain sats -- has been stable on RA, 93% Tessalon pearls for cough. Tylenol available as needed PT/OT evals, will benefit from rehab and agreeable. NOT SAFE FOR RETURN HOME w/ family concerns/living environment (2) Pneumonia: Plan: as above, concerns given elevated procal/CXR needing coverage for superimposed bacteria PNA. Zosyn IV continued Blood cx were obtained from admission and remain NGTD Speech consulted, no aspiration/choking reported and did well at bedside eval but given procal/concerns for pneumonia are planning video in the morning to r/o aspiration (3) Hyponatremia: Plan: acute on chronic, TSH wnl Urine Na HIGH 220s, not on diuretics/SSRI/benzos--> suspect SIADH. Also increased urine osm 800s, serum osm 269 NSS on admission w/ worsening Na to 128. As above, urine Na HIGH, fluid restriction up front and changed to REGULAR diet from [facility] (doesn't eat any salt in diet) and UREA BID started 06/09 -->WITH IMPROVEMENT and Na 132 today and will continue urea BID Repeat Urine Na down to 34 and will continue OFF fluid restriction for now See prior note, cortisol level elevated 30s- ?2nd malnourishment prior to admission w/ improvement on repeat but ACTH sent/pending. Has been seen by Dr Moyer in the past. BMP in AM (4) Recurrent falls: Plan: Ongoing falls x months, per family. Pt denied symptoms prior to falls and no pain. Family stated the pt was complaining of back pain after sliding down stairs ~ 4 days ago then patient admits that he has some back pain. No tenderness to palpation of spine, some tenderness to palpation mid-lower paraspinal muscles, no areas of ecchymosis or open wounds. CT thoracic/lumbar spine without acute fx/subluxation Heating pad/Tylenol available Lisinopril as below, would likely NOT resume at dc (5) Hypothyroidism: Plan: Prior elevations w/ syncopal episodes req admission this year and checked repeat TSH which was normal. Continues current dose Synthroid at this time. Outpt f/u Dr Moyer as previously following. F/u holter monitor results from last admission as available as daughter reported they were done but haven't heard back (6) Benign hypertension: Plan: Hx such, was on lisinopril/amlodipine which were held last admission and resumed low dose lisinopril in f/u but as above has been increased for BP in office but SUSPECT elevations from dehydration/compensatory response suspect NOT best medication for him, especially as has been doubled from 5mg--> 10mg --> 20mg daily by PCP w/ +orthostatic VS last admission. BPS OFF LISINOPRIL ONLY 107*63-123/78 as the highest since placing on HOLD --> WOULD NOT RESUME THIS MEDICATION AT DC. Monitor OFF, orthostatic VS have been ordered as able to obtain given ambulation/weakness from above (7) Tremor: Plan: on exam 06/09 but temp in room set to 55F and adjusted. no alcohol use reported. No further tremor w/ increase temp in room. (8) Benign localized prostatic hyperplasia with lower urinary tract symptoms (LUTS): Plan: Retention x 2, schafer placed overnight 06/08 Flomax/proscar continued. ?2nd to constipation. +BM 06/08 on colacce BID. UA no bacteria, no fever/sx reported Plan for voiding trial in AM vs prior to dc pending ambulation status/orthostatic vs (9) Memory impairment of gradual onset: Plan: suspect fatigue 2nd to above is alert to person/place, intermittent to event but knew the year sleep/wake schedules encouraged tsh/b12 wnl Hx dementia and remains on donepezil/memantine. TSH/B12 wnl. Mental status appears stable/improved 06/10, does appear slightly fatigued today but reports feeling better Plan DVT proph: Lovenox SQ Dispo: continued inpatient stay, continues on tamiflu/zosyn for bacterial pneumonia. pulmonary toilet/O2 if needed but has remained stable off. Urea BID for hypona and OFF lisinopril/HTN meds, monitor orthostatic VS Speech for video swallow in AM Admission and Anticipated Discharge Date Admission Date: June 07, 2024 Supervising Physician Co-Signing Physician Notes The patient was not seen by me. The chart was reviewed. Case discussed with TEODORO Juarez. Agree with assessment and plan Subjective EVal this morning, sitting up in bed. Had some breakfast but not great appetite today. Does have a little bit of a sore throat today, no thrush observed but could be from all the coughing day prior. No further significant cough today, does report he thinks breathing improved. Reports in [facility], unsure on the year. Appears fatigued. Urine yellow in catheter bag, slightly concentrated. Discussed removal of restrictions for today. No further fever. No lower extremity edema. BP stable OFF lisinopril and will continue off for this time. Remains agreeable for rehab, therapy evals pending. Physical Exam 2 Physical Exam: General: fatigued appearing but slightly improved, less cough HEENT head atraumatic, normocephalic, mm slightly dry, trachea midline Resp: decreased expiratory wheezing, improvement in air entry but remains diminished in the bases with associated rales, no tachypnea, decreased cough, 93% onRA CV: RRR, +systolic murmur but no pitting edema, calves nontender GI: +BS, soft/NT : schafer draining yellow concentrated urine MSK/Neuro/Psych; alert to person, place (knows in [place]/hospital), intermittent to events but cooperative, nonfocal, able to follow commands as asked Results & Data Results & Data Vital Signs (Past 12 Hours) Vital Signs Temp Pulse Resp BP Pulse Ox O2 Del Method 06/11/24 07:28 36.3 C L 74 15 120/72 93 Room Air 06/11/24 07:18 63 16 94 Room Air 06/11/24 00:52 72 17 94 Room Air 06/10/24 21:35 Room Air Laboratory Results 06/11/24 06:46 06/11/24 06:46 Mag 1.9 Urine sodium 34 Diagnostic Findings 06/10 XR chest 2V PA/lateral CLINICAL HISTORY: f/u opacity, PNA vs atelectasis TECHNIQUE: 2 views of the chest were obtained. Comparison: Comparison is made to chest radiograph 06/09/2024 FINDINGS: No lines and tubes are seen. Calcified aortic knob is seen. Airspace opacities are seen in the right mid and lower lungs, increased from prior exam. No evidence of pleural effusion or pneumothorax. IMPRESSION: Interval increase in airspace opacities in the right lung likely representing worsening pneumonia and/or aspiration. ACT 112: Negative or not required by law. PG Care Time/CCT Total # of Minutes Spent Total Time Spent with Patient: Total time spent is greater than 50% in coordination of care (as documented) at patient's floor/unit and/or counseling patient: Coding Level of Care Code 66161 SUB INP/OBS CARE 3/50MIN Diagnoses Influenza A J10.1 Pneumonia J18.9 Hyponatremia E87.1 Recurrent falls R29.6 Hypothyroidism E03.9 Benign hypertension I10 Tremor R25.1 Benign localized prostatic hyperplasia with lower urinary tract symptoms (LUTS) N40.1 Memory impairment of gradual onset R41.3
[2024-06-12 07:00] LABS: Hematocrit (blood only) 36.9 % (42.0-52.0); Mean Corpuscular Hemoglobin 30.9 pg (25.0-34.0); Mean Corpuscular Hgb Conc 35.2 g/dL (32.0-36.0); Mean Corpuscular Volume 87.6 fL (80.0-100.0); Mean Platelet Volume 10.1 fL (9.4-12.4); Platelet Count 207 K/uL (130-400); RDW Coefficient of Variation 13.1 % (11.5-14.5); RDW Standard Deviation 41.9 fL (36.4-46.3); Red Blood Count 4.21 M/uL (4.70-6.10); White Blood Count 7.33 K/ul (4.8-10.8)
[2024-06-12 07:41] LABS: BUN Creatinine Ratio 25.8 (10-20); Calcium 8.3 mg/dl (8.6-10.3); Creatinine Clr Calc Pharmacy 84.9 ml/min; Magnesium 1.8 mg/dl (1.7-2.4); Potassium 3.9 mmol/L (3.5-5.1)
--- NOTE | 2024-06-12 17:16 | Hospitalist Progress Note ---
Date of Service June 12, 2024 Assessment & Plan (1) Influenza A: Plan: 78-year-old male PMHx aortic stenosis, BPH, hypothyroidism, HTN, dyslipidemia, and OP who presents to ED for recurrent falls with reported dizziness/weakness and fell to ground. No LOC/head trauma, but family reporting unsafe at home/living environment and unable to care for him. Concern for malnourishment as patient only eating maybe one meal daily at home. CT head negative on admission, CXR initially negative for acute process, but repeat CXR revealed right mid and lower lobe pneumonia. - Positive influenza A testing on admission, placed on Tamiflu and has been continued - Tylenol available as needed - PT/OT recommending SNF, referrals pending. NOT SAFE FOR RETURN HOME w/ family concerns/living environment (2) Pneumonia: Plan: Repeated CXR because of increased cough, wheezing, rales on exam with elevated procal - CXR revealed right mid and lower lobe opacities - Continue Zosyn for superimposed bacterial pneumonia - Supplemental O2 as needed to maintain sats -- has been stable on RA - Tessalon pearls for cough - Pulmonary toilet, Mucinex BID added, sputum cx if able to obtain - Blood cultures were obtained from admission and remain NGTD - Speech consulted, no aspiration/choking reported and did well at bedside eval but given acute pneumonia will plan for video swallow study to rule out aspirat ion. Unfortunately, radiology was fully booked today, so video swallow study will be deferred to tomorrow 06/13/2024 (3) Hyponatremia: Plan: Acute on chronic hyponatremia. TSH wnl - Given IV fluids on admission, with worsened hyponatremia - Urine Na HIGH 220s, not on diuretics/SSRI/benzos--> suspect SIADH. Also increased urine osm 800s, serum osm 269 - Liberalized diet to regular; initially placed on fluid restriction which has since been removed with improving sodium levels - Started/continued on urea BID with improvement in sodium levels See prior note, cortisol level elevated 30s- ?2nd malnourishment prior to admission w/ improvement on repeat but ACTH sent/pending. Has been seen by Dr Moyer in the past (4) Recurrent falls: Plan: Ongoing falls x months, per family. Pt denied symptoms prior to falls and no pain. Family stated the pt was complaining of back pain after sliding down stairs ~ 4 days ago then patient admits that he has some back pain. No tenderness to palpation of spine, some tenderness to palpation mid-lower paraspinal muscles, no areas of ecchymosis or open wounds. - CT thoracic/lumbar spine without acute fx/subluxation - Heating pad/Tylenol available - Lisinopril as below, would likely NOT resume at dc (5) Benign hypertension: Plan: Hx such, was on lisinopril/amlodipine which were held last admission and resumed low dose lisinopril in f/u but as above has been increased for BP in office but SUSPECT elevations from dehydration/compensatory response suspect NOT best medication for him, especially as has been doubled from 5mg--> 10mg --> 20mg daily by PCP w/ +orthostatic VS last admission. Reviewed vital signs 06/13 -- Blood pressures have been stable since placing lisinopril on hold --> WOULD NOT RESUME LISINOPRIL AT DC (6) Benign localized prostatic hyperplasia with lower urinary tract symptoms (LUTS): Plan: Retention x 2, schafer placed overnight 06/08 Flomax/proscar continued. ?2nd to constipation. +BM 06/08 on colacce BID. UA no bacteria, no fever/sx reported Plan for voiding trial in AM vs prior to dc pending ambulation status (7) Memory impairment of gradual onset: Plan: suspect fatigue 2nd to above is alert to person/time, intermittent to place and event sleep/wake schedules encouraged tsh/b12 wnl Hx dementia and remains on donepezil/memantine. TSH/B12 wnl. Mental status appears stable/improved (8) Hypothyroidism: Plan: Prior elevations w/ syncopal episodes req admission this year and checked repeat TSH which was normal. Continues current dose Synthroid at this time. Outpt f/u Dr Moyer as previously following. F/u Holter monitor results from last admission as available as daughter reported they were done but haven't heard back Plan Discussed case with speech therapy DVT proph: Lovenox SQ CODE STATUS: Full code Dispo: continued inpatient stay, continues on tamiflu/zosyn for flu/bacterial pneumonia. pulmonary toilet/O2 if needed but has remained stable off. Urea BID for hypona and OFF lisinopril/HTN meds Speech for video swallow in AM 1/3 Admission and Anticipated Discharge Date Admission Date: June 07, 2024 Subjective Patient seen and evaluated at bedside. He reports that he is "too scared to function." Review of systems was difficult to obtain secondary to patient's baseline mentation. He responded with "probably" when asked if he feels short of breath, though he does not display any signs of dyspnea at this time. He did not have any coughing episodes during my visit. He continued to talk about his "house on fire" despite being redirected throughout our conversation. No additional complaints or concerns at this time. Physical Exam Physical Exam: General: No acute distress, nondiaphoretic, well-developed, well-nourished. Skin: The skin was without rashes, erythema, edema, or bruising. Cardiac: Regular rate and rhythm. Systolic murmur noted. Pulm: Diminished in bases bilaterally but otherwise clear to auscultation without wheezes, rales, rhonchi. No respiratory distress. 94% on room air. Abdominal: Soft, nontender, nondistended. Bowel sounds present. : Schafer draining yellow urine. Neuro: A&O x2 (person and time, not place or event). No focal neurological deficits. Results & Data Results & Data Vital Signs (Past 12 Hours) Vital Signs Temp Pulse Resp BP Pulse Ox O2 Del Method 06/12/24 14:18 98.1 F 81 18 114/64 94 Room Air 06/12/24 13:17 86 18 96 Room Air 06/12/24 10:00 Room Air 06/12/24 07:40 98.4 F 63 18 152/79 H 95 Room Air 06/12/24 07:17 74 16 94 Room Air Laboratory Results Reviewed CBC Reviewed BMP PG Care Time/CCT Total # of Minutes Spent Total Time Spent with Patient: Total time spent is greater than 50% in coordination of care (as documented) at patient's floor/unit and/or counseling patient: Coding Level of Care Code 76270 SUB INP/OBS CARE 3/50MIN Diagnoses Influenza A J10.1 Pneumonia J18.9 Hyponatremia E87.1 Recurrent falls R29.6 Benign hypertension I10 Benign localized prostatic hyperplasia with lower urinary tract symptoms (LUTS) N40.1 Memory impairment of gradual onset R41.3 Hypothyroidism E03.9
[2024-06-13] MEDS ORDERED: ALBUT/IPRATROP 3MG/0.5MG NEB 3 ML VIAL NEB PRN (08:25)
[2024-06-13 09:16] LABS: BUN Creatinine Ratio 36.8 (10-20); Calcium 8.5 mg/dl (8.6-10.3); Creatinine Clr Calc Pharmacy 82.4 ml/min
--- NOTE | 2024-06-13 11:37 | Fluoroscopy Report ---
MODIFIED BARIUM SWALLOW CLINICAL HISTORY: assess for silent aspiration COMPARISON STUDY: None. FLUOROSCOPY TIME: 1.11 minutes. Ka,r: 11.6 mGy TECHNIQUE: A modified barium swallow was performed in conjunction with Speech Pathology. The patient ingested varying consistencies of barium containing material. Video fluoroscopy was performed. FINDINGS: No tracheal aspiration was identified with thin liquids by spoon, cup or straw. There was n o aspiration with nectar thick liquids, pudding or cracker and pudding consistencies. Epiglottic inve rsion was normal. Laryngeal elevation was normal. Moderate esophageal retention was noted at the comp letion of the study. IMPRESSION: 1. No tracheal aspiration. Intact swallowing mechanism. 2. Full recommendations by Speech pathology to follow. ACT 112: Negative or not required by law. Electronically signed by: Deng Castaneda M.D. 06/13/2024 11:35 AM
--- NOTE | 2024-06-13 19:04 | Hospitalist Progress Note ---
Date of Service June 13, 2024 Assessment & Plan (1) Influenza A: Plan: 78-year-old male PMHx aortic stenosis, BPH, hypothyroidism, HTN, dyslipidemia, and OP who presents to ED for recurrent falls with reported dizziness/weakness and fell to ground. No LOC/head trauma, but family reporting unsafe at home/living environment and unable to care for him. Concern for malnourishment as patient only eating maybe one meal daily at home. CT head negative on admission, CXR initially negative for acute process, but repeat CXR revealed right mid and lower lobe pneumonia. - Positive influenza A testing on admission, placed on Tamiflu and has been continued - Tylenol available as needed - PT/OT recommending SNF, referrals pending. NOT SAFE FOR RETURN HOME w/ family concerns/living environment (2) Pneumonia: Plan: Repeated CXR because of increased cough, wheezing, rales on exam with elevated procal - CXR revealed right mid and lower lobe opacities - Continue Zosyn for superimposed bacterial pneumonia - Supplemental O2 as needed to maintain sats -- has been stable on RA - Tessalon pearls for cough - Pulmonary toilet, Mucinex BID added - Blood cultures were obtained from admission and remain NGTD - Speech consulted as CXR was suspicious for silent aspiration. Video swallow study completed with no signs of aspiration or significant pharyngeal retention. He has signs and symptoms suspicious for esophageal dysmotility. > Recommends alternating solids and liquids, head of bed 30 degrees at all times, upright with meals and for 30 minutes after (3) Hyponatremia: Plan: Acute on chronic hyponatremia. TSH wnl - Given IV fluids on admission, with worsened hyponatremia - Urine Na HIGH 220s, not on diuretics/SSRI/benzos--> suspect SIADH. Also increased urine osm 800s, serum osm 269 - Liberalized diet to regular; initially placed on fluid restriction which has since been removed with improving sodium levels - Started/continued on urea BID with improvement in sodium levels See prior note, cortisol level elevated 30s- ?2nd malnourishment prior to admission w/ improvement on repeat but ACTH sent/pending. Has been seen by Dr Moyer in the past (4) Recurrent falls: Plan: Ongoing falls x months, per family. Pt denied symptoms prior to falls and no pain. Family stated the pt was complaining of back pain after sliding down stairs ~ 4 days ago then patient admits that he has some back pain. No tenderness to palpation of spine, some tenderness to palpation mid-lower paraspinal muscles, no areas of ecchymosis or open wounds. - CT thoracic/lumbar spine without acute fx/subluxation - Heating pad/Tylenol available - Lisinopril as below, would likely NOT resume at dc (5) Benign hypertension: Plan: Hx such, was on lisinopril/amlodipine which were held last admission and resumed low dose lisinopril in f/u but as above has been increased for BP in office but SUSPECT elevations from dehydration/compensatory response suspect NOT best medication for him, especially as has been doubled from 5mg--> 10mg --> 20mg daily by PCP w/ +orthostatic VS last admission. Reviewed vital signs /3 -- Blood pressures have been stable since placing lisinopril on hold --> WOULD NOT RESUME LISINOPRIL AT DC (6) Benign localized prostatic hyperplasia with lower urinary tract symptoms (LUTS): Plan: Retention x 2, schafer placed overnight 06/08 Flomax/proscar continued. ?2nd to constipation. +BM 06/08 on colacce BID. UA no bacteria, no fever/sx reported Plan for voiding trial in AM vs prior to dc pending ambulation status (7) Memory impairment of gradual onset: Plan: suspect fatigue 2nd to above is alert to person/time, intermittent to place and event sleep/wake schedules encouraged tsh/b12 wnl Hx dementia and remains on donepezil/memantine. TSH/B12 wnl. Mental status appears stable/improved (8) Hypothyroidism: Plan: Prior elevations w/ syncopal episodes req admission this year and checked repeat TSH which was normal. Continues current dose Synthroid at this time. Outpt f/u Dr Moyer as previously following. F/u Holter monitor results from last admission as available as daughter reported they were done but haven't heard back Plan Discussed results of video swallow study and recommendations with speech therapy Discussed breathing treatments with respiratory therapy Adjusted DuoNebs to as needed DVT proph: Lovenox SQ CODE STATUS: Full code Dispo: continued inpatient stay, continues on tamiflu/zosyn for flu/bacterial pneumonia. pulmonary toilet/O2 if needed but has remained stable off. Urea BID for hypona and OFF lisinopril/HTN meds Speech for video swallow in AM 1/3 Admission and Anticipated Discharge Date Admission Date: June 07, 2024 Subjective Patient seen and evaluated at bedside. He continued to fall asleep during my evaluation. He denied any complaints or concerns. RN reports no significant coughing today. Physical Exam Physical Exam: General: No acute distress, nondiaphoretic, well-developed, well-nourished. Skin: The skin was without rashes, erythema, edema, or bruising. Cardiac: Regular rate and rhythm. Systolic murmur noted. Pulm: Diminished in bases bilaterally but otherwise clear to auscultation without wheezes, rales, rhonchi. No respiratory distress. 96% on room air. Abdominal: Soft, nontender, nondistended. Bowel sounds present. : Schafer draining yellow urine. Neuro: A&O x2 (person and time, not place or event). No focal neurological deficits. Results & Data Results & Data Vital Signs (Past 12 Hours) Vital Signs Temp Pulse Resp BP Pulse Ox O2 Del Method O2 Flow Rate 06/13/24 14:26 98.8 F 65 14 120/69 96 Room Air 06/13/24 10:25 Room Air 06/13/24 07:55 98.4 F 72 14 134/73 100 Aerosol Mask 8 06/13/24 07:46 76 16 92 Room Air Laboratory Results Reviewed BMP PG Care Time/CCT Total # of Minutes Spent Total Time Spent with Patient: Total time spent is greater than 50% in coordination of care (as documented) at patient's floor/unit and/or counseling patient: Coding Level of Care Code 14118 SUB INP/OBS CARE 3/50MIN Diagnoses Influenza A J10.1 Pneumonia J18.9 Hyponatremia E87.1 Recurrent falls R29.6 Benign hypertension I10 Benign localized prostatic hyperplasia with lower urinary tract symptoms (LUTS) N40.1 Memory impairment of gradual onset R41.3 Hypothyroidism E03.9
[2024-06-14] MEDS: ACETAMINOPHEN 325 MG TAB PO PRN (05:36)
[2024-06-14 07:50] LABS: BUN Creatinine Ratio 47.8 (10-20); Calcium 8.5 mg/dl (8.6-10.3); Creatinine Clr Calc Pharmacy 81.2 ml/min; Potassium 3.9 mmol/L (3.5-5.1)
--- NOTE | 2024-06-14 18:49 | Hospitalist Progress Note ---
Date of Service June 14, 2024 Assessment & Plan (1) Influenza A: Plan: 78-year-old male PMHx aortic stenosis, BPH, hypothyroidism, HTN, dyslipidemia, and OP who presents to ED for recurrent falls with reported dizziness/weakness and fell to ground. No LOC/head trauma, but family reporting unsafe at home/living environment and unable to care for him. Concern for malnourishment as patient only eating maybe one meal daily at home. CT head negative on admission, CXR initially negative for acute process, but repeat CXR revealed right mid and lower lobe pneumonia. - Positive influenza A testing on admission, placed on Tamiflu and has been continued - Tylenol available as needed - PT/OT recommending SNF, referrals pending. NOT SAFE FOR RETURN HOME w/ family concerns/living environment (2) Pneumonia: Plan: Repeated CXR because of increased cough, wheezing, rales on exam with elevated procal - CXR revealed right mid and lower lobe opacities - Continue Zosyn for superimposed bacterial pneumonia - Supplemental O2 as needed to maintain sats -- has been stable on RA - Tessalon pearls for cough - Pulmonary toilet, Mucinex BID added - Blood cultures were obtained from admission and remain NGTD - Speech consulted as CXR was suspicious for silent aspiration. Video swallow study completed with no signs of aspiration or significant pharyngeal retention. He has signs and symptoms suspicious for esophageal dysmotility. > Recommends alternating solids and liquids, head of bed 30 degrees at all times, upright with meals and for 30 minutes after (3) Hyponatremia: Plan: Acute on chronic hyponatremia. TSH wnl - Given IV fluids on admission, with worsened hyponatremia - Urine Na HIGH 220s, not on diuretics/SSRI/benzos--> suspect SIADH. Also increased urine osm 800s, serum osm 269 - Liberalized diet to regular; initially placed on fluid restriction which has since been removed with improving sodium levels - Started/continued on urea BID with improvement in sodium levels See prior note, cortisol level elevated 30s- ?2nd malnourishment prior to admission w/ improvement on repeat but ACTH sent/pending. Has been seen by Dr Moyer in the past (4) Recurrent falls: Plan: Ongoing falls x months, per family. Pt denied symptoms prior to falls and no pain. Family stated the pt was complaining of back pain after sliding down stairs ~ 4 days ago then patient admits that he has some back pain. No tenderness to palpation of spine, some tenderness to palpation mid-lower paraspinal muscles, no areas of ecchymosis or open wounds. - CT thoracic/lumbar spine without acute fx/subluxation - Heating pad/Tylenol available - Lisinopril as below, would likely NOT resume at dc (5) Benign hypertension: Plan: Hx such, was on lisinopril/amlodipine which were held last admission and resumed low dose lisinopril in f/u but as above has been increased for BP in office but SUSPECT elevations from dehydration/compensatory response suspect NOT best medication for him, especially as has been doubled from 5mg--> 10mg --> 20mg daily by PCP w/ +orthostatic VS last admission. Reviewed vital signs /3 -- Blood pressures have been stable since placing lisinopril on hold --> WOULD NOT RESUME LISINOPRIL AT DC (6) Benign localized prostatic hyperplasia with lower urinary tract symptoms (LUTS): Plan: Retention x 2, schafer placed overnight 06/08 Flomax/proscar continued. ?2nd to constipation. +BM 06/08 on colacce BID. UA no bacteria, no fever/sx reported Plan for voiding trial in AM vs prior to dc pending ambulation status (7) Memory impairment of gradual onset: Plan: suspect fatigue 2nd to above is alert to person/time, intermittent to place and event sleep/wake schedules encouraged tsh/b12 wnl Hx dementia and remains on donepezil/memantine. TSH/B12 wnl. Mental status appears stable/improved (8) Hypothyroidism: Plan: Prior elevations w/ syncopal episodes req admission this year and checked repeat TSH which was normal. Continues current dose Synthroid at this time. Outpt f/u Dr Moyer as previously following. F/u Holter monitor results from last admission as available as daughter reported they were done but haven't heard back Plan DVT proph: Lovenox SQ CODE STATUS: Full code Dispo: continued inpatient stay, continues on tamiflu/zosyn for flu/bacterial pneumonia. Waiting for rehab placement; referrals pending at [facility] Admission and Anticipated Discharge Date Admission Date: June 07, 2024 Subjective Patient seen and evaluated at bedside. He reports intermittent dry cough but notes this is improving. He denies any shortness of breath at this time. He remains intermittently disoriented but is redirectable. Continue to wait for rehab placement. Physical Exam Physical Exam: General: No acute distress, nondiaphoretic, well-developed, well-nourished. Skin: The skin was without rashes, erythema, edema, or bruising. Cardiac: Regular rate and rhythm. Systolic murmur noted. Pulm: Diminished in bases bilaterally but otherwise clear to auscultation without wheezes, rales, rhonchi. No respiratory distress. 96% on room air. Abdominal: Soft, nontender, nondistended. Bowel sounds present. : Schafer draining yellow urine. Neuro: A&O x2 (person and time, not place or event). No focal neurological deficits. Results & Data Results & Data Vital Signs (Past 12 Hours) Vital Signs Temp Pulse Resp BP Pulse Ox O2 Del Method 06/14/24 14:48 97.0 F L 83 20 121/68 96 Room Air 06/14/24 07:58 97.3 F L 60 16 139/77 95 Room Air 06/14/24 07:25 Room Air Laboratory Results Reviewed BMP PG Care Time/CCT Total # of Minutes Spent Total Time Spent with Patient: Total time spent is greater than 50% in coordination of care (as documented) at patient's floor/unit and/or counseling patient: Coding Level of Care Code 64620 SUB INP/OBS CARE 2/35MIN Diagnoses Influenza A J10.1 Pneumonia J18.9 Hyponatremia E87.1 Recurrent falls R29.6 Benign hypertension I10 Benign localized prostatic hyperplasia with lower urinary tract symptoms (LUTS) N40.1 Memory impairment of gradual onset R41.3 Hypothyroidism E03.9
--- NOTE | 2024-06-15 09:11 | Hospitalist Progress Note ---
Date of Service June 15, 2024 Assessment & Plan (1) Influenza A: Plan: 78-year-old male PMHx aortic stenosis, BPH, hypothyroidism, HTN, dyslipidemia, and OP who presents to ED for recurrent falls with reported dizziness/weakness and fell to ground. No LOC/head trauma, but family reporting unsafe at home/living environment and unable to care for him. Concern for malnourishment as patient only eating maybe one meal daily at home. CT head negative on admission, CXR initially negative for acute process, but repeat CXR revealed right mid and lower lobe pneumonia. - Positive influenza A testing on admission, completed course of Tamiflu while inpatient - Tylenol available as needed - PT/OT recommending SNF, referrals pending. NOT SAFE FOR RETURN HOME w/ family concerns/living environment (2) Pneumonia: Plan: Repeated CXR because of increased cough, wheezing, rales on exam with elevated procal - CXR revealed right mid and lower lobe opacities - Completed treatment with Zosyn for superimposed bacterial pneumonia - Supplemental O2 as needed to maintain sats -- has been stable on RA - Tessalon pearls for cough - Pulmonary toilet, Mucinex PRN for congestion - Blood cultures were obtained from admission and remain NGTD - Speech consulted as CXR was suspicious for silent aspiration. Video swallow study completed with no signs of aspiration or significant pharyngeal retention. He has signs and symptoms suspicious for esophageal dysmotility. > Recommends alternating solids and liquids, head of bed 30 degrees at all times, upright with meals and for 30 minutes after (3) Benign localized prostatic hyperplasia with lower urinary tract symptoms (LUTS): Plan: Retention x 2, schafer placed overnight 06/08/24 Flomax/proscar continued UA no bacteria, no fever/sx reported Removed Schafer, voiding trial 06/15/24 - bladder scan PRN and straight cath PRN for retention (4) Hyponatremia: Plan: Acute on chronic hyponatremia. TSH wnl - Given IV fluids on admission, with worsened hyponatremia - Urine Na HIGH 220s, not on diuretics/SSRI/benzos--> suspect SIADH. Also increased urine osm 800s, serum osm 269 - Liberalized diet to regular; initially placed on fluid restriction which has since been removed with improving sodium levels - Started/continued on urea BID with improvement in sodium levels See prior note, cortisol level elevated 30s- ?2nd malnourishment prior to admission w/ improvement on repeat and ACTH WNL this admission. Has been seen by Dr Moyer in the past (5) Recurrent falls: Plan: Ongoing falls x months, per family. Pt denied symptoms prior to falls and no pain. Family stated the pt was complaining of back pain after sliding down stairs ~ 4 days ago then patient admits that he has some back pain. No tenderness to palpation of spine, some tenderness to palpation mid-lower paraspinal muscles, no areas of ecchymosis or open wounds. - CT thoracic/lumbar spine without acute fx/subluxation - Heating pad/Tylenol available - Lisinopril as below, would likely NOT resume at dc (6) Benign hypertension: Plan: Hx such, was on lisinopril/amlodipine which were held last admission and resumed low dose lisinopril in f/u but as above has been increased for BP in office but SUSPECT elevations from dehydration/compensatory response suspect NOT best medication for him, especially as has been doubled from 5mg--> 10mg --> 20mg daily by PCP w/ +orthostatic VS last admission. Reviewed vital signs 06/15 -- Blood pressures have been stable since placing lisinopril on hold --> WOULD NOT RESUME LISINOPRIL AT DC (7) Memory impairment of gradual onset: Plan: suspect fatigue 2nd to above is alert to person/time, intermittent to place and event sleep/wake schedules encouraged tsh/b12 wnl Hx dementia and remains on donepezil/memantine (8) Hypothyroidism: Plan: Prior elevations w/ syncopal episodes req admission this year and checked repeat TSH which was normal Continue current dose Synthroid Outpt f/u Dr Moyer as previously following Plan Removed Schafer, ordered straight cath PRN Mucinex adjusted to PRN DVT proph: Lovenox SQ CODE STATUS: Full code Dispo: continued inpatient stay, continues on tamiflu/zosyn for flu/bacterial pneumonia. Waiting for rehab placement; referrals pending at [facility] Admission and Anticipated Discharge Date Admission Date: June 07, 2024 Subjective Patient seen and evaluated at bedside. He states that he has to have a bowel movement, but denies any acute medical concerns or complaints at this time. He had his Schafer catheter removed this morning around 1100 and is not independently voided yet. RN reports patient continues to climb out of bed in the afternoon stating that he has to pee, but still has not voided. Straight cath as needed. Physical Exam Physical Exam: General: No acute distress, nondiaphoretic, well-developed, well-nourished. Skin: The skin was without rashes, erythema, edema, or bruising. Cardiac: Regular rate and rhythm. Systolic murmur noted. Pulm: Diminished in bases bilaterally but otherwise clear to auscultation without wheezes, rales, rhonchi. No respiratory distress. 96% on room air. Abdominal: Soft, nontender. Slightly distended. Bowel sounds present. Neuro: A&O x2 (person and time, not place or event). No focal neurological deficits. Results & Data Results & Data Vital Signs (Past 12 Hours) Vital Signs Temp Pulse Resp BP Pulse Ox O2 Del Method 06/15/24 07:57 97.0 F L 79 18 165/71 H 97 Room Air PG Care Time/CCT Total # of Minutes Spent Total Time Spent with Patient: Total time spent is greater than 50% in coordination of care (as documented) at patient's floor/unit and/or counseling patient: Coding Level of Care Code 73722 SUB INP/OBS CARE 3/50MIN Diagnoses Influenza A J10.1 Pneumonia J18.9 Benign localized prostatic hyperplasia with lower urinary tract symptoms (LUTS) N40.1 Hyponatremia E87.1 Recurrent falls R29.6 Benign hypertension I10 Memory impairment of gradual onset R41.3 Hypothyroidism E03.9
[2024-06-15] MEDS: POLYETHYLENE (MIRALAX) 17 GM PACK PO PRN (13:34)
[2024-06-15] MEDS ORDERED: guaiFENesin 600 MG TABCR PO PRN (21:00)
--- NOTE | 2024-06-16 09:24 | Hospitalist Progress Note ---
Date of Service June 16, 2024 Assessment & Plan (1) Influenza A: Plan: 78-year-old male PMHx aortic stenosis, BPH, hypothyroidism, HTN, dyslipidemia, and OP who presents to ED for recurrent falls with reported dizziness/weakness and fell to ground. No LOC/head trauma, but family reporting unsafe at home/living environment and unable to care for him. Concern for malnourishment as patient only eating maybe one meal daily at home. CT head negative on admission, CXR initially negative for acute process, but repeat CXR revealed right mid and lower lobe pneumonia. - Positive influenza A testing on admission, completed course of Tamiflu while inpatient - Tylenol available as needed - PT/OT recommending SNF, referrals pending. NOT SAFE FOR RETURN HOME w/ family concerns/living environment (2) Pneumonia: Plan: Repeated CXR because of increased cough, wheezing, rales on exam with elevated procal - CXR revealed right mid and lower lobe opacities - Completed treatment with Zosyn for superimposed bacterial pneumonia; remains stable on room air - Tessalon pearls for cough, Pulmonary toilet, Mucinex PRN for congestion - Speech consulted as CXR was suspicious for silent aspiration. Video swallow study completed with no signs of aspiration or significant pharyngeal retention. He has signs and symptoms suspicious for esophageal dysmotility. > Recommends alternating solids and liquids, head of bed 30 degrees at all times, upright with meals and for 30 minutes after (3) Benign localized prostatic hyperplasia with lower urinary tract symptoms (LUTS): Plan: Retention x 2, schafer placed overnight 06/08/24 Flomax/proscar continued UA no bacteria, no fever/sx reported Removed Schafer 06/15/24 - bladder scan PRN and straight cath PRN for retention (4) Hyponatremia: Plan: Acute on chronic hyponatremia. TSH wnl - Given IV fluids on admission, with worsened hyponatremia - Urine Na HIGH 220s, not on diuretics/SSRI/benzos--> suspect SIADH. Also increased urine osm 800s, serum osm 269 - Liberalized diet to regular; initially placed on fluid restriction which has since been removed with improving sodium levels - Started/continued on urea BID with improvement in sodium levels See prior note, cortisol level elevated 30s- ?2nd malnourishment prior to admission w/ improvement on repeat and ACTH WNL this admission. Has been seen by Dr Moyer in the past (5) Recurrent falls: Plan: Ongoing falls x months, per family. Pt denied symptoms prior to falls and no pain. Family stated the pt was complaining of back pain after sliding down stairs ~ 4 days ago then patient admits that he has some back pain. No tenderness to palpation of spine, some tenderness to palpation mid-lower paraspinal muscles, no areas of ecchymosis or open wounds. - CT thoracic/lumbar spine without acute fx/subluxation - Heating pad/Tylenol available - Lisinopril as below, would likely NOT resume at dc (6) Benign hypertension: Plan: Hx such, was on lisinopril/amlodipine which were held last admission and resumed low dose lisinopril in f/u but as above has been increased for BP in office but SUSPECT elevations from dehydration/compensatory response suspect NOT best medication for him, especially as has been doubled from 5mg--> 10mg --> 20mg daily by PCP w/ +orthostatic VS last admission. Reviewed vital signs 06/16 -- Blood pressures intermittently slightly elevated but overall well-controlled --> WOULD NOT RESUME LISINOPRIL AT DC (7) Memory impairment of gradual onset: Plan: suspect fatigue 2nd to above is alert to person/time, intermittent to place and event sleep/wake schedules encouraged tsh/b12 wnl Hx dementia and remains on donepezil/memantine (8) Hypothyroidism: Plan: Prior elevations w/ syncopal episodes req admission this year and checked repeat TSH which was normal Continue current dose Synthroid Outpt f/u Dr Moyer as previously following Plan DVT proph: Lovenox SQ CODE STATUS: Full code Dispo: continued inpatient stay, while awaiting rehab placement; referrals pending at [facility] Admission and Anticipated Discharge Date Admission Date: June 07, 2024 Subjective Patient seen and evaluated in bedside chair. He is intermittently more confused at times than others, but is redirectable. He denies any acute complaints or concerns at this time. He happily tells me about his chocolate chip cookie from lunch. Per RN, patient has been incontinent of both urine and stool today. No additional complaints or concerns at this time. Physical Exam Physical Exam: General: No acute distress, nondiaphoretic, well-developed, well-nourished. Skin: The skin was without rashes, erythema, edema, or bruising. Cardiac: Regular rate and rhythm. Systolic murmur noted. Pulm: Diminished in bases bilaterally but otherwise clear to auscultation without wheezes, rales, rhonchi. No respiratory distress. 98% on room air. Abdominal: Soft, nontender, nondistended. Bowel sounds present. Neuro: A&O x2 (person and time, not place or event). No focal neurological deficits. Results & Data Results & Data Vital Signs (Past 12 Hours) Vital Signs Temp Pulse Resp BP Pulse Ox O2 Del Method 06/16/24 07:24 97.7 F 74 16 148/75 H 96 Room Air PG Care Time/CCT Total # of Minutes Spent Total Time Spent with Patient: Total time spent is greater than 50% in coordination of care (as documented) at patient's floor/unit and/or counseling patient: Coding Level of Care Code 72726 SUB INP/OBS CARE 07/05MIN Diagnoses Influenza A J10.1 Pneumonia J18.9 Benign localized prostatic hyperplasia with lower urinary tract symptoms (LUTS) N40.1 Hyponatremia E87.1 Recurrent falls R29.6 Benign hypertension I10 Memory impairment of gradual onset R41.3 Hypothyroidism E03.9
[2024-06-16] MEDS: BENZONATATE 100 MG CAPSULE PO PRN (21:26)
--- NOTE | 2024-06-17 08:50 | Hospitalist Progress Note ---
Date of Service June 17, 2024 Assessment & Plan (1) Influenza A: Plan: 78-year-old male PMHx aortic stenosis, BPH, hypothyroidism, HTN, dyslipidemia, and OP who presents to ED for recurrent falls with reported dizziness/weakness and fell to ground. No LOC/head trauma, but family reporting unsafe at home/living environment and unable to care for him. Concern for malnourishment as patient only eating maybe one meal daily at home. CT head negative on admission, CXR initially negative for acute process, but repeat CXR revealed right mid and lower lobe pneumonia. Positive influenza A testing on admission, completed course of Tamiflu while inpatient IMPROVED/RESOLVED - Tylenol available as needed - PT/OT recommending SNF, referrals pending. NOT SAFE FOR RETURN HOME w/ family concerns/living environment. CM following and [facility] when bed available (2) Pneumonia: Plan: Repeated CXR because of increased cough, wheezing, rales on exam with elevated procal CXR revealed right mid and lower lobe opacities Completed treatment with Zosyn for superimposed bacterial pneumonia; remains stable on room air Tessalon pearls for cough, Pulmonary toilet, Mucinex PRN for congestion Speech consulted as CXR was suspicious for silent aspiration. Video swallow study completed with no signs of aspiration or significant pharyngeal retention. He has signs and symptoms suspicious for esophageal dysmotility. > Recommends alternating solids and liquids, head of bed 30 degrees at all times, upright with meals and for 30 minutes after (3) Benign localized prostatic hyperplasia with lower urinary tract symptoms (LUTS): Plan: Retention x 2, schafer placed overnight 06/08/24 Flomax/proscar continued UA no bacteria, no fever/sx reported Removed Schafer 06/15/24 - bladder scan PRN and straight cath PRN for retention (4) Hyponatremia: Plan: Acute on chronic hyponatremia. TSH wnl - Given IV fluids on admission, with worsened hyponatremia - Urine Na HIGH 220s, not on diuretics/SSRI/benzos--> suspect SIADH. Also increased urine osm 800s, serum osm 269 - Liberalized diet to regular; initially placed on fluid restriction which has since been removed with improving sodium levels - Started/continued on urea BID with improvement in sodium levels See prior note, cortisol level elevated 30s- ?2nd malnourishment prior to admission w/ improvement on repeat and ACTH WNL this admission. Has been seen by Dr Moyer in the past Na 130, will repeat urine Na/serum osm w/ AM labs to see if needing to add back fluid restriction given copious PO intake this morning (5) Recurrent falls: Plan: Ongoing falls x months, per family. Pt denied symptoms prior to falls and no pain. Family stated the pt was complaining of back pain after sliding down stairs ~ 4 days ago then patient admits that he has some back pain. No tenderness to palpation of spine, some tenderness to palpation mid-lower paraspinal muscles, no areas of ecchymosis or open wounds. - CT thoracic/lumbar spine without acute fx/subluxation - Heating pad/Tylenol available - Lisinopril as below, would likely NOT resume at dc (6) Benign hypertension: Plan: Hx such, was on lisinopril/amlodipine which were held last admission and resumed low dose lisinopril in f/u but as above has been increased for BP in office but SUSPECT elevations from dehydration/compensatory response suspect NOT best medication for him, especially as has been doubled from 5mg--> 10mg --> 20mg daily by PCP w/ +orthostatic VS last admission. Reviewed vital signs 06/17 -- Blood pressures intermittently slightly elevated but overall well-controlled --> WOULD NOT RESUME LISINOPRIL AT DC (7) Memory impairment of gradual onset: Plan: suspect fatigue 2nd to above is alert to person/time, intermittent to place and event sleep/wake schedules encouraged tsh/b12 wnl Hx dementia and remains on donepezil/memantine (8) Hypothyroidism: Plan: Prior elevations w/ syncopal episodes req admission this year and checked repeat TSH which was normal Continue current dose Synthroid Outpt f/u Dr Moyer as previously following Plan DVT proph: Lovenox SQ CODE STATUS: Full code Dispo: continued inpatient stay, while awaiting rehab placement; referrals pending at [facility] and [facility]. Hopefully bed next 24hrs Admission and Anticipated Discharge Date Admission Date: June 07, 2024 Supervising Physician Co-Signing Physician Notes The patient was not seen by me. The chart was reviewed. Case discussed with TEODORO Juarez. Agree with assessment and plan Subjective Eval this morning, resting in bed. Did have to straight cath x 1 for retention but incontinent this morning/monitoring. Patient appears much improved from respiratory standpoint, no further coughing, 99% on RA. Patient reports being in hospital, [place], pleasant confusion at times but much better than last week. He is inquiring when he will be strong enough to get out of here - discussed hopefully next 1-2 days but needing bed for rehab. Per nursing, drinking copious fluids this morning, will monitor to fluid restrict again as needed. Last BM 1/6 following laxative pRN. Denies fever/chills, no CP/SOB. No nausea/vomiting. Questions/concerns addressed at this time. Physical Exam Physical Exam: General: fatigued appearing but IMPROVE from last week, no further cough HEENT head atraumatic, normocephalic, mm improved, trachea midline Resp: air entry improved bilaterally, bibasilar crackles but no rales/wheezing, 99% on RA CV: RRR, +systolic murmur but no pitting edema, calves nontender GI: +BS, soft/NT : no further schafer MSK/Neuro/Psych; alert to person, place (knows in [place]ep/initially reported [place]), intermittent to events but cooperative, nonfocal, able to follow commands as asked Results & Data Results & Data Vital Signs (Past 12 Hours) Vital Signs Temp Pulse Resp BP Pulse Ox O2 Del Method 06/17/24 07:58 36.5 C 66 16 146/82 H 99 Room Air PG Care Time/CCT Total # of Minutes Spent Total Time Spent with Patient: Total time spent is greater than 50% in coordination of care (as documented) at patient's floor/unit and/or counseling patient: Coding Level of Care Code 80547 SUB INP/OBS CARE 2/35MIN Diagnoses Influenza A J10.1 Pneumonia J18.9 Benign localized prostatic hyperplasia with lower urinary tract symptoms (LUTS) N40.1 Hyponatremia E87.1 Recurrent falls R29.6 Benign hypertension I10 Memory impairment of gradual onset R41.3 Hypothyroidism E03.9
--- NOTE | 2024-06-18 08:11 | Hospitalist Progress Note ---
Date of Service June 18, 2024 Assessment & Plan (1) Influenza A: Plan: 78-year-old male PMHx aortic stenosis, BPH, hypothyroidism, HTN, dyslipidemia, and OP who presents to ED for recurrent falls with reported dizziness/weakness and fell to ground. No LOC/head trauma, but family reporting unsafe at home/living environment and unable to care for him. Concern for malnourishment as patient only eating maybe one meal daily at home. CT head negative on admission, CXR initially negative for acute process, but repeat CXR revealed right mid and lower lobe pneumonia. Positive influenza A testing on admission, completed course of Tamiflu while inpatient IMPROVED/RESOLVED Tylenol available as needed PT/OT recommending SNF, referrals pending. CM following and [facility] when bed available. NOT SAFE FOR RETURN HOME w/ family concerns/living environment. (2) Pneumonia: Plan: Suspected bacterial pna following viral pneumonia with elevated procal/wheezing/rales on exam with O2 requirement. Completed course of tx with Zosyn, on room air/remains on room air Continue pulmonary toilet Speech saw/video swallow without signs aspiration. Does have s/sx suspicious for esophageal dysmotility.. Speech rec alternating solids/liquids/HOB elevation and upright with meals/30min after. Continues on aspiration precautions, tolerating diet without issue (3) Benign localized prostatic hyperplasia with lower urinary tract symptoms (LUTS): Plan: Retention x 2, schafer placed overnight 06/08/24 and removed 06/15 and has been continued on flomax/proscar Monitor for urinary retention (4) Hyponatremia: Plan: Acute on chronic hyponatremia. TSH wnl IVF on admission w/ worsened hyponatremia. 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 ACTH sent and wnl. Seen by Dr Moyer in the past. Continue urea BID, monitor BMP in AM (5) Recurrent falls: Plan: Ongoing falls x months, per family. Pt denied symptoms prior to falls and no pain. Family stated the pt was complaining of back pain after sliding down stairs ~ 4 days ago then patient admits that he has some back pain. No tenderness to palpation of spine, some tenderness to palpation mid-lower paraspinal muscles, no areas of ecchymosis or open wounds. CT thoracic/lumbar spine without acute fx/subluxation Heating pad/Tylenol available Lisinopril as below, would likely NOT resume at dc Needs f/u on holter monitor results from last month as reported done by daughter on admission but never heard results (6) Benign hypertension: Plan: See prior notes, hx orthostatic hypotension and was DISCONTINUED last admission (+orthostatic VS) but resumed 5mg by PCP--> 10mg-> 20mg and w/ PETER on admission w/ underlying aortic stenosis suspect contributes to falls Lisinopril STOPPED, would dc at dc and BPs have been STABLE OFF. (7) Memory impairment of gradual onset: Plan: suspect fatigue 2nd to above is alert to person/time, intermittent to place and event sleep/wake schedules encouraged tsh/b12 wnl Hx dementia and remains on donepezil/memantine could sent for B1, but not on diuretics/no drinking hx. (8) Hypothyroidism: Plan: Prior elevations w/ syncopal episodes req admission this year and checked repeat TSH which was normal Continue current dose Synthroid Outpt f/u Dr Moyer as previously following Plan DVT proph: Lovenox SQ while inpatient Dispo: continued inpatient stay, fluid restriction resumed and monitoring BMP on continued urea. Ongoing placement for SNF, hopefully [facility] with bed this week, CM folowing and [facility] to let us know when available as have offered [facility] a bed. Admission and Anticipated Discharge Date Admission Date: June 07, 2024 Supervising Physician Co-Signing Physician Notes The patient was not seen by me. The chart was reviewed. Case discussed with TEODORO Juarez. Agree with assessment and plan Subjective Eval around lunch, sitting up in chair eating lunch. Occasional cough but no significant shortness of breath. No fevers, on room air. Drinking copious fluids, discussed limiting free water given susp SIADH. Ongoing waiting for rehab. No CP/nausea/vomiting. +BM Awaiting rehab prior to returning home. Physical Exam 2 Physical Exam: General: fatigued appearing but IMPROVED from last week, occasional cough but 97% on RA, no tachypnea/distress HEENT head atraumatic, normocephalic, mm slightly dry, trachea midline Resp: air entry improved bilaterally, bibasilar crackles but no rales/wheezing, on RA CV: RRR, +systolic murmur but no pitting edema, calves nontender GI: +BS, soft/NT : no further schafer MSK/Neuro/Psych; alert to person, place in hospital but pleasant dementia, cooperative with exam Results & Data Results & Data Vital Signs (Past 12 Hours) Vital Signs Temp Pulse Resp BP Pulse Ox O2 Del Method 06/18/24 07:12 36.9 C 84 18 127/71 95 Room Air 06/17/24 20:35 Room Air Laboratory Results 06/12/24 06:41 06/18/24 07:56 Mag 2.1 Osm serum 275 Urine Na 50 PG Care Time/CCT Total # of Minutes Spent Total Time Spent with Patient: Total time spent is greater than 50% in coordination of care (as documented) at patient's floor/unit and/or counseling patient: Coding Level of Care Code 99813 SUB INP/OBS CARE 3/50MIN Diagnoses Influenza A J10.1 Pneumonia J18.9 Benign localized prostatic hyperplasia with lower urinary tract symptoms (LUTS) N40.1 Hyponatremia E87.1 Recurrent falls R29.6 Benign hypertension I10 Memory impairment of gradual onset R41.3 Hypothyroidism E03.9
[2024-06-18 08:36] LABS: Calcium 8.6 mg/dl (8.6-10.3); Creatinine Clr Calc Pharmacy 90.3 ml/min; Magnesium 2.1 mg/dl (1.7-2.4); Potassium 4.3 mmol/L (3.5-5.1)
[2024-06-19 08:27] LABS: BUN Creatinine Ratio 31.3 (10-20); Creatinine Clr Calc Pharmacy 87.5 ml/min; Potassium 4.4 mmol/L (3.5-5.1)
--- NOTE | 2024-06-19 08:50 | Hospitalist Progress Note ---
Date of Service June 19, 2024 Assessment & Plan (1) Influenza A: Plan: 78-year-old male PMHx aortic stenosis, BPH, hypothyroidism, HTN, dyslipidemia, and OP who presents to ED for recurrent falls with reported dizziness/weakness and fell to ground. No LOC/head trauma, but family reporting unsafe at home/living environment and unable to care for him. Concern for malnourishment as patient only eating maybe one meal daily at home. CT head negative on admission, CXR initially negative for acute process, but repeat CXR revealed right mid and lower lobe pneumonia. Positive influenza A testing on admission, completed course of Tamiflu while inpatient IMPROVED/RESOLVED Tylenol available as needed PT/OT recommending SNF, CM following and [facility] when bed available as NOT SAFE FOR RETURN HOME w/ family concerns/living environment. (2) Hyponatremia: Plan: Acute on chronic hyponatremia. TSH wnl IVF on admission w/ worsened hyponatremia. 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 ACTH sent and wnl. Seen by Dr Moyer in the past. 06/19--Net negative on I&O last 24 hours with fluid restriction, Na improved to 130 from 129 and will continue fluid restriction for now Continue urea BID, monitor BMP in AM (3) Pneumonia: Plan: Suspected bacterial pna following viral pneumonia with elevated procal/wheezing/rales on exam with O2 requirement. Completed course of tx with Zosyn, on room air/remains on room air Continue pulmonary toilet Speech saw/video swallow without signs aspiration. Does have s/sx suspicious for esophageal dysmotility.. Speech rec alternating solids/liquids/HOB elevation and upright with meals/30min after. Continues on aspiration precautions, tolerating diet without issue and remains on ROOM AIR (4) Benign localized prostatic hyperplasia with lower urinary tract symptoms (LUTS): Plan: Retention x 2, schafer placed overnight 06/08/24 and removed 06/15 and has been continued on flomax/proscar Monitor for urinary retention (5) Recurrent falls: Plan: Ongoing falls x months, per family. Pt denied symptoms prior to falls and no pain. Family stated the pt was complaining of back pain after sliding down stairs ~ 4 days ago then patient admits that he has some back pain. No tenderness to palpation of spine, some tenderness to palpation mid-lower paraspinal muscles, no areas of ecchymosis or open wounds. CT thoracic/lumbar spine without acute fx/subluxation Heating pad/Tylenol available Lisinopril as below, would likely NOT resume at dc Needs f/u on holter monitor results from last month as reported done by daughter on admission but never heard results (6) Benign hypertension: Plan: See prior notes, hx orthostatic hypotension and was DISCONTINUED last admission (+orthostatic VS) but resumed 5mg by PCP--> 10mg-> 20mg and w/ PETER on admission w/ underlying aortic stenosis suspect contributes to falls Lisinopril STOPPED, would dc at dc and BPs have been STABLE OFF. (7) Memory impairment of gradual onset: Plan: suspect fatigue 2nd to above is alert to person/time, intermittent to place and event sleep/wake schedules encouraged tsh/b12 wnl Hx dementia and remains on donepezil/memantine B1 sent, started 100mg PO daily and can f/u on B1 level at dc if not back. No hx alcohol use but given dementia using empiric (8) Hypothyroidism: Plan: Prior elevations w/ syncopal episodes req admission this year and checked repeat TSH which was normal Continue current dose Synthroid Outpt f/u Dr Moyer as previously following Plan DVT proph: Lovenox SQ while inpatient Dispo: continued inpatient stay, fluid restriction resumed/continued given improvement in Na and will continue urea/monitor. Would continue urea at dc/regular diet, liberalize salt. Lisinopril to be stopped and Bps have been stable. Orthostatic VS if able to obtain but denies dizziness at this time. CM following as recs for SNF, [facility] accepted but waiting on bed confirmation and can arrange transportation when bed confirmed Admission and Anticipated Discharge Date Admission Date: June 07, 2024 Supervising Physician Co-Signing Physician Notes The patient was not seen by me. The chart was reviewed. Case discussed with TEODORO Juarez. Agree with assessment and plan Subjective Eval this afternoon, sitting up in bed. Appears much better, waiting for rehab. No SOB, on room air. Fluid restriction resumed, Na improved on labs and will continue for now. Mentation appears better too, knows in hospital, year 2024 and when asked month he said "it should be June". Support provided, plan for rehab once bed secured. Questions/concerns addressed at this time. Physical Exam 2 Physical Exam: General: fatigued appearing but IMPROVED from last week and appears better than day prior, occasional cough but 97% on RA, no tachypnea/distress HEENT head atraumatic, normocephalic, mm slightly dry, trachea midline Resp: air entry improved bilaterally, bibasilar crackles but no rales/wheezing, on RA CV: RRR, +systolic murmur but no pitting edema, calves nontender GI: +BS, soft/NT : no further schafer MSK/Neuro/Psych; alert to person, place in hospital, year/month, pleasant dementia, cooperative with exam Results & Data Results & Data Vital Signs (Past 12 Hours) Vital Signs Temp Pulse Resp BP Pulse Ox O2 Del Method 06/19/24 07:11 37.1 C 78 16 126/67 94 Room Air Laboratory Results 06/12/24 06:41 06/19/24 07:25 PG Care Time/CCT Total # of Minutes Spent Total Time Spent with Patient: Total time spent is greater than 50% in coordination of care (as documented) at patient's floor/unit and/or counseling patient: Coding Level of Care Code 19360 SUB INP/OBS CARE 2/35MIN Diagnoses Influenza A J10.1 Hyponatremia E87.1 Pneumonia J18.9 Benign localized prostatic hyperplasia with lower urinary tract symptoms (LUTS) N40.1 Recurrent falls R29.6 Benign hypertension I10 Memory impairment of gradual onset R41.3 Hypothyroidism E03.9
[2024-06-19] MEDS: THIAMINE HCL 100 MG TAB PO SCH (10:27)
--- NOTE | 2024-06-20 08:28 | Hospitalist Progress Note ---
Date of Service June 20, 2024 Assessment & Plan (1) Influenza A: Plan: 78-year-old male PMHx aortic stenosis, BPH, hypothyroidism, HTN, dyslipidemia, and OP who presents to ED for recurrent falls with reported dizziness/weakness and fell to ground. No LOC/head trauma, but family reporting unsafe at home/living environment and unable to care for him. Concern for malnourishment as patient only eating maybe one meal daily at home. CT head negative on admission, CXR initially negative for acute process, but repeat CXR revealed right mid and lower lobe pneumonia. Positive influenza A testing on admission, completed course of Tamiflu while inpatient IMPROVED/RESOLVED Tylenol available as needed PT/OT recommending SNF, CM following and [facility] when bed available as NOT SAFE FOR RETURN HOME w/ family concerns/living environment. (2) Hyponatremia: Plan: Acute on chronic hyponatremia. TSH wnl IVF on admission w/ worsened hyponatremia. 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 ACTH sent and wnl. Seen by Dr Moyer in the past. 06/18 was having copious fluid intake, Na 129 and resumed fluid restriction w/ improvement to 130 on repeat labs however appearing dry on exam 06/20 and removed fluid restriction and adding 1gm NaCL/given 129/push fluids (w/ solute) will monitor on repeat but continue urea BID (3) Pneumonia: Plan: Suspected bacterial pna following viral pneumonia with elevated procal/wheezing/rales on exam with O2 requirement. Completed course of tx with Zosyn, on room air/remains on room air Continue pulmonary toilet Speech saw/video swallow without signs aspiration. Does have s/sx suspicious for esophageal dysmotility.. Speech rec alternating solids/liquids/HOB elevation and upright with meals/30min after. Continues on aspiration precautions, tolerating diet without issue and remains on ROOM AIR (4) Benign localized prostatic hyperplasia with lower urinary tract symptoms (LUTS): Plan: Retention x 2, schafer placed overnight 06/08/24 and removed 06/15 and has been continued on flomax/proscar Monitor for urinary retention (5) Recurrent falls: Plan: Ongoing falls x months, per family. Pt denied symptoms prior to falls and no pain. Family stated the pt was complaining of back pain after sliding down stairs ~ 4 days ago then patient admits that he has some back pain. No tenderness to palpation of spine, some tenderness to palpation mid-lower paraspinal muscles, no areas of ecchymosis or open wounds. CT thoracic/lumbar spine without acute fx/subluxation Heating pad/Tylenol available Lisinopril as below, would likely NOT resume at dc Needs f/u on holter monitor results from last month as reported done by daughter on admission but never heard results (6) Benign hypertension: Plan: See prior notes, hx orthostatic hypotension and was DISCONTINUED last admission (+orthostatic VS) but resumed 5mg by PCP--> 10mg-> 20mg and w/ PETER on admission w/ underlying aortic stenosis suspect contributes to falls Lisinopril STOPPED, would dc at dc and BPs have been STABLE OFF. (7) Memory impairment of gradual onset: Plan: suspect fatigue 2nd to above is alert to person/time, intermittent to place and event sleep/wake schedules encouraged tsh/b12 wnl Hx dementia and remains on donepezil/memantine B1 sent, started 100mg PO daily and can f/u on B1 level at dc if not back. No hx alcohol use but given dementia using empiric (8) Hypothyroidism: Plan: Prior elevations w/ syncopal episodes req admission this year and checked repeat TSH which was normal Continue current dose Synthroid Outpt f/u Dr Moyer as previously following Plan DVT proph: Lovenox SQ while inpatient Dispo: continued inpatient stay waiting placement. Seeing if 1gm NaCL effective for hyponatremia/fluid restriction removed CM following, for [facility] when bed available Admission and Anticipated Discharge Date Admission Date: June 07, 2024 Supervising Physician Co-Signing Physician Notes The patient was not seen by me. The chart was reviewed. Case discussed with TEODORO Juarez. Agree with assessment and plan Subjective Eval this morning, nursing assistance/supervising with walker back to chair. Getting better daily. Does appear dry, fluid restriction removed and discussed will attempt oral sodium tablets given his avoidance of sodium in diet and monitor BMP. He is ready for rehab, hopeful to get ball rolling.Discussed will f/u CM to see about bed placement at [facility]. Denies trouble breathing, CP, no leg edema. Questions/concerns addressed at this time. Physical Exam 2 Physical Exam: General: 78 yo male ambulating with nursing back to chair, appears much improved, mentation improved/stable, no further cough, 98% on RA HEENT:head atraumatic, normocephalic, mm DRY, trachea midline Resp: air entry improved bilaterally, no wheezing/rales, 98% on RA CV: RRR, +systolic murmur but NO edema, calves nontender GI: +BS, soft, slight distension but nontender : no schafer, voiding in toilet MSK/Neuro/Psych; alert to person, place in hospital, year/month, pleasant dementia, cooperative with exam Results & Data Results & Data Vital Signs (Past 12 Hours) Vital Signs Temp Pulse Resp BP Pulse Ox O2 Del Method 06/20/24 08:08 36.4 C L 67 18 147/77 H 98 Room Air 06/20/24 07:55 Room Air 06/19/24 20:38 36.7 C 72 18 130/72 96 Room Air Laboratory Results 06/12/24 06:41 06/20/24 09:24 PG Care Time/CCT Total # of Minutes Spent Total Time Spent with Patient: Total time spent is greater than 50% in coordination of care (as documented) at patient's floor/unit and/or counseling patient: Coding Level of Care Code 28710 SUB INP/OBS CARE 2/35MIN Diagnoses Influenza A J10.1 Hyponatremia E87.1 Pneumonia J18.9 Benign localized prostatic hyperplasia with lower urinary tract symptoms (LUTS) N40.1 Recurrent falls R29.6 Benign hypertension I10 Memory impairment of gradual onset R41.3 Hypothyroidism E03.9
[2024-06-20 09:59] LABS: BUN Creatinine Ratio 46.3 (10-20); Calcium 9.2 mg/dl (8.6-10.3); Creatinine Clr Calc Pharmacy 83.6 ml/min; Potassium 3.9 mmol/L (3.5-5.1)
[2024-06-20] MEDS: SODIUM CHLORIDE 1 GM TABLET PO SCH (10:44)
[2024-06-21 08:17] LABS: BUN Creatinine Ratio 45.3 (10-20); Calcium 8.8 mg/dl (8.6-10.3); Creatinine Clr Calc Pharmacy 87.5 ml/min
--- NOTE | 2024-06-21 08:52 | Hospitalist Progress Note ---
Date of Service June 21, 2024 Assessment & Plan (1) Influenza A: Plan: 78-year-old male PMHx aortic stenosis, BPH, hypothyroidism, HTN, dyslipidemia, and OP who presents to ED for recurrent falls with reported dizziness/weakness and fell to ground. No LOC/head trauma, but family reporting unsafe at home/living environment and unable to care for him. Concern for malnourishment as patient only eating maybe one meal daily at home. CT head negative on admission, CXR initially negative for acute process, but repeat CXR revealed right mid and lower lobe pneumonia. Positive influenza A testing on admission, completed course of Tamiflu while inpatient IMPROVED/RESOLVED Tylenol available as needed PT/OT recommending SNF, CM following and [facility] when bed available as NOT SAFE FOR RETURN HOME w/ family concerns/living environment. (2) Hyponatremia: Plan: Acute on chronic hyponatremia. TSH wnl IVF on admission w/ worsened hyponatremia. 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 ACTH sent and wnl. Seen by Dr Moyer in the past. 06/18 was having copious fluid intake, Na 129 and resumed fluid restriction w/ improvement to 130 on repeat labs however appearing dry on exam 06/20 and removed fluid restriction and added 1gm NaCL/given 129/push fluids (w/ solute) and Na 129--> 130 on BMP 06/21 --> Will continue 1gm NaCL PO daily for now and BMP in AM. If improved/stable on repeat can continue once daily/periodic monitoring of labs. Remains on Urea BID to keep salt in (3) Pneumonia: Plan: Suspected bacterial pna following viral pneumonia with elevated procal/wheezing/rales on exam with O2 requirement. Completed course of tx with Zosyn, on room air/remains on room air Continue pulmonary toilet Speech saw/video swallow without signs aspiration. Does have s/sx suspicious for esophageal dysmotility.. Speech rec alternating solids/liquids/HOB elevation and upright with meals/30min after. Continues on aspiration precautions, tolerating diet without issue and remains on ROOM AIR 99% (4) Benign localized prostatic hyperplasia with lower urinary tract symptoms (LUTS): Plan: Retention x 2, schafer placed overnight 06/08/24 and removed 06/15 and has been continued on flomax/proscar Monitor for urinary retention if occurs (5) Recurrent falls: Plan: Ongoing falls x months, per family. Pt denied symptoms prior to falls and no pain. Family stated the pt was complaining of back pain after sliding down stairs ~ 4 days ago then patient admits that he has some back pain. No tenderness to palpation of spine, some tenderness to palpation mid-lower paraspinal muscles, no areas of ecchymosis or open wounds. CT thoracic/lumbar spine without acute fx/subluxation Heating pad/Tylenol available Lisinopril as below, would likely NOT resume at dc Needs f/u on holter monitor results from last month as reported done by daughter on admission but never heard results (6) Benign hypertension: Plan: See prior notes, hx orthostatic hypotension and was DISCONTINUED last admission (+orthostatic VS) but resumed 5mg by PCP--> 10mg-> 20mg and w/ PETER on admission w/ underlying aortic stenosis suspect contributes to falls Lisinopril STOPPED, would dc at dc and BPs have been STABLE OFF, most recently 151/70 (7) Memory impairment of gradual onset: Plan: suspect fatigue 2nd to above is alert to person/time, intermittent to place and event sleep/wake schedules encouraged tsh/b12 wnl Hx dementia and remains on donepezil/memantine B1 sent, started 100mg PO daily and can f/u on B1 level at dc if not back. No hx alcohol use but given dementia using empiric (8) Hypothyroidism: Plan: Prior elevations w/ syncopal episodes req admission this year and checked repeat TSH which was normal Continue current dose Synthroid Outpt f/u Dr Moyer as previously following Plan DVT proph: Lovenox SQ while inpatient Dispo: continued inpatient stay waiting placement. continue NaCL 1gm once daily and if Na further imporved in am can periodically monitor but would continue for now as long as no LE edema (none on exam) CM following, for [facility] when bed available Plan to call w/ update this weekend Admission and Anticipated Discharge Date Admission Date: June 07, 2024 Supervising Physician Co-Signing Physician Notes The patient was not seen by me. The chart was reviewed. Case discussed with TEODORO Juarez. Agree with assessment and plan Subjective Eval this afternoon, doing well. Trying to ambulate/get out of bed on his own but nursing with alarm in place to prevent falls. He reports feeling well, tired of being here and ready to go. He is awaiting rehab, hopefully on Sunday if [facility] has discharges. Na stable and will continue off fluid restriction but will continue once daily salt tablets. Will call this weekend with update as requested. Physical Exam Physical Exam: General: 78 yo male resting in bed, looks well, NAD, 99% on RA HEENT:head atraumatic, normocephalic, mm slightly dry/improving, trachea midline Resp: air entry improved bilaterally, no wheezing/rales, RA, no cough CV: RRR, +systolic murmur but NO edema, calves nontender GI: +BS, soft, slight distension but nontender : no schafer, voiding in toilet MSK/Neuro/Psych; alert to person, place in hospital, year/month, pleasant dementia, cooperative with exam Results & Data Results & Data Vital Signs (Past 12 Hours) Vital Signs Temp Pulse Resp BP Pulse Ox O2 Del Method 06/21/24 07:49 36.7 C 73 16 151/70 H 99 Room Air 06/20/24 20:52 36.9 C 85 16 155/84 H 97 Room Air PG Care Time/CCT Total # of Minutes Spent Total Time Spent with Patient: Total time spent is greater than 50% in coordination of care (as documented) at patient's floor/unit and/or counseling patient: Coding Level of Care Code 11143 SUB INP/OBS CARE 2/35MIN Diagnoses Influenza A J10.1 Hyponatremia E87.1 Pneumonia J18.9 Benign localized prostatic hyperplasia with lower urinary tract symptoms (LUTS) N40.1 Recurrent falls R29.6 Benign hypertension I10 Memory impairment of gradual onset R41.3 Hypothyroidism E03.9
[2024-06-21] MEDS: CHOLECALCIFEROL 25 MCG (1000 UNITS) TAB PO SCH (19:41)
[2024-06-22 07:14] LABS: Calcium 8.7 mg/dl (8.6-10.3); Magnesium 2.1 mg/dl (1.7-2.4); Potassium 4.1 mmol/L (3.5-5.1)
[2024-06-22 07:19] LABS: BUN Creatinine Ratio 39.1 (10-20); Creatinine Clr Calc Pharmacy 87.5 ml/min
[2024-06-22 07:34] LABS: Thyroid Stimulating Hormone 2.375 uIu/ml (0.300-4.500)
[2024-06-22 08:10] VITALS: BP 133/73; PULSE 67; RESP 20; TEMP 97.9; O2SAT 98
--- NOTE | 2024-06-22 10:01 | Hospitalist Progress Note ---
Date of Service June 22, 2024 Assessment & Plan (1) Influenza A: Plan: 78-year-old male PMHx aortic stenosis, BPH, hypothyroidism, HTN, dyslipidemia, and OP who presents to ED for recurrent falls with reported dizziness/weakness and fell to ground. No LOC/head trauma, but family reporting unsafe at home/living environment and unable to care for him. Concern for malnourishment as patient only eating maybe one meal daily at home. CT head negative on admission, CXR initially negative for acute process, but repeat CXR revealed right mid and lower lobe pneumonia. Positive influenza A testing on admission, completed course of Tamiflu while inpatient IMPROVED/RESOLVED Tylenol available as needed PT/OT recommending SNF, CM following and [facility] when bed available as NOT SAFE FOR RETURN HOME w/ family concerns/living environment. (2) Hyponatremia: Plan: Acute on chronic hyponatremia. TSH wnl IVF on admission w/ worsened hyponatremia. 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 ACTH sent and wnl. Seen by Dr Moyer in the past. 06/18 was having copious fluid intake, Na 129 and resumed fluid restriction w/ improvement to 130 on repeat labs however appearing dry on exam 06/20 and removed fluid restriction and added 1gm NaCL/given 129/push fluids (w/ solute) and Na 129--> 130 on BMP 06/21 --> Will continue 1gm NaCL PO daily for now and BMP in AM. If improved/stable on repeat can continue once daily/periodic monitoring of labs. Remains on Urea BID to keep salt in 06/22 - at 129, will repeat urine na/serum osm studies for eval/further adj pending results (3) Pneumonia: Plan: Suspected bacterial pna following viral pneumonia with elevated procal/wheezing/rales on exam with O2 requirement. Completed course of tx with Zosyn, on room air/remains on room air Continue pulmonary toilet Speech saw/video swallow without signs aspiration. Does have s/sx suspicious for esophageal dysmotility.. Speech rec alternating solids/liquids/HOB elevation and upright with meals/30min after. Continues on aspiration precautions, tolerating diet without issue and remains on ROOM AIR 99% (4) Benign localized prostatic hyperplasia with lower urinary tract symptoms (LUTS): Plan: Retention x 2, schafer placed overnight 06/08/24 and removed 06/15 and has been continued on flomax/proscar Monitor for urinary retention if occurs (5) Recurrent falls: Plan: Ongoing falls x months, per family. Pt denied symptoms prior to falls and no pain. Family stated the pt was complaining of back pain after sliding down stairs ~ 4 days ago then patient admits that he has some back pain. No tenderness to palpation of spine, some tenderness to palpation mid-lower paraspinal muscles, no areas of ecchymosis or open wounds. CT thoracic/lumbar spine without acute fx/subluxation Heating pad/Tylenol available Lisinopril as below, would likely NOT resume at dc Needs f/u on holter monitor results from last month as reported done by daughter on admission but never heard results (6) Benign hypertension: Plan: See prior notes, hx orthostatic hypotension and was DISCONTINUED last admission (+orthostatic VS) but resumed 5mg by PCP--> 10mg-> 20mg and w/ PETER on admission w/ underlying aortic stenosis suspect contributes to falls Lisinopril STOPPED, would dc at dc and BPs have been STABLE OFF, most recently 151/70 (7) Memory impairment of gradual onset: Plan: suspect fatigue 2nd to above is alert to person/time, intermittent to place and event sleep/wake schedules encouraged tsh/b12 wnl Hx dementia and remains on donepezil/memantine B1 sent, started 100mg PO daily and can f/u on B1 level at dc if not back. No hx alcohol use but given dementia using empiric (8) Hypothyroidism: Plan: Prior elevations w/ syncopal episodes req admission this year and checked repeat TSH which was normal Continue current dose Synthroid Outpt f/u Dr Moyer as previously following Plan DVT proph: Lovenox SQ while inpatient Dispo: continued inpatient stay waiting placement. continue NaCL 1gm once daily and if Na further imporved in am can periodically monitor but would continue for now as long as no LE edema (none on exam) CM following, for [facility] when bed available Plan to call w/ update this weekend Admission and Anticipated Discharge Date Admission Date: June 07, 2024 Subjective No acute issues, impulsive and getting up at times/chair alarm in place. He reports he was standing up to fix the backside of his gown as was exposed, no acute distress. Needs to urinate, will check repeat urine na level. No bed until at least Sunday per for [facility] given had no beds/planned dcs for the weekend but hopeful for dc there tomorrow if bed opened. Questions/concerns addressed at this time. Results & Data Results & Data Vital Signs (Past 12 Hours) Vital Signs Temp Pulse Resp BP Pulse Ox O2 Del Method 06/22/24 08:00 36.6 C 67 20 133/73 98 Room Air PG Care Time/CCT Total # of Minutes Spent Total Time Spent with Patient: Total time spent is greater than 50% in coordination of care (as documented) at patient's floor/unit and/or counseling patient: Coding Diagnoses Influenza A J10.1 Hyponatremia E87.1 Pneumonia J18.9 Benign localized prostatic hyperplasia with lower urinary tract symptoms (LUTS) N40.1 Recurrent falls R29.6 Benign hypertension I10 Memory impairment of gradual onset R41.3 Hypothyroidism E03.9
--- NOTE | 2024-06-22 11:50 | Discharge Summary ---
Discharge Summary Date of Service June 22, 2024 Principal Dx & Hospital Course #1 = Principal Diagnosis (1) Influenza A: 78-year-old male PMHx aortic stenosis, BPH, hypothyroidism, HTN, dyslipidemia, and OP who presents to ED for recurrent falls with reported dizziness/weakness and fell to ground. No LOC/head trauma, but family reporting unsafe at home/living environment and unable to care for him. Concern for malnourishment as patient only eating maybe one meal daily at home. CT head negative on admission, CXR initially negative for acute process, but repeat CXR revealed right mid and lower lobe pneumonia. IMPROVED/RESOLVED Positive influenza A testing on admission, completed course of Tamiflu while inpatient . Isolation precautions maintained/since removed and completed course of IV/PO abx as well for superimposed bacterial PNA Tylenol available as needed as has remained stable OFF PT/OT recommending SNF, [facility] as NOT SAFE FOR RETURN HOME w/ family concerns/living environment. (2) Hyponatremia: Acute on chronic hyponatremia. TSH wnl IVF on admission w/ worsened hyponatremia. 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 w/ urine osm 800s/serum osm 269 Was placed on fluid restriction and added Urea BID w/ improvement to 132 on the 1st but repeat discussion with nursing given has been 129-130 recently since fluid restriction removed/regular diet to liberalize salt and has been having copious water intake and repeat Urine studies Na w/ increase from 22--> 50 and fluid restriction was resumed but then appeared dehydrated and was removed with improvement in BUN and hydration w/ salt/solute encouraged at dc Na 129 and will continue urea bid but defer ongoing salt tablets (no edema on exam/hx aortic stenosis, 98% on RA) but could be considered in f/u Of note, prior cortisol elevation w/ improvement on repeat but ?2nd to malnourishment vs other. ACTH sent and wnl. Seen by Dr Moyer in the past. (3) Pneumonia: As above, suspected bacterial superimposed PNRA and elevated procal/hypoxia requiring O2 and completed course w/ Zosyn and has remained afebrile/no SOB, 98% on RA and no cough/sputum production Speech saw/video swallow without signs aspiration. Does have s/sx suspicious for esophageal dysmotility.. Speech rec alternating solids/liquids/HOB elevation and upright with meals/30min after. Continued on aspiration precautions, tolerating diet without issue and remains on ROOM AIR 98%, lungs CTA (4) Benign localized prostatic hyperplasia with lower urinary tract symptoms (LUTS): Retention x 2, schafer placed overnight 06/08/24 and removed 06/15 and has been continued on flomax/proscar without urinary retention and moving his bowels(last BM 06/22 AM) (5) Recurrent falls: Ongoing falls x months, per family. Pt denied symptoms prior to falls and no pain. Family stated the pt was complaining of back pain after sliding down stairs ~ 4 days ago then patient admits that he has some back pain. No tenderness to palpation of spine, some tenderness to palpation mid-lower paraspinal muscles, no areas of ecchymosis or open wounds. CT thoracic/lumbar spine without acute fx/subluxation Heating pad/Tylenol available Lisinopril as below, discontinued at dc Notable has been ambulating with assistance but can be impulsive at times, rehab planned as above Needs f/u on holter monitor results from last month as reported done by daughter on admission but never heard results - f/u pcp [place] (6) Benign hypertension: See prior notes, hx orthostatic hypotension and was DISCONTINUED last admission (+orthostatic VS) but resumed 5mg by PCP--> 10mg-> 20mg and w/ PETER on admission w/ underlying aortic stenosis suspect contributes to falls Lisinopril STOPPED, would dc at [place] and BPs have been STABLE OFF, most recently 133/73 with improved hydration status (7) Memory impairment of gradual onset: suspect fatigue 2nd to above and much improved alert to person/place, intermittent to month but much improved and TSH/B12 wnl and remains on donepezil/memantine B1 sent, started 100mg PO daily and can f/u on B1 level at dc if not back. No hx alcohol use but given dementia using empiric (8) Hypothyroidism: Prior elevations w/ syncopal episodes req admission this year and checked repeat TSH which was normal and continued current dose Synthroid Outpt f/u Dr Moyer as previously following Plan DVT proph: Lovenox SQ while inpatient utilized. no bleeding/hgb stable on repeat Dispo: dc to [facility], stopped lisinopril, continue urea. Rec repeat BMP 2-3 days/consider salt tablets if urine Na Notes For Next Care Provider Monitor sodium levels, urine Na c/w SIADH on admission likely worsened with poor PO intake from flu/pneumonia but has been stable. Consideration for salt tablets if needed but did remove fluid restriction prior to dc and increasing PO intake w/ improving BUN prior to dc and no significant dehydration on exam and mm impro marisa Rec monitoring BP, consideration for low dose HCTZ if needed if develops edema with his underlying but has been well controlled OFF this medication and suspect BP elevations from dehydration on admission w/ increasing lisinopril dosing. Rec f/u on holter monitor done as outpatient as family reporting not knowing results of this when discussed previously Empiric thiamine 100mg PO daily/B1 level pending at [place]. No etoh use but for empiric and should have f/u on B1 level Medication Changes From Visit Lisinopril STOPPED Urea 15g BID Thiamine 100mg PO daily Admission HPI Per Admitting Provider 78-year-old male PMHx aortic stenosis, BPH, hypothyroidism, HTN, dyslipidemia, and OP who presents to ED for recurrent falls. Noted to have fever upon arrival. Patient is a poor historian, only able to provide some history, mainly answer yes and no to questions or going off topic. States that this morning, he was walking to the bathroom when he had a little bit of dizziness and felt weak so he fell to the ground. States that he slowly went down and caught himself on his hands and knees. Not complaining of any current pain. States that he did not have chest pain, shortness of breath, or palpitations prior to the event. Overall, states he is feeling well. Denying chest pain, shortness of breath, palpitations, abdominal pain, N/V/D/C, or URI symptoms. Was found to be flu A positive on exam, otherwise labs are fairly unremarkable except for mild hypo natremia and UA with evidence of dehydration. Patient's family is in the room at the time of visit and helps provide additional history aside from the patient. States that there is concern for his increased falls, as he had 2 on the day of arrival, and multiple on the days before. Approximately 4 days prior to arrival, patient had a fall on the steps in which he landed on his back and had been complaining of back pain. The patient did not relay this information to me, but the family states that he has been complaining of at home. Additionally, there is concerns that the patient is not taking his medications as they are prescribed. He and his live alone in a home and have been have a difficult time taking care of themselves. Family informs me that the house is unclean and that there is not even enough room within the house that the patient can use a walker, so he just walks without assistance and then ends up falling. Has not hit his head throughout these falls that they are aware of. There have been episodes where he has tripped over the dog, and been unable to get up. The patient's family is very concerned about the safety of the patient and his ambulatory dysfunction given that he is fallen multiple times per day over the past few months. Unsure the patient took his a.m. medications. Please see Dr. Vasquez's attestation for adjustments/additions to treatment plan. Admission Exam Per Admitting Provider General: No acute distress Skin: Warm and dry, without rashes or lesions Head: Normocephalic, atraumatic Eyes: PERRL, conjunctivae clear, sclera non-icteric ENT: External ear and ear canal without swelling; nose atraumatic; good dentition, tongue normal appearance Neck: Supple, no LAD Cardio: RRR, no M/G/R, S1 and S2 normal Resp: No respiratory distress, Lungs CTA in all lobes bilaterally, no wheezes, rales, or rhonchi Abdomen: Soft, symmetric, nontender; No visible lesions or scars; no distention; No masses or hepatosplenomegaly; Bowel sounds normoactive MSK: No tenderness to palpation of spine, some tenderness to palpation of paraspinal muscles, mid-lower back; No deformities, full ROM throughout; pulses palpable and equal; no edema. Neuro: Awake, alert; CN grossly intact Psych: Appropriate mood and affect Family members present in room at time of visit. Discharge Exam General: 78 yo male sitting up in chair, fixing gown, NAD, ready for rehab, cooperative/pleasant HEENT:head atraumatic, normocephalic, mm improved, trachea midline Resp: air entry improved bilaterally, no wheezing/rales, RA, no cough CV: RRR, +systolic murmur RUSB, NO edema, calves nontender, pulses present GI: +BS, soft, nontender : no schafer, voiding in toilet MSK/Neuro/Psych; alert to person, place in hospital, year/month, pleasant dementia, cooperative with exam Discharge Plan Discharge Items Patient Disposition: Transfer Inpatient Rehab Fac Reason For Visit: FALLS,INFLUENZA,AMBULATORY DYSFUNCTION Discharge Diagnosis: Falls, Influenza, Pneumonia Goals: You have been hospitalized for an acute medical problem. During your stay at [facility], we have made an effort to correct the problem that brought you to the hospital while keeping you as comfortable as possible. Medications were used to bring your condition under control and your discharge instructions will include directions for any medications you should take after leaving the hospital. Please make sure you see your Primary Care Provider as part of your follow up plan. Activity: Resume your previous activity Non-emergency contact: Primary Care Provider Call non-emergency contact if: you have any medication questions, your symptoms worsen, your pain is not controlled, your pain is concerning for you and you have a fever Follow-up/Referrals: Gigi Smiley, DO [Primary Care Provider] - Diet: Regular Fluids: 2000ml (8 cups) Addtl Attending Provider Instructions: Hospitalized and found to have + flu testing. Provided tamiflu but concerns for bacterial pneumonia and treated with IV antibiotics and completed the course while inpatient and have been stable on room air. We have STOPPED your lisinopril as your blood pressures have been well controlled off this medication and I suspect this contributed to your fall. Your sodium level has always been low and we checked your thyroid function which was normal. We have started/continued you on Urea twice daily recommend repeating BMP in 2-3 days to ensure stable and if lower would repeat urine sodium and osmolality testing. Therapy recs are for rehab and [facility] has been arranged. Please follow up with primary care in 7-10 days after discharge from hospital to monitor your progress. Please return to the ER with any fever/chills, chest pain, shortness of breath or for any other symptoms concerning for you. Take care! Pending Studies at Discharge: Yes (blood cultures) Studies:: b1 Stand-Alone Forms: My [facility] Skilled Items Patient informed of condition?: Yes DNR: No Discharge Level of Care: Acute rehab Communicable Disease: No Discharge Prognosis: Stable Lines: None Urinary Catheter: No Medications and DC Order Prescriptions: New Ure-Na 15 gram Powder In Packet 15 g PO BID Qty: 8 0RF thiamine HCl (vitamin B1) 100 mg Tablet 100 mg PO QAM Qty: 30 0RF Continued cholecalciferol (vitamin D3) 400 unit capsule 800 units PO BID Qty: 30 0RF simvastatin 20 mg tablet 20 mg PO QPM Qty: 90 3RF Suflave 178.7-7.3-0.5 gram recon soln See Rx Instructions PO .COMPLEX Qty: 2 0RF Rx Instructions: orally; TAKE FIRST DOSE AT 6 PM AND SECOND DOSE 6 HOURS PRIOR TO PROCEDURE BIN: [id number] N: 2000 GROUP: [id number] memantine 10 mg tablet 10 mg PO BID Qty: 180 3RF multivitamin tablet 1 tab PO DAILY diclofenac sodium [Arthritis Pain (diclofenac)] 1 % gel 2 g topical QID Qty: 100 5RF Rx Instructions: Unable to verify OTC med at this date/time. Apply to single elbow, wrist or hand; for hand includes palm/fingers/back of hand calcium citrate 250 mg calcium tablet 600 mg PO DAILY Qty: 30 0RF donepezil 5 mg tablet 5 mg PO QAM levothyroxine 88 mcg tablet 88 mcg PO QAM tamsulosin 0.4 mg capsule 0.4 mg PO HS Rx Instructions: Take 30 minutes after a meal finasteride 5 mg tablet 5 mg PO QAM Discontinued lisinopril 20 mg tablet 20 mg PO DAILY Qty: 90 3RF Discharge Orders: Discharge Order (Routine); Ordered 06/22/24 Ordered By: Ade Breen Admission Data Admit Date/Time: 06/07/24 16:37 Attending Provider: Salvaodr Murrieta Admit Provider: Suad Vasquez Primary Care Provider: Gigi Smiley Other Providers: Suad Vasquez; [place],[facility], [place]; [facility]; [facility] Other Interventions: Discharge Summary Assessment (RN) Last Done: 06/22/24 13:01 Hospital Stay Data Consultations 06/07/24 15:08 ED Decision to Admit Stat Diagnostic Imagining Performed Chest X-Ray 06/07/24 12:44 XR chest 1V portable CLINICAL HISTORY: Sepsis TECHNIQUE: Single frontal radiograph of the chest was obtained. Comparison: Comparison is made to chest radiograph 03/14/2024 FINDINGS: No lines and tubes are seen. Calcified aortic knob is seen. The lungs are clear. No evidence of pleural effusion or pneumothorax. IMPRESSION: No acute abnormalities and in particular no radiographic evidence of pneumonia. ACT 112: Negative or not required by law. Electronically signed by: Diaz Guerra M.D. 06/07/2024 2:[address] 06/07/24 12:46 INDICATION: Headache. COMPARISON: CT from 03/15/2024. TECHNIQUE: Axial CT images of the head were obtained without IV contrast. Coronal and sagittal reformations were reviewed. FINDINGS: Reynoso-white differentiation is relatively preserved. No mass, mass effect or midline shift. Mild chronic ischemic white matter changes. No evidence of acute large territorial infarction or acute intracranial hemorrhage. Ventricles appear normal in size. Basal cisterns are patent. No depressed calvarial fracture. IMPRESSION: No acute intracranial process. Electronically signed by Elan Velasco 06-07-2024 2:[address] 06/07/24 18:46 Exam(s): CT L SPINE EXAM: CT Lumbar Spine Without Intravenous Contrast CLINICAL HISTORY: Reason for exam: Fall, back pain. TECHNIQUE: Axial computed tomography images of the lumbar spine without intravenous contrast. CTDI is 38 mGy and DLP is 2210 mGy-cm. Automated exposure control was utilized for the study. A dose lowering technique was utilized adhering to the principles of ALARA. COMPARISON: No relevant prior studies available. FINDINGS: Vertebrae: Osteopenia. No acute fracture. No traumatic subluxation. Discs/spinal canal/neural foramina: No acute findings. No spinal canal stenosis. Soft tissues: Unremarkable. IMPRESSION: No acute osseous findings. Electronically signed by: William Galeana M.D. 06/07/24 21:[address] 06/07/24 18:50 Exam(s): CT T SPINE EXAM: CT Thoracic Spine Without Intravenous Contrast CLINICAL HISTORY: Reason for exam: Fall, back pain. TECHNIQUE: Axial computed tomography images of the thoracic spine without intravenous contrast. CTDI is 38 mGy and DLP is 2210 mGy-cm. Automated exposure control was utilized for the study. A dose lowering technique was utilized adhering to the principles of ALARA. COMPARISON: No relevant prior studies available. FINDINGS: Vertebrae: Unremarkable. No acute fracture. No traumatic subluxation. Discs/spinal canal/neural foramina: Mild disc degeneration. No spinal canal stenosis. Soft tissues: Unremarkable. Lungs: Biapical pleural-parenchymal scarring. Bibasilar atelectasis. Calcified granulomas in the lungs. IMPRESSION: No acute findings in the thoracic spine. Electronically signed by: William Galeana M.D. 06/07/24 21:14 PM Chest X-Ray 06/09/24 16:56 EXAM: Portable AP chest radiograph TECHNIQUE: AP portable radiograph of the chest was obtained. INDICATION: Shortness of breath Comparison: Chest radiograph June 07, 2024 FINDINGS: LINES and TUBES: None. CARDIOVASCULAR: Cardiac silhouette is stably and mildly enlarged in size. LUNGS/PLEURA: New acute infiltrates are identified over the right upper and lower lobes of the lungs. Peribronchial cuffing likely representing infectious/inflammatory bronchiolitis. No significant pleural fluid. No discernible pneumothorax. OSSEOUS/OTHER: No displaced acute osseous process identified. IMPRESSION: New infiltrates of the right lung involving the upper and the lower lobes likely representing multifocal pneumonia with underlying infectious/inflammatory bronchiolitis. Electronically signed by Eligio Roberson 06-09-2024 5:23 PM Chest X-Ray 06/10/24 06:00 XR chest 2V PA/lateral CLINICAL HISTORY: f/u opacity, PNA vs atelectasis TECHNIQUE: 2 views of the chest were obtained. Comparison: Comparison is made to chest radiograph 06/09/2024 FINDINGS: No lines and tubes are seen. Calcified aortic knob is seen. Airspace opacities are seen in the right mid and lower lungs, increased from prior exam. No evidence of pleural effusion or pneumothorax. IMPRESSION: Interval increase in airspace opacities in the right lung likely representing worsening pneumonia and/or aspiration. ACT 112: Negative or not required by law. Electronically signed by: Diaz Guerra M.D. 06/10/2024 8:48 AM Videofluoroscopic Swallow 06/13/24 10:00 MODIFIED BARIUM SWALLOW CLINICAL HISTORY: assess for silent aspiration COMPARISON STUDY: None. FLUOROSCOPY TIME: 1.11 minutes. Ka,r: 11.6 mGy TECHNIQUE: A modified barium swallow was performed in conjunction with Speech Pathology. The patient ingested varying consistencies of barium containing material. Video fluoroscopy was performed. FINDINGS: No tracheal aspiration was identified with thin liquids by spoon, cup or straw. There was no aspiration with nectar thick liquids, pudding or cracker and pudding consistencies. Epiglottic inversion was normal. Laryngeal elevation was normal. Moderate esophageal retention was noted at the completion of the study. IMPRESSION: 1. No tracheal aspiration. Intact swallowing mechanism. 2. Full recommendations by Speech pathology to follow. ACT 112: Negative or not required by law. Electronically signed by: Deng Castaneda M.D. 06/13/2024 11:35 AM Pending Results Patient Have Any Pending Studies at Discharge: Yes (blood cultures) Discharge Instructions Given to Patient (Per Discharging Provider) Hospitalized and found to have + flu testing. Provided tamiflu but concerns for bacterial pneumonia and treated with IV antibiotics and completed the course while inpatient and have been stable on room air. We have STOPPED your lisinopril as your blood pressures have been well controlled off this medication and I suspect this contributed to your fall. Your sodium level has always been low and we checked your thyroid function which was normal. We have started/continued you on Urea twice daily recommend repeating BMP in 2-3 days to ensure stable and if lower would repeat urine sodium and osmolality testing. Therapy recs are for rehab and [facility] has been arranged. Please follow up with primary care in 7-10 days after discharge from hospital to monitor your progress. Please return to the ER with any fever/chills, chest pain, shortness of breath or for any other symptoms concerning for you. Take care! Supervising Physician Co-Signing Physician Notes The patient was not seen by me. The chart was reviewed. Case discussed with TEODORO Juarez. Agree with assessment and plan Total Time Total Time Spent Total Time Spent (In Minutes): 45 Coding Level of Care Code 37030 INP/OBS DISCH >30 MIN Diagnoses Influenza A J10.1 Hyponatremia E87.1 Pneumonia J18.9 Benign localized prostatic hyperplasia with lower urinary tract symptoms (LUTS) N40.1 Recurrent falls R29.6 Benign hypertension I10 Memory impairment of gradual onset R41.3 Hypothyroidism E03.9
== END 2024-06-22 15:00 | DRG 194 ==
LOC: ED 12:32 → EDINP 16:37 → SUATTDRO 16:37 → 3W 18:31

== ENCOUNTER 2025-02-07 20:35 | Inpatient (IN) ==
--- NOTE | 2025-02-07 21:08 | Emergency Department Note ---
Impression & Plan Unable to care for self, Dementia ED Provider Note NAME: SAMIRA JOHNSON AGE: 79 SEX: M : 1945 ARRIVES VIA: Walk-In INFORMANT: Patient, ED PROVIDER(S): Alfred Soto MD CHIEF COMPLAINT: Inability to care MEDICAL DECISION MAKING: Patient presents due to concern for inability to carry as a has a known history of dementia but his was recently admitted reportedly for pneumonia. IV was established and blood work was obtained. The patient was given some to eat and drink. Patient is not unwell but may benefit from placement. Blood work shows a normal white count hemoglobin of 12.9 with normal platelet count kidney function is unremarkable. I did speak the on-call hospital service Dr. Benitez and the patient was admitted to medicine service. Discussion w/ other healthcare providers: Dr. Valero inpatient medicine service Prior /Outside records reviewed: none Differential diagnosis: Infection, dehydration, metabolic abnormality, hypo/hyperglycemia, electrolyte imbalance, anemia, UTI, pneumonia, thyroid dysfunction among others were considered. Inability to care, Diagnostics, as interpreted by me: ECG: Normal sinus rhythm, rate of 62, normal intervals, normal axis no ST elevations or TWI. Cardiac monitoring: An order was placed for continuous cardiac monitoring. The monitor shows a rate of 63 with sinus rhythm. Patient was placed on pulse oximetry Medical decision rules: None Imaging studies: None HPI:Patient presents primarily due to concerns for inability to care. Known history of dementia and unfortunately the patient's was recently admitted for reported pneumonia. Does not have any additional caretakers at home at this time. Patient denies any head neck chest back or abdominal pain. He states that he has been eating well. He believes he follows with Dr. Smiley as an outpatient. PAST MEDICAL HISTORY: See Below PAST SURGICAL HISTORY: See Below SOCIAL HISTORY: See Below HOME MEDICATIONS: See Below ALLERGIES: See Below VITALS: See Below PHYSICAL EXAMINATION: GENERAL: NAD, non-toxic. EYE EXAM: Normal conjunctiva. PERRL, no anisocoria and EOM's grossly intact w/o pain. OROPHARYNX: Moist mucus membranes, grossly normal dentition. NECK: Trachea midline, no stridor. LUNGS: Clear to auscultation. Normal chest wall mechanics. HEART: NSR, no MRG. ABDOMEN: Abdomen soft, non-tender, no masses, no rebound or guarding. BACK: No CVA TTP. SKIN: No rashes and no bruising. UPPER EXTREMITIES: Upper extremities are grossly normal. LOWER EXTREMITIES: Grossly normal, no edema. NEURO EXAM: Awake and alert, follows commands, no obvious facial asymmetry, normal speech, moves all 4 extremities. Past Med/Surg History Problem List (Updated 02/09/25 @ 11:54 by Alfred Soto MD) Esophageal dysmotility Dementia (Acute) Unable to care for self (Acute) SIAD (syndrome of inappropriate antidiuresis) History of aortic valvular stenosis (Acute) Memory impairment of gradual onset Benign localized prostatic hyperplasia with lower urinary tract symptoms (LUTS) Hyponatremia Osteoporosis Hypothyroidism Dyslipidemia Benign hypertension Medical History Tinea cruris Murmur History of squamous cell carcinoma in situ Hearing loss Vitamin D deficiency Allergic rhinitis Arthritis of both hands Tremor Recurrent falls Cyclic citrullinated peptide (CCP) antibody positive Surgical History History of colonoscopy History of tooth extraction History of squamous cell carcinoma excision Hx of hernia repair Hx of adenoidectomy Hx of tonsillectomy Family History Grandfather (Paternal) Colorectal cancer Father Myocardial infarction Mother Cancer Denies family history of Ovarian cancer Prostate cancer Breast cancer Social History Smoking Status: Never smoker Second Hand Exposure: No; Do You Dip or Chew Tobacco: No; Hx Alcohol Use: No Hx Substance Use: No Preferred Language: Turkmen Communication Ability: Effective Visual Impairment: Limited Hearing Ability: Normal Head Control Clerk Required: No Beliefs That Will Affect Care: None marital status: Current Living Situation: Spouse current occupational status: retired How many Children do You have: 1 Other Information That Helps Us Care for You: No Feels Safe at Home: Yes Safety Concerns: Feels Safe At This Time Childhood Exposure to Second-Hand Smoke: Yes Diet: regular caffeine: No during the past year weight has: remained stable Dental Care, Regularly: Yes Physical Activity Frequency: 3-4 Times per Week Seatbelt Use: always Sunscreen Use: Yes Assistive Devices: None Assistive Devices Comment: Pt denies use of assistive devices Allergies Allergies Allergy/AdvReac Type Severity Reaction Status Date / Time azithromycin [From Zithromax] Allergy Unknown Unknown Verified 02/07/25 22:25 ciprofloxacin AdvReac Intermediate Diarrhea Verified 02/07/25 22:25 codeine AdvReac Intermediate Hallucinati Verified 02/07/25 22:25 ng Home Meds Home Medications Medication Instructions Recorded Confirmed multivitamin 1 tab PO DAILY 02/25/19 02/07/25 finasteride 5 mg tablet 5 mg PO QAM 03/11/24 02/07/25 tamsulosin 0.4 mg capsule 0.4 mg PO HS 03/11/24 02/07/25 Previous Rx's Medication Instructions Recorded cholecalciferol (vitamin D3) 10 800 units PO BID #30 caps 04/04/19 mcg (400 unit) capsule diclofenac sodium 1 % topical gel 2 g topical QID #100 grams 12/01/21 (Arthritis Pain (diclofenac)) calcium citrate 600 mg (2.4 x 250 mg calcium) PO 04/28/24 DAILY #30 tabs thiamine HCl (vitamin B1) 100 mg 100 mg PO QAM #30 tabs 06/22/24 tablet donepezil 5 mg tablet 5 mg PO QAM #90 tabs 07/04/24 simvastatin 20 mg tablet 20 mg PO QPM #90 tabs 07/21/24 RSVPreF3 antigen-AS01E 0.5 ml IM ONCE #1 ea 09/08/24 adjuvant(PF) 120 mcg/0.5 mL IM suspension, kit levothyroxine 88 mcg tablet 88 mcg PO QAM #100 tabs 01/07/25 memantine 10 mg tablet 10 mg PO BID #180 tabs 01/07/25 Results & Data (ED) Vital Signs Vital Signs - 24 hr 02/07/25 20:40 Temperature 36.5 C Temperature Source Temporal Artery Scan Pulse Rate 77 Respiratory Rate 18 Respiratory Effort / Characteristics Non-Labored Spontaneous Respiratory Depth Normal Respiratory Pattern Regular Blood Pressure 167/95 H Blood Pressure Mean 119 Blood Pressure Position Sitting Pulse Oximetry 99 Oxygen Delivery Method Room Air Sepsis Recent Fever Within 48 Hours No Sepsis New/Unexplained Change in Mental Status No Sepsis Action Taken by Nursing No Action Required Home Medications Current Medication List: was personally reviewed by me Laboratory Data Attestation: I reviewed the patient's lab results. 02/07/25 21:00 02/07/25 21:00 Lab Results 02/07/25 Range/Units 21:00 WBC 7.48 (4.8-10.8) K/ul RBC 4.15 L (4.70-6.10) M/uL Hgb 12.9 L (14.0-18.0) g/dl Hct 39.1 L (42.0-52.0) % MCV 94.2 (80.0-100.0) fL MCH 31.1 (25.0-34.0) pg MCHC 33.0 (32.0-36.0) g/dL RDW Std Deviation 50.7 H (36.4-46.3) fL RDW Coeff of Tiny 14.6 H (11.5-14.5) % Plt Count 208 (130-400) K/uL MPV 11.0 (9.4-12.4) fL Immature Gran % (Auto) 0.3 % Neut % (Auto) 67.2 % Lymph % (Auto) 17.4 % [place] % (Auto) 11.9 % Eos % (Auto) 2.7 % Baso % (Auto) 0.5 % Neut # (Auto) 5.03 (1.40-6.50) K/uL Lymph # (Auto) 1.30 (1.20-3.40) K/uL [place] # (Auto) 0.89 H (0.11-0.59) K/uL Eos # (Auto) 0.20 (0.00-0.50) K/uL Baso # (Auto) 0.04 (0.00-0.20) K/uL Immature Gran # (Auto) 0.02 (0.01-0.20) K/uL Sodium 137 (136-145) mmol/L Potassium 3.7 (3.5-5.1) mmol/L Chloride 102 (98-107) mmol/L Carbon Dioxide 31 (21-32) mmol/L Anion Gap 4 (3-11) BUN 26 H (6-23) mg/dl Creatinine 0.93 (0.6-1.4) mg/dl Est Cr Clr Drug Dosing 58.7 ml/min eGFR 83.01 BUN/Creatinine Ratio 28.0 H (10-20) Glucose 119 H (70-99(Fasting)) mg/dl Calcium 9.5 (8.6-10.3) mg/dl Total Bilirubin 0.5 (0.2-1.0) mg/dl AST 17 (13-39) U/L ALT 11 (7-52) U/L Alkaline Phosphatase 42 (34-104) U/L Total Protein 7.2 (6.0-8.3) gm/dl Albumin 4.0 (3.4-5.0) gm/dl Globulin 3.2 (2.5-4.0) gm/dl Albumin/Globulin Ratio 1.3 (0.9-2) Administered Medications Acetaminophen (Acetaminophen 325 Mg Tab) 650 mg PO Q4H PRN PRN Reason: Pain or Fever Stop: 03/10/25 00:52 Last Admin: 02/08/25 20:12 Dose: 650 mg Documented By: GERARDO Donepezil HCl (Donepezil Hcl 5 Mg Tab) [facility] Stop: 03/10/25 08:59 Last Admin: 02/09/25 08:07 Dose: 5 mg Documented By: Admin: 02/08/25 08:39 Dose: 5 mg Documented By: RENA Enoxaparin Sodium (Enoxaparin Inj 40 Mg/0.4 Ml Syr) 40 mg SQ Q24H [facility]1983 Stop: 03/10/25 08:59 Last Admin: 02/09/25 08:06 Dose: 40 mg Documented By: Admin: 02/08/25 08:39 Dose: 40 mg Documented By: RENA Finasteride (Finasteride 5 Mg Tab) [facility] Stop: 03/10/25 08:59 Last Admin: 02/09/25 08:07 Dose: 5 mg Documented By: Admin: 02/08/25 08:39 Dose: 5 mg Documented By: RENA Levothyroxine Sodium (Levothyroxine Sodium 88 Mcg Tablet) 88 mcg PO DAILYBB [facility]1983 Stop: 03/10/25 06:29 Last Admin: 02/09/25 06:12 Dose: 88 mcg Documented By: Admin: 02/08/25 05:36 Dose: 88 mcg Documented By: GERARDO Melatonin (Melatonin 3 Mg Tab) 3 mg PO HS PRN PRN Reason: Sleep Stop: 03/10/25 00:52 Last Admin: 02/08/25 20:12 Dose: 3 mg Documented By: GERARDO Memantine (Memantine Hcl 10 Mg Tab) 10 mg PO BID MONICA Stop: 03/10/25 00:52 Last Admin: 02/09/25 08:07 Dose: 10 mg Documented By: Admin: 02/08/25 20:12 Dose: 10 mg Documented By: Admin: 02/08/25 08:39 Dose: 10 mg Documented By: Admin: 02/08/25 01:50 Dose: 10 mg Documented By: GERARDO Tamsulosin HCl (Tamsulosin Hcl 0.4 Mg Cap) 0.4 mg PO HS MONICA Stop: 03/10/25 00:52 Last Admin: 02/08/25 20:12 Dose: 0.4 mg Documented By: Admin: 02/08/25 01:51 Dose: 0.4 mg Documented By: GERARDO Discontinued Medications Simvastatin (Simvastatin 20 Mg Tab) 20 mg PO QPM MONICA Stop: 03/10/25 00:52 Last Admin: 02/08/25 20:12 Dose: 20 mg Documented By: Admin: 02/08/25 01:51 Dose: 20 mg Documented By: GERARDO Discharge Plan Visit Data Chief Complaint: Altered Mental Status Stated Complaint: HAS DEMENTIA AND HAS NO SAFE PLACE TO GO ED Provider: Alfred Soto Discharge Problem: Unable to care for self, Dementia Patient Disposition: Admitted As Inpatient Condition: Good Discharge Instructions Interventions: ED Discharge Assessment Last Done: 02/08/25 00:15 Discharge Problem: Dementia Qualifiers: Dementia type: unspecified type Dementia severity: unspecified severity D ementia behavioral or psychological symptom: without behavioral, psychotic, or mood disturbance or anxiety Qualified Code(s): F03.90 - Unspecified dementia, unspecified severity, without behavioral disturbance, psychotic disturbance, mood disturbance, and anxiety
[2025-02-07 21:56] LABS: Hematocrit (blood only) 39.1 % (42.0-52.0); Hemoglobin 12.9 g/dl (14.0-18.0); Immature Granulocytes # (auto) 0.02 K/uL (0.01-0.20); Immature Granulocytes % (auto) 0.3 %; Mean Corpuscular Hemoglobin 31.1 pg (25.0-34.0); Mean Corpuscular Volume 94.2 fL (80.0-100.0); Platelet Count 208 K/uL (130-400); RDW Standard Deviation 50.7 fL (36.4-46.3); Red Blood Count 4.15 M/uL (4.70-6.10); White Blood Count 7.48 K/ul (4.8-10.8)
[2025-02-07 22:08] LABS: Alanine Aminotransferase 11.0 U/L (7-52); Albumin Globulin Ratio 1.3 (0.9-2); Alkaline Phosphatase 42.0 U/L (34-104); Anion Gap 4.0 (3-11); Bilirubin,Total 0.5 mg/dl (0.2-1.0); Blood Urea Nitrogen 26.0 mg/dl (6-23); Calcium 9.5 mg/dl (8.6-10.3); Carbon Dioxide 31.0 mmol/L (21-32); Chloride 102.0 mmol/L (98-107); Creatinine Clr Calc Pharmacy 58.7 ml/min; Globulin 3.2 gm/dl (2.5-4.0); Glucose 119.0 mg/dl (70-99(Fasting)); Potassium 3.7 mmol/L (3.5-5.1); Sodium 137.0 mmol/L (136-145); Total Protein 7.2 gm/dl (6.0-8.3)
--- NOTE | 2025-02-07 22:40 | History & Physical Report ---
Date of Service February 07, 2025 Assessment & Plan (1) Unable to care for self: (2) Dementia: (3) Benign localized prostatic hyperplasia with lower urinary tract symptoms (LUTS): (4) Esophageal dysmotility: Plan Patient is an 79-year-old male with past medical history of BPH, hypothyroidism, HTN, HLD, and dementia. Patient presented with his family for placement as he has dementia at baseline and his is his primary caregiver who is currently admitted to the hospital. He denies any acute concerns or complaints. #Inability to care for self/dementia patient with dementia, oriented to person and time only, no acute change in baseline, pleasant at time of admission. Coming in for placement given his is his primary caregiver he was currently admitted to the hospital and it is unsafe for him to be at home alone. He denies any recent falls. - Covid swab ordered with potential placement - baseline EKG ordered Case management consulted Promote good sleep-wake cycles with dementia, melatonin as needed Continue Aricept and Namenda #BPH - no acute retention on admission - bladder scan prn - Continue finasteride and tamsulosin #esophageal dysmotility previously seen by speech, standard aspiration precautions ordered. With clear lung sounds, patient asymptomatic defer CXR as low concern for acute aspiration pneumonitis on admission #Hypothyroidism continue levothyroxine #HLD continue simvastatin VTE ppx: Lovenox Dispo: med surg Admission and Anticipated Discharge Date Admission Date: 02/07/25 History of Present Illness Chief Complaint: Placement Primary Care Provider: Gigi Smiley DO Patient is an 79-year-old male with past medical history of BPH, hypothyroidism, HTN, HLD, and dementia. Patient presented with his family for placement as he has dementia at baseline and his is his primary caregiver who is currently admitted to the hospital. He denies any acute concerns or complaints. Patient seen at bedside with his daughter and son-in-law present. He is feeling well - he denies any dizziness, lightheadedness, headaches, chest pain, shortness of breath, cough, congestion, abdominal pain. He denies any recent falls. He is oriented to person and time only however answers questions well at bedside. He did get his morning medications however is due for evening medications. He wishes to be full code, discussed with family at bedside. It is unclear as to if he will need short-term placement for long-term placement and pending his 's clinical course. He was admitted for a prolonged stay in June of this year due to pneumonia, influenza A, and SIADH awaiting placement. He was discharged to [facility] and ended up returning home with his . Allergies Allergy/AdvReac Type Severity Reaction Status Date / Time azithromycin [From Zithromax] Allergy Unknown Unknown Verified 02/07/25 22:25 ciprofloxacin AdvReac Intermediate Diarrhea Verified 02/07/25 22:25 codeine AdvReac Intermediate Hallucinati Verified 02/07/25 22:25 ng Home Medications Medication Instructions Recorded Confirmed Type multivitamin 1 tab PO DAILY 02/25/19 02/07/25 History cholecalciferol (vitamin D3) 10 800 units PO BID #30 caps 04/04/19 02/07/25 Rx mcg (400 unit) capsule diclofenac sodium 1 % topical gel 2 g topical QID #100 grams 12/01/21 02/07/25 Rx (Arthritis Pain (diclofenac)) finasteride 5 mg tablet 5 mg PO QAM 03/11/24 02/07/25 History tamsulosin 0.4 mg capsule 0.4 mg PO HS 03/11/24 02/07/25 History calcium citrate 600 mg (2.4 x 250 mg calcium) PO 04/28/24 02/07/25 Rx DAILY #30 tabs thiamine HCl (vitamin B1) 100 mg 100 mg PO QAM #30 tabs 06/22/24 02/07/25 Rx tablet donepezil 5 mg tablet 5 mg PO QAM #90 tabs 07/04/24 02/07/25 Rx simvastatin 20 mg tablet 20 mg PO QPM #90 tabs 07/21/24 02/07/25 Rx RSVPreF3 antigen-AS01E 0.5 ml IM ONCE #1 ea 09/08/24 02/07/25 Rx adjuvant(PF) 120 mcg/0.5 mL IM suspension, kit levothyroxine 88 mcg tablet 88 mcg PO QAM #100 tabs 01/07/25 02/07/25 Rx memantine 10 mg tablet 10 mg PO BID #180 tabs 01/07/25 02/07/25 Rx Past Med/Surg History Problem List (Updated 02/07/25 @ 22:46 by Jelena Mijares PA-C) Esophageal dysmotility Dementia Unable to care for self SIAD (syndrome of inappropriate antidiuresis) History of aortic valvular stenosis (Acute) Memory impairment of gradual onset Benign localized prostatic hyperplasia with lower urinary tract symptoms (LUTS) Hyponatremia Osteoporosis Hypothyroidism Dyslipidemia Benign hypertension Medical History (Updated 02/07/25 @ 22:46 by Jelena Mijares PA-C) Tinea cruris Murmur History of squamous cell carcinoma in situ Hearing loss Vitamin D deficiency Allergic rhinitis Arthritis of both hands Tremor Recurrent falls Cyclic citrullinated peptide (CCP) antibody positive Surgical History History of colonoscopy History of tooth extraction History of squamous cell carcinoma excision Hx of hernia repair Hx of adenoidectomy Hx of tonsillectomy Family History Grandfather (Paternal) Colorectal cancer Father Myocardial infarction Mother Cancer Denies family history of Ovarian cancer Prostate cancer Breast cancer Social History Smoking Status: Never smoker Second Hand Exposure: No; Do You Dip or Chew Tobacco: No; Hx Alcohol Use: No (UNKNOWN, COGNITIVELY IMPAIRED) Hx Substance Use: No (UNKNOWN, COGNITIVELY IMPAIRED) Preferred Language: Latvian Communication Ability: Impaired Visual Impairment: Limited Hearing Ability: Normal Supervisor [employer] Required: No Beliefs That Will Affect Care: None marital status: Current Living Situation: Spouse current occupational status: retired How many Children do You have: 1 Feels Safe at Home: Yes Childhood Exposure to Second-Hand Smoke: Yes Diet: regular caffeine: No during the past year weight has: remained stable Dental Care, Regularly: Yes Physical Activity Frequency: 3-4 Times per Week Seatbelt Use: always Sunscreen Use: Yes Assistive Devices: None Review of Systems Review of Systems: see HPI Physical Exam Physical Exam: The patient is awake, alert and oriented to self and time only, well developed and well nourished, normocephalic and atraumatic, in no acute distress. Non- toxic appearing. HEENT- EOMI, mucous membranes moist. Hearing grossly intact. Heart-normal S1 and S2. No murmurs, rubs or gallops. Lungs-clear bilaterally, no respiratory distress, no accessory muscle use. Abdomen-normal bowel sounds and soft. No ascites noted. Non-tender. Extremities- no clubbing, cyanosis, or edema. Rheumatologic-normal range of motion. Psychiatric-normal affect. Results & Data Results & Data Vital Signs (Past 12 Hours) Vital Signs Temp Pulse Resp BP Pulse Ox O2 Del Method 02/07/25 20:54 97 Room Air 02/07/25 20:54 87 18 97 Room Air 02/07/25 20:40 36.5 C 77 18 167/95 H 99 Room Air Laboratory Results reviewed cbc and cmp Diagnostic Findings none Medications Administered none ECG Additional Comments: ordered Code Status & VTE Plan Code Status full code VTE Prophylaxis Plan VTE Prophylaxis will be ordered: Yes Supervising Physician Co-Signing Physician Notes Attending addendum: I have physically seen this patient, have supervised the ADELINA's activities, and agree with the H&P unless as otherwise noted. Assessment and Plan: The patient is an 79-year-old male with past medical history including BPH, hypothyroidism, hypertension, hyperlipidemia, and dementia. The patient presented to the ED with family, who reports that his primary caregiver his , is currently in the hospital, and is unsafe for him to be alone at home. Family has brought the patient in for senior care placement Inability to care for self, progressive dementia- Patient is at his baseline. Primary caregiver, , is no longer able to care for him as she is in hospital Consult PT/OT Continue thiamine, Aricept and Namenda BPH- Continue finasteride and tamsulosin Esophageal dysmotility,- Aspiration precautions Hypothyroidism- Continue levothyroxine Hyperlipidemia- Continue simvastatin PG Care Time/CCT Total # of Minutes Spent Total Time Spent with Patient: Total time spent is greater than 50% in coordination of care (as documented) at patient's floor/unit and/or counseling patient: Coding Level of Care Code 30229 INT INP/OBS CARE 3/75MIN Diagnoses Unable to care for self Z78.9 Dementia F03.90 Benign localized prostatic hyperplasia with lower urinary tract symptoms (LUTS) N40.1 Esophageal dysmotility K22.4
[2025-02-08] MEDS ORDERED: DOCUSATE SODIUM 100 MG CAP PO PRN (00:53)
[2025-02-08] MEDS ORDERED: ONDANSETRON INJ 2 MG/ML 2 ML VIAL IV PRN (00:53)
[2025-02-08] MEDS: MEMANTINE HCL 10 MG TAB PO SCH (01:50)
[2025-02-08] MEDS: TAMSULOSIN HCL 0.4 MG CAP PO SCH (01:51)
[2025-02-08] MEDS: SIMVASTATIN 20 MG TAB PO SCH (01:51)
[2025-02-08] MEDS: LEVOTHYROXINE SODIUM 88 MCG TABLET PO SCH (05:36)
[2025-02-08] MEDS: FINASTERIDE 5 MG TAB PO SCH (08:39)
[2025-02-08] MEDS: DONEPEZIL HCL 5 MG TAB PO SCH (08:39)
[2025-02-08] MEDS: ENOXAPARIN INJ 40 MG/0.4 ML SYR SQ SCH (08:39)
--- NOTE | 2025-02-08 10:19 | Hospitalist Progress Note ---
Date of Service February 08, 2025 Assessment & Plan (1) Unable to care for self: (2) Dementia: (3) Benign localized prostatic hyperplasia with lower urinary tract symptoms (LUTS): (4) Esophageal dysmotility: Plan Patient is an 79-year-old male with past medical history of BPH, hypothyroidism, HTN, HLD, and dementia. Patient presented with his family for placement as he has dementia at baseline and his is his primary caregiver who is currently admitted to the hospital. He denies any acute concerns or complaints. #Inability to care for self | Dementia patient with dementia, oriented to person and time only, no acute change in baseline, pleasant at time of admission. Coming in for placement given his is his primary caregiver he was currently admitted to the hospital and it is unsafe for him to be at home alone. He denies any recent falls. - Promote good sleep-wake cycles with dementia, melatonin as needed - Continue Aricept and Namenda - Covid swab ordered with potential placement - negative - PT/OT consulted - Case management following #Esophageal dysmotility previously seen by speech, standard aspiration precautions ordered - With clear lung sounds, patient asymptomatic defer CXR as low concern for acute aspiration pneumonitis on admission #BPH - Bladder scan prn. Continue finasteride and tamsulosin #Hypothyroidism continue levothyroxine #HLD continue simvastatin VTE ppx: Lovenox Dispo: will need placement, PT/OT ordered, CM following Discussed with CM Ordered PT/OT Reviewed outpatient records Admission and Anticipated Discharge Date Admission Date: February 07, 2025 Supervising Physician Co-Signing Physician Notes Attending Attestation - Chart reviewed, care plan d/w TEODORO Miller. I agree w/ the naidu components of her documentation. Gurwinder Terrell MD Subjective Patient seen and evaluated at bedside. He reports "I just feel like laying here all day." He is pleasantly confused (baseline). No acute events overnight. No acute complaints or concerns at this time. He requests some chocolate ice cream, will provide. Physical Exam Physical Exam: General: No acute distress, nondiaphoretic, well-developed, well-nourished. Pleasantly confused, resting in bed. Skin: Warm, dry. No rashes or peripheral edema present. Cardiac: Regular rate and rhythm without murmurs gallops or rubs. Pulm: Clear to auscultation bilaterally without wheezes, rales or rhonchi. Normal respiratory effort. 100% on room air. Abdominal: Soft, nontender, nondistended. Bowel sounds present. Neuro: A&O x2 (self, time - baseline). No focal neurological deficits. Results & Data Results & Data Vital Signs (Past 12 Hours) Vital Signs Temp Pulse Pulse Pulse Resp BP BP 02/08/25 08:17 97.7 F 63 18 137/77 02/08/25 00:37 97.7 F 70 16 137/76 02/08/25 00:15 97.9 F 65 16 112/65 02/08/25 00:00 97.7 F 65 16 112/65 02/07/25 22:48 68 16 117/68 Pulse Ox O2 Del Method 02/08/25 08:17 100 Room Air 02/08/25 00:37 99 Room Air 02/08/25 00:15 98 Room Air 02/08/25 00:00 98 Room Air 02/07/25 22:48 99 Room Air PG Care Time/CCT Total # of Minutes Spent Total Time Spent with Patient: Total time spent is greater than 50% in coordination of care (as documented) at patient's floor/unit and/or counseling patient: Coding Level of Care Code 29292 SUB INP/OBS CARE 3/50MIN Diagnoses Unable to care for self Z78.9 Dementia F03.90 Benign localized prostatic hyperplasia with lower urinary tract symptoms (LUTS) N40.1 Esophageal dysmotility K22.4
--- NOTE | 2025-02-08 12:04 | Electrocardiogram Report ---
Test Reason : Blood Pressure : */* mmHG Vent. Rate : 62 BPM Atrial Rate : 62 BPM P-R Int : 114 ms QRS Dur : 90 ms QT Int : 424 ms P-R-T Axes : 50 62 50 degrees QTcB Int : 430 ms Normal sinus rhythm Normal ECG When compared with ECG of 08-Jun-2024 08:19, Premature atrial complexes are no longer Present Incomplete right bundle branch block is no longer Present Confirmed by Reji Lopez ([id number]) on 02/08/2025 12:04:12 PM Referred By: REFERRED SELF Confirmed By: Reji Lopez
[2025-02-08] MEDS: MELATONIN 3 MG TAB PO PRN (20:12)
[2025-02-08] MEDS: ACETAMINOPHEN 325 MG TAB PO PRN (20:12)
[2025-02-09 09:30] LABS: Thyroid Stimulating Hormone 1.946 uIu/ml (0.300-4.500)
--- NOTE | 2025-02-09 12:23 | Hospitalist Progress Note ---
Date of Service February 09, 2025 Assessment & Plan (1) Unable to care for self: Plan: He currently lives with his who is hospitalized at this time. He will need placement (2) Dementia: Plan: Supportive care. Continue current medical management (3) Benign localized prostatic hyperplasia with lower urinary tract symptoms (LUTS): Plan: Continue current medical management. Stable (4) Esophageal dysmotility: Plan: Stable. Continue current medical management Plan OT and PT assessments have been requested and are pending. He will need placement at the time of discharge. Admission and Anticipated Discharge Date Admission Date: February 07, 2025 Subjective Awake and alert. No distress. Baseline dementia. Thyroid status was checked and is unremarkable. OT and PT assessments requested and pending. He lives with his who is also hospitalized and he will require placement when arrangements are finalized Review of Systems 2 Review of Systems: The patient has baseline dementia and is unable to reliably answer any questions regarding review of systems at this time Physical Exam 2 Physical Exam: General-alert. Oriented to name only. No fever HEENT-Head atraumatic and normocephalic, pupils equal and reactive to light, extraocular muscles intact Neck-no lymphadenopathy or thyromegaly, trachea midline Chest-clear to auscultation. No rales, wheezing or rhonchi Cardiac-regular rate and rhythm, normal S1 and S2 Abdomen-normal bowel sounds, no hepatosplenomegaly Extremities-no cyanosis, clubbing, or edema Neuro-cranial nerves II through XII intact, motor and sensory function within normal limits, strength symmetrical, no focal deficits Psych-normal affect, normal mood Results & Data Results & Data Vital Signs (Past 12 Hours) Vital Signs Temp Pulse Resp BP Pulse Ox O2 Del Method 02/09/25 07:27 36.4 C L 59 L 16 116/66 99 Room Air Laboratory Results 02/07/25 21:00 02/07/25 21:00 PG Care Time/CCT Total # of Minutes Spent Total Time Spent with Patient: Total time spent is greater than 50% in coordination of care (as documented) at patient's floor/unit and/or counseling patient: Coding Level of Care Code 82183 SUB INP/OBS CARE 3/50MIN Diagnoses Unable to care for self Z78.9 Dementia F03.90 Dementia behavioral or psychological symptom: without behavioral, psychotic, or mood disturbance or anxiety Dementia severity: unspecified severity Dementia type: unspecified type Benign localized prostatic hyperplasia with lower urinary tract symptoms (LUTS) N40.1 Esophageal dysmotility K22.4 (2) Dementia Dementia behavioral or psychological symptom: without behavioral, psychotic, or mood disturbance or anxiety Dementia severity: unspecified severity D ementia type: unspecified type Qualified Code(s): F03.90 - Unspecified dementia, unspecified severity, without behavioral disturbance, psychotic disturbance, mood disturbance, and anxiety
--- NOTE | 2025-02-10 13:02 | Hospitalist Progress Note ---
"Date of Service February 10, 2025 Assessment & Plan (1) Unable to care for self: (2) Dementia: (3) Benign localized prostatic hyperplasia with lower urinary tract symptoms (LUTS): (4) Esophageal dysmotility: Plan Patient is an 79-year-old male with past medical history of BPH, hypothyroidism, HTN, HLD, and dementia. Patient presented with his family for placement as he has dementia at baseline and his is his primary caregiver who is currently admitted to the hospital. He denies any acute concerns or complaints. #Inability to care for self | Dementia No acute change in baseline. Admitted secondary for placement given his (primary caregiver) is currently admitted to hospital. Unsafe for patient to be home alone Promote good sleep wake cycles Continue Aricept & Namenda PT/OT --> recommending [facility] --> family agreeable to rehab stay, referrals sent to [facility] [facility] on 02/10. #Esophageal dysmotility previously seen by speech, standard aspiration precautions ordered With clear lung sounds, patient asymptomatic defer CXR as low concern for acute aspiration pneumonitis on admission #BPH - Bladder scan prn. Continue finasteride and tamsulosin #Hypothyroidism continue levothyroxine #HLD continue simvastatin DVT prophylaxis: Lovenox Code: full Discussed w/ & CM 02/10. Admission and Anticipated Discharge Date Admission Date: February 07, 2025 Supervising Physician Co-Signing Physician Notes The patient was not seen by me. The chart was reviewed. Case discussed with TEODORO Flores. Agree with assessment and plan Subjective Randall seen and examined this morning. he was pleasantly confused at time of encounter. Denied any complaints. Physical Exam Constitutional: alert to self Respiratory: normal respiratory effort Skin: no rashes, warm and dry Psychiatric: alert to self, pleasant Results & Data Results & Data Vital Signs (Past 12 Hours) Vital Signs Temp Pulse Resp BP Pulse Ox O2 Del Method 02/10/25 07:01 36.6 C 64 16 108/70 97 Room Air PG Care Time/CCT Total # of Minutes Spent Total Time Spent with Patient: Total time spent is greater than 50% in coordination of care (as documented) at patient's floor/unit and/or counseling patient: Coding Level of Care Code 38762 SUB INP/OBS CARE 2/35MIN Diagnoses Unable to care for self Z78.9 Dementia F03.90 Dementia behavioral or psychological symptom: without behavioral, psychotic, or mood disturbance or anxiety Dementia severity: unspecified severity Dementia type: unspecified type Benign localized prostatic hyperplasia with lower urinary tract symptoms (LUTS) N40.1 Esophageal dysmotility K22.4 (2) Dementia Dementia behavioral or psychological symptom: without behavioral, psychotic, or mood disturbance or anxiety Dementia severity: unspecified severity Dementia type: unspecified type Qualified Code(s): F03.90 - Unspecified dementia, unspecified severity, without behavioral disturbance, psychotic disturbance, mood disturbance, and anxiety"
--- NOTE | 2025-02-11 09:57 | Hospitalist Progress Note ---
"Date of Service February 11, 2025 Assessment & Plan (1) Unable to care for self: (2) Dementia: (3) Benign localized prostatic hyperplasia with lower urinary tract symptoms (LUTS): (4) Esophageal dysmotility: Plan Patient is an 79-year-old male with past medical history of BPH, hypothyroidism, HTN, HLD, and dementia. Patient presented with his family for placement as he has dementia at baseline and his is his primary caregiver who is currently admitted to the hospital. He denies any acute concerns or complaints. #Inability to care for self | Dementia No acute change in baseline. Admitted secondary for placement given his (primary caregiver) is currently admitted to hospital. Unsafe for patient to be home alone Promote good sleep wake cycles Continue Aricept & Namenda PT/OT --> [facility] --> family agreeable to rehab stay, referrals sent to [facility] [facility] on 02/10. Possible dc to [place] [facility] on 02/13. #Esophageal dysmotility previously seen by speech, standard aspiration precautions ordered With clear lung sounds, patient asymptomatic defer CXR as low concern for acute aspiration pneumonitis on admission #BPH - Bladder scan prn. Continue finasteride and tamsulosin #Hypothyroidism continue levothyroxine #HLD continue simvastatin DVT prophylaxis: Lovenox Code: full Discussed CM 02/11. Admission and Anticipated Discharge Date Admission Date: February 07, 2025 Supervising Physician Co-Signing Physician Notes The patient was not seen by me. The chart was reviewed. Case discussed with TEODORO Flores. Agree with assessment and plan Subjective Randall was seen and examined this morning. He denied any complaints today. Was resting eating breakfast. Physical Exam Constitutional: WD/WN, vitals as above Eyes: PERRL, conjunctivae normal, anicteric sclerae Respiratory: normal respiratory effort Skin: no rashes, warm and dry Psychiatric: pleasantly confused, oriented to self only Results & Data Results & Data Vital Signs (Past 12 Hours) Vital Signs Temp Pulse Resp BP Pulse Ox O2 Del Method 02/11/25 09:15 36.6 C 85 16 116/69 93 Room Air 02/10/25 23:34 36.6 C 73 16 116/71 97 Room Air PG Care Time/CCT Total # of Minutes Spent Total Time Spent with Patient: Total time spent is greater than 50% in coordination of care (as documented) at patient's floor/unit and/or counseling patient: Coding Level of Care Code 22328 SUB INP/OBS CARE Diagnoses Unable to care for self Z78.9 Dementia F03.90 Dementia behavioral or psychological symptom: without behavioral, psychotic, or mood disturbance or anxiety Dementia severity: unspecified severity Dementia type: unspecified type Benign localized prostatic hyperplasia with lower urinary tract symptoms (LUTS) N40.1 Esophageal dysmotility K22.4 (2) Dementia Dementia behavioral or psychological symptom: without behavioral, psychotic, or mood disturbance or anxiety Dementia severity: unspecified severity Dementia type: unspecified type Qualified Code(s): F03.90 - Unspecified dementia, unspecified severity, without behavioral disturbance, psychotic disturbance, mood disturbance, and anxiety"
--- NOTE | 2025-02-12 10:36 | Hospitalist Progress Note ---
"Date of Service February 12, 2025 Assessment & Plan (1) Unable to care for self: (2) Dementia: (3) Benign localized prostatic hyperplasia with lower urinary tract symptoms (LUTS): (4) Esophageal dysmotility: Plan Patient is an 79-year-old male with past medical history of BPH, hypothyroidism, HTN, HLD, and dementia. Patient presented with his family for placement as he has dementia at baseline and his is his primary caregiver who is currently admitted to the hospital. He denies any acute concerns or complaints. Age-related physical debility #Inability to care for self | Dementia No acute change in baseline. Admitted secondary for placement given his (primary caregiver) is currently admitted to hospital. Unsafe for patient to be home alone Promote good sleep wake cycles Continue Aricept & Namenda PT/OT --> [facility] --> family agreeable to rehab stay, Dc to [place] [facility] 02/13 in AM. #Esophageal dysmotility previously seen by speech, standard aspiration precautions ordered With clear lung sounds, patient asymptomatic defer CXR as low concern for acute aspiration pneumonitis on admission #BPH - Bladder scan prn. Continue finasteride and tamsulosin #Hypothyroidism continue levothyroxine #HLD continue simvastatin DVT prophylaxis: Lovenox Code: full Discussed CM 02/12. Admission and Anticipated Discharge Date Admission Date: February 07, 2025 Supervising Physician Co-Signing Physician Notes The patient was not seen by me. The chart was reviewed. Case discussed with TEODORO Flores. Agree with assessment and plan Subjective Randall seen and examined this morning. He is doing well and denies any complaints today. Physical Exam Constitutional: WD/WN, vitals as above Eyes: PERRL, conjunctivae normal, anicteric sclerae Respiratory: normal respiratory effort Skin: no rashes, warm and dry Results & Data Results & Data Vital Signs (Past 12 Hours) Vital Signs Temp Pulse Resp BP Pulse Ox O2 Del Method 02/12/25 08:13 Room Air 02/12/25 07:50 36.7 C 69 18 105/59 L 97 Room Air PG Care Time/CCT Total # of Minutes Spent Total Time Spent with Patient: Total time spent is greater than 50% in coordination of care (as documented) at patient's floor/unit and/or counseling patient: Coding Level of Care Code 33970 SUB INP/OBS CARE Diagnoses Unable to care for self Z78.9 Dementia F03.90 Dementia behavioral or psychological symptom: without behavioral, psychotic, or mood disturbance or anxiety Dementia severity: unspecified severity Dementia type: unspecified type Benign localized prostatic hyperplasia with lower urinary tract symptoms (LUTS) N40.1 Esophageal dysmotility K22.4 (2) Dementia Dementia behavioral or psychological symptom: without behavioral, psychotic, or mood disturbance or anxiety Dementia severity: unspecified severity Dementia type: unspecified type Qualified Code(s): F03.90 - Unspecified dementia, unspecified severity, without behavioral disturbance, psychotic dist urbance, mood disturbance, and anxiety"
[2025-02-13 07:24] VITALS: BP 117/71; PULSE 65; RESP 16; TEMP 97.5; O2SAT 98
--- NOTE | 2025-02-13 08:45 | Discharge Summary ---
"Discharge Summary Date of Service February 13, 2025 Principal Dx & Hospital Course #1 = Principal Diagnosis (1) Unable to care for self: (2) Dementia: (3) Benign localized prostatic hyperplasia with lower urinary tract symptoms (LUTS): (4) Esophageal dysmotility: Plan Patient is an 79-year-old male with past medical history of BPH, hypothyroidism, HTN, HLD, and dementia. Patient presented with his family for placement as he has dementia at baseline and his is his primary caregiver who is currently admitted to the hospital. He denies any acute concerns or complaints. Age-related physical debility #Inability to care for self | Dementia No acute change in baseline. Admitted secondary for placement given his (primary caregiver) is currently admitted to hospital. Unsafe for patient to be home alone Promote good sleep wake cycles Continue Aricept & Namenda PT/OT --> [facility] --> family agreeable to rehab stay, Dc to [facility] 02/13 #Esophageal dysmotility previously seen by speech With clear lung sounds, patient asymptomatic defer CXR as low concern for acute aspiration pneumonitis on admission #BPH - Continue finasteride and tamsulosin #Hypothyroidism continue levothyroxine #HLD continue simvastatin Discharged to SN[facility] rehab 02/13 Admission HPI Per Admitting Provider Patient is an 79-year-old male with past medical history of BPH, hypothyroidism, HTN, HLD, and dementia. Patient presented with his family for placement as he has dementia at baseline and his is his primary caregiver who is currently admitted to the hospital. He denies any acute concerns or complaints. Patient seen at bedside with his daughter and son-in-law present. He is feeling well - he denies any dizziness, lightheadedness, headaches, chest pain, sh ortness of breath, cough, congestion, abdominal pain. He denies any recent falls. He is oriented to person and time only however answers questions well at bedside. He did get his morning medications however is due for evening medications. He wishes to be full code, discussed with family at bedside. It is unclear as to if he will need short-term placement for long-term placement and pending his 's clinical course. He was admitted for a prolonged stay in June of this year due to pneumonia, influenza A, and SIADH awaiting placement. He was discharged to [facility] and ended up returning home with his . Discharge Exam Constitutional alert to self only. Respiratory normal respiratory effort Skin no rashes, warm and dry Psychiatric alert to self only. Discharge Plan Discharge Items Patient Disposition: Transfer Retirement Fac Reason For Visit: PLACEMENT Discharge Diagnosis: Unable to care for self at home, placement Condition on Discharge: Good Activity: Resume your previous activity Non-emergency contact: Primary Care Provider Call non-emergency contact if: you have any medication questions, your symptoms worsen and you have a fever Follow-up/Referrals: Gigi Smiley DO [Primary Care Provider] - Diet: Regular Addtl Attending Provider Instructions: For [place] Care: No medication changes No antibiotics Pending Studies at Discharge: No Stand-Alone Forms: My [facility] Skilled Items Patient informed of condition?: Yes DNR: No Discharge Level of Care: Acute rehab Communicable Disease: No Discharge Prognosis: Stable Lines: None Urinary Catheter: No Medications and DC Order Prescriptions: Continued cholecalciferol (vitamin D3) 400 unit capsule 800 units PO BID Qty: 30 0RF simvastatin 20 mg tablet 20 mg PO QPM Qty: 90 3RF memantine 10 mg tablet 10 mg PO BID Qty: 180 3RF multivitamin tablet 1 tab PO DAILY diclofenac sodium [Arthritis Pain (diclofenac)] 1 % gel 2 g topical QID Qty: 100 5RF Rx Instructions: Unable to verify OTC med at this date/time. Apply to single elbow, wrist or hand; for hand includes palm/fingers/back of hand levothyroxine 88 mcg tablet 88 mcg PO QAM Qty: 100 0RF RSVPreF3 antigen-AS01E (PF) 120 mcg/0.5 mL suspension for reconstitution 0.5 ml IM ONCE Qty: 1 0RF donepezil 5 mg tablet 5 mg PO QAM Qty: 90 3RF calcium citrate 250 mg calcium tablet 600 mg PO DAILY Qty: 30 0RF tamsulosin 0.4 mg capsule 0.4 mg PO HS Rx Instructions: Take 30 minutes after a meal finasteride 5 mg tablet 5 mg PO QAM thiamine HCl (vitamin B1) 100 mg Tablet 100 mg PO QAM Qty: 30 0RF Discharge Orders: Discharge Order (Routine); Ordered 02/13/25 Ordered By: Richelle Araya Admission Data Admit Date/Time: 02/07/25 22:36 Attending Provider: Salvador Murrieta Admit Provider: Randy Rivera Primary Care Provider: Gigi Smiley Other Providers: Randy Rivera; [facility]; [facility] Other Interventions: Discharge Summary Assessment (RN) Last Done: 02/13/25 08:47 Hospital Stay Data Consultations 02/07/25 22:04 ED Decision to Admit Stat Pending Results Patient Have Any Pending Studies at Discharge: No Discharge Instructions Given to Patient (Per Discharging Provider) For [place] Care: No medication changes No antibiotics Supervising Physician Co-Signing Physician Notes The patient was not seen by me. The chart was reviewed. Case discussed with TEODORO Flores. Agree with assessment and plan Total Time Total Time Spent Total Time Spent (In Minutes): 35 Total Time Includes: Examination of the Patient, Discharge Planning, Medication Reconciliation, Communication With Other Providers and Other Coding Level of Care Code 33060 INP/OBS DISCH >30 MIN Diagnoses Unable to care for self Z78.9 Dementia F03.90 Dementia behavioral or psychological symptom: without behavioral, psychotic, or mood disturbance or anxiety Dementia severity: unspecified severity Dementia type: unspecified type Benign localized prostatic hyperplasia with lower urinary tract symptoms (LUTS) N40.1 Esophageal dysmotility K22.4"
== END 2025-02-13 09:52 | DRG 884 ==
LOC: ED 20:35 → SUATTDRO 22:36 → 3N 22:36